=== PATIENT | female | born 1955 | race Caucasian/White ===

== ENCOUNTER → 2016-06-26 | Outpatient (CLI) | payer OTHER ==
[2016-06-26 10:21] LABS: Non-African American GFR(MDRD) >60 (>60 ml/min/1.73 sqM)
--- NOTE | 2016-06-26 15:06 | MR ---
MRI brain with and without contrast HISTORY: Meningioma Multiplanar multisequence and postcontrast images through the brain following 20 cc MultiHance IV Correlation to prior MRI brain 28 November 2015 There is no restricted diffusion to suggest subacute ischemia. Encephalomalacia, postop changes prese nt in the left temporal lobe are again noted, there is ex vacuo phenomenon the frontal horn of the le ft lateral ventricle. Some enhancement of the meninges is stable. 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 Inflammatory changes in the left frontal sinus are again seen, there is gliotic change in the left fr ontal lobe as on prior exam, there are scattered hyperintensities on inversion recovery and T2-weight ed sequences within the subcortical and periventricular white matter. There are approximately 50 lesi ons present. No hemorrhage or hydrocephalus. Corpus callosum, pituitary, cervical medullary junction, cerebellopontine angles are normal. IMPRESSION: Essentially stable exam.
== END | disposition home or self-care (01) ==
LOC: RADMRIMAIN 10:05
PROVIDERS: ATTEND Neurological Surgery
DX: D32.9 Benign neoplasm of meninges, unspecified (principal)
CPT/HCPCS: 82565; 70553; A9577

== ENCOUNTER → 2017-05-07 | Outpatient (CLI) | payer BC ==
[2017-05-07 13:13] LABS: Basophils # (A) 0.1 k/uL (0-0.2); Basophils % (A) 1 %; Eosinophils # (A) 0.5 k/uL (0-0.7); Eosinophils % (A) 7 %; HCT 45.1 % (34.0-46.0); HGB 13.9 gm/dL (11.4-16.0); Lymphocytes # (A) 1.6 k/uL (1.0-4.8); Lymphocytes % (A) 23 %; MCH 27.8 pg (25.0-35.0); MCHC 30.9 g/dL (31.0-37.0); MCV 90.2 fL (80.0-100.0); Mean Platelet Volume 7.1; Monocytes # (A) 0.3 k/uL (0-1.0); Monocytes % (A) 5 %; Neutrophils # (A) 4.3 k/uL (1.3-7.7); Neutrophils % (A) 61 %; Platelet Count 192 k/uL (150-450); RDW 13.7 % (11.5-15.5)
[2017-05-08 13:42] LABS: Alt. alternata IgE Class CLASS 0; Alternaria alternata IgE <0.35 kU/L (<0.35); Asperg. fumagatus IgE <0.35 kU/L (<0.35); Asperg. fumagatus IgE Class CLASS 0; Bermuda Grass IgE <0.35 kU/L (<0.35); Birch(Com.Silvr) IgE <0.35 kU/L (<0.35); Birch(Com.Silvr) IgE Class CLASS 0; Cat Epith & Dander IgE <0.35 kU/L (<0.35); Cat Epith & Dander IgE Class CLASS 0; Clad herbarum IgE <0.35 kU/L (<0.35); Cockroach IgE <0.35 kU/L (<0.35); Cottonwood IgE <0.35 kU/L (<0.35); Dermato. Pteronyssinus IgE <0.35 kU/L (<0.35); Dermato. farinae IgE <0.35 kU/L (<0.35); Dermato. farinae IgE Class CLASS 0; Dog Dander IgE <0.35 kU/L (<0.35); Elm IgE <0.35 kU/L (<0.35); Maple (Box Elder) IgE <0.35 kU/L (<0.35); Maple (Box Elder) IgE Class CLASS 0; Mountain Cedar IgE <0.35 kU/L (<0.35); Mountain Cedar IgE Class CLASS 0; Mouse Urine IgE Class CLASS 0; Nettle IgE <0.35 kU/L (<0.35); Nettle IgE Class CLASS 0; Oak IgE <0.35 kU/L (<0.35); Penicillium notatum IgE Class CLASS 0; Rough Marshelder IgE <0.35 kU/L (<0.35); Rough Marshelder IgE Class CLASS 0; Timothy Grass IgE <0.35 kU/L (<0.35); White Ash IgE Class CLASS 0
== END | disposition home or self-care (01) ==
LOC: LABWHC1 12:19
PROVIDERS: ATTEND Internal Medicine Sleep Medicine
DX: B44.81 Allergic bronchopulmonary aspergillosis (principal)
CPT/HCPCS: 36415; 82785; 85025; 86001; 86003; 86606; 86609

== ENCOUNTER → 2017-12-04 | Outpatient (CLI) | payer BC ==
--- NOTE | 2017-12-06 09:48 | MM ---
Reason for exam: screening (asymptomatic). Last mammogram was performed 2 years and 5 months ago. History: Patient is postmenopausal and had first child at age 34. Family history of premenopausal breast cancer in sister at age 30. Benign cyst aspiration of the right breast. 3 benign excisional biopsies of the left breast. Physical Findings: A clinical breast exam by your physician is recommended on an annual basis and results should be correlated with mammographic findings. MG 3D Screening Mammo W/Cad Bilateral CC, MLO, and XCCL view(s) were taken. Prior study comparison: July 19, 2015, bilateral MG screening mammo w CAD. December 03, 2011, bilateral digital screening mammo w/CAD. There are scattered fibroglandular densities. Stable calcifications. No significant changes when compared with prior studies. ASSESSMENT: Benign, BI-RAD 2 RECOMMENDATION: Routine screening mammogram of both breasts in 1 year.
== END | disposition home or self-care (01) ==
LOC: RADMAMWWP 08:44
PROVIDERS: ATTEND Family Medicine
DX: Z12.31 Encounter for screening mammogram for malignant neoplasm of breast (principal)
CPT/HCPCS: 77063; 77067

== ENCOUNTER → 2019-02-26 | Outpatient (CLI) | payer MEDICARE, BC ==
--- NOTE | 2019-02-27 11:29 | MM ---
Reason for exam: screening (asymptomatic). Last mammogram was performed 1 year and 3 months ago. History: Patient is postmenopausal and had first child at age 34. Family history of premenopausal breast cancer in sister at age 30. Benign cyst aspiration of the right breast. 3 benign excisional biopsies of the left breast. Physical Findings: A clinical breast exam by your physician is recommended on an annual basis and results should be correlated with mammographic findings. MG 3D Screening Mammo W/Cad Bilateral CC and MLO view(s) were taken. Prior study comparison: December 04, 2017, bilateral MG 3d screening mammo w/cad. July 19, 2015, bilateral MG screening mammo w CAD. There are scattered fibroglandular densities. Stable calcifications. No significant changes when compared with prior studies. ASSESSMENT: Benign, BI-RAD 2 RECOMMENDATION: Routine screening mammogram of both breasts in 1 year.
== END | disposition home or self-care (01) ==
LOC: RADMAMWWP 13:26
PROVIDERS: ATTEND Family Medicine
DX: Z12.31 Encounter for screening mammogram for malignant neoplasm of breast (principal)
CPT/HCPCS: 77063; 77067

== ENCOUNTER → 2019-09-08 | Outpatient (CLI) | payer MEDICARE, BC ==
[2019-09-08 16:05] LABS: African American GFR (CKD) >90 (>60 ml/min/1.73 sqM); Blood Urea Nitrogen 10 mg/dL (7-17); Non-African American GFR(CKD) >90 (>60 ml/min/1.73 sqM)
--- NOTE | 2019-09-09 07:38 | CT ---
EXAMINATION TYPE: CT soft tissue neck w con, CT ChestAbdPelvis w con DATE OF EXAM: 09/08/2019 5:28 PM COMPARISON: CT cervical and brain spine dated 08/04/2013 HISTORY: Diffuse palpable adenopathy and fatigue. CT DLP: 747.4 (accession [id number]), 2891.1 (accession [id number]) mGycm Automated exposure control for dose reduction was used. CONTRAST: CT scan of the neck, chest abdomen and pelvis is performed following with IV Contrast, patient inject ed with 100ml mL of Isovue 300. Axial images are obtained, coronal and sagittal reformatted images a re reviewed. FINDINGS: NECK: Multiple nodes are present bilaterally which are not enlarged including parenchymal parotid nod es, and along the cervical chains, supraclavicular regions Airway: No gross abnormality seen. Parotid/submandibular glands: No gross abnormality seen. Carotid/Vascular Structures: Mild atheromatous changes are present at the carotid bifurcations. Osseous Structures: There is a sclerotic appearance to the calvarium and visualized1 bones diffusely Other: At the wing of the sphenoid on the left there is a soft tissue with some scattered calcificati ons mass present as on prior CT, postop changes are noted along the middle cranial fossa laterally on the left which are new compared to prior exam. CHEST: There is some motion. Calcified granuloma is present in left lower lobe, there is a noncalcifi ed nodule also present in the left lower lobe measuring only 6 mm. Subpleural nodules are present in the left lower lobe measuring 7 mm posterior laterally. Calcified left hilar nodes are present. Some probable scarring present or atelectatic change along the right hemidiaphragm which is elevated, mult iple subcentimeter soft tissue smooth margin nodules are present in the right lower lobe, right middl e lobe. There are coronary artery calcifications. No pleural or pericardial effusion. Left axillary node is enlarged measuring approximately 1.3 cm in short axis as well as in the larger node with short axis measurement of 1.6 cm, right axillary node shows a short axis of 15 mm as well a s an additional node showing similar size, there are also subcentimeter nodes present bilaterally. No mediastinal or hilar adenopathy. ABDOMEN: Liver shows no mass is enlarged. Gallbladder shows some increased attenuation luminal lead w hich may represent stones. The spleen is enlarged. There is no adrenal mass. Right kidney shows a foc us measuring approximately 2 cm in the upper pole anteriorly which does not meet criteria for a cyst, Hounsfield unit measurements are approximately 74. Pancreas is unremarkable. There is no bowel obstr uction or retroperitoneal adenopathy. Aorta shows normal caliber with atheromatous change. There is n o pelvic adenopathy. Inguinal nodes are not enlarged. Uterus and adnexal structures are unremarkable. Uterus is within normal limits. Trace fluid present along the right paracolic gutter. Osseous structures are diffusely sclerotic. There is bilateral spondylolysis at L5, anterolisthesis g rade 1 L5-S1. Multilevel spondylosis is present. IMPRESSION: Consider myeloproliferative disorders, lymphoma. Hepatosplenomegaly. Indeterminate right renal mass. Cholelithiasis. Old granulomatous disease. Coronary artery disease.
== END | disposition home or self-care (01) ==
LOC: RADCTMAIN 15:13
PROVIDERS: ATTEND Internal Medicine Hematology & Oncology
DX: R16.2 Hepatomegaly with splenomegaly, not elsewhere classified (principal); K80.20 Calculus of gallbladder without cholecystitis without obstruction; I25.10 Atherosclerotic heart disease of native coronary artery without angina pectoris; R59.0 Localized enlarged lymph nodes
CPT/HCPCS: 82565; 84520; 70491; 71260; 74177; 36415; Q9967

== ENCOUNTER → 2019-09-21 | Day surgery (SDC) | payer MEDICARE, BC ==
[2019-09-18 10:07] VITALS: BMI 48.2
[~2019-09-21] MED LIST: ACETAMINOPHEN TAB 500 MG TAB ONE; ACETAMINOPHEN TAB 500 MG TAB PO ONE; ALBUTEROL INHALER 60 PUFF/8 GM INHALER (MHU) INHALATION ONE; BUPIVACAIN-EPI 0.25%-1:200,000 30 ML VIAL SQ ONE; DEXAMETHASONE SOD PHOSPHATE 10 MG/ML 1 ML VIAL IV ONE; HEPARIN SODIUM,PORCINE 5,000 UNIT/ML 1 ML VIAL ONE; HYDROcodone/APAP 5-325MG 1 EACH TAB PO PRN; HYDROmorphone 0.5 MG/0.5 ML SYRINGE IVP PRN; LACTATED RINGERS 1,000 ML IV SCH; LIDOCAINE 1% (10MG/ML) FOR IV START INTRADERMA PRN; LIDOCAINE 1% INJ 10MG/ML (20 ML MDV) ONE; MIDAZOLAM 2 MG/2 ML VIAL IV PRN; NALOXONE 0.4 MG/ML 1 ML VIAL IV PRN; ONDANSETRON 4 MG/2 ML VIAL ONE; PHENYLEPHRINE-0.9% NACL SYG 1 MG/10 ML SYRINGE ONE; PROPOFOL 10 MG/ML 20 ML VIAL IV ONE; Pre Op ABX Message 1 EACH MISC MISCELLANE ONE; SODIUM CHLORIDE 0.9% 100 ML with ceFAZolin 2,000 MG IV ONE; SUCCINYLCHOLINE CHLORIDE 100 MG/5 ML SYR IV ONE; fentaNYL (PF) 50 MCG/ML 2 ML AMP ONE
[2019-09-21] MEDS: HEPARIN SODIUM,PORCINE 5,000 UNIT/ML 1 ML VIAL SQ ONE ×2 (07:17→08:14)
--- NOTE | 2019-09-21 08:20 | P.HPADDEND ---
H&P Addendum H&P Addendum Date: 09/21/19 Patient is here today for scheduled excisional lymph node biopsy left occipital region. On exam and preop however the patient's lymph node felt smaller than when seen in the office a few weeks ago. Both axillary regions still with lymphadenopathy unchanged in size. The right side seems more superficial in nature. After discussing with the patient and her family who decided to change our location of our excisional lymph node biopsy to the right axilla. Risks again reviewed including bleeding infection numbness burning nerve injury seroma and inadequate specimen. She understands and wishes to proceed.
--- NOTE | 2019-09-21 09:26 | P.OP ---
Date of Procedure: 09/21/19 Procedure(s) Performed: PREOPERATIVE DIAGNOSIS: Generalized adenopathy POSTOPERATIVE DIAGNOSIS: Same PROCEDURE: Excisional biopsy deep right axillary lymph node SURGEON: Belen VILLASEÑORL: Williams Beaulieu ANESTHESIA: Gen. COMPLICATIONS: None OPERATIVE PROCEDURE: patient placed in the operative table in the supine position. The patient was placed under general anesthesia. The right axillary region was prepped and draped sterilely. A curvilinear incision was made in the right axilla. Dissection through the subcutaneous tissues took place using electrocautery. Small vessels or lymphatics were clipped. The patient's enlarged lymph node was identified and carefully dissected using a combination of electrocautery and the LigaSure device. The patient had 2 matted nodes the largest measured 2 to 2.5 cm. This was fully excised and sent to pathology as a fresh specimen. The operative site was inspected. No bleeding was seen. The subcutaneous tissues were closed using 3-0 Vicryl sutures. The skin was closed using a running 4-0 Monocryl stitch. Skin glue and sterile dressings were applied. DISPOSITION: Stable to recovery room
[2019-09-21 09:40] VITALS: TEMP 97.6
[2019-09-21 10:16] VITALS: RESP 17
[2019-09-21 11:51] VITALS: BP 117/68; PULSE 81
== END ==
LOC: OR 06:39
PROVIDERS: ATTEND Surgery
DX: R59.1 Generalized enlarged lymph nodes (principal); D69.6 Thrombocytopenia, unspecified; J45.909 Unspecified asthma, uncomplicated; K76.9 Liver disease, unspecified; R53.1 Weakness; I10 Essential (primary) hypertension; E78.5 Hyperlipidemia, unspecified; M51.9 Unspecified thoracic, thoracolumbar and lumbosacral intervertebral disc disorder; D32.0 Benign neoplasm of cerebral meninges; Z79.51 Long term (current) use of inhaled steroids; Z79.899 Other long term (current) drug therapy; Z98.42 Cataract extraction status, left eye; Z96.1 Presence of intraocular lens; Z96.653 Presence of artificial knee joint, bilateral; Z98.890 Other specified postprocedural states; Z87.891 Personal history of nicotine dependence; Z80.3 Family history of malignant neoplasm of breast; Z80.42 Family history of malignant neoplasm of prostate
CPT/HCPCS: 38525; J2250; J1644; J1100; J0690; J2001; J3010; J2370; J0330; J2704

== ENCOUNTER 2019-09-25 20:07 | Emergency (ER) | payer MEDICARE, BC ==
[2019-09-25] MEDS ORDERED: RX INFO: IV CONTRAST WAS GIVEN 1 EACH MISC MISCELLANE PRN (20:34)
--- NOTE | 2019-09-25 20:37 | ED ---
General Adult HPI - General Chief complaint: Recheck/Abnormal Lab/Rx Stated complaint: Hearing problems Time Seen by Provider: 09/25/19 20:20 Source: patient Mode of arrival: wheelchair Limitations: no limitations - History of Present Illness Initial comments: Dictation was produced using [employer] dictation software. please excuse any grammatical, word or spelling errors. This patient was cared for during a federal and state declared state of [facility] secondary to Covid 19 Chief Complaint: 63-year-old female past medical history of brain tumor status post excision 4 years ago. History of Present Illness: Patient 63-year-old female she has past medical history of brain cancer that was removed 4 years ago. Patient unable to tole rate what exactly that tumor was. She states that over the last several days she's been experiencing hearing changes. On the left side she feels like a whooshing noise like a constant River flowing. On the right ear she hears Charmaine. Patient has a noticing paresthesias to the arms or legs. Denies ataxia. No visual loss. She reports that she had a surgery to remove the brain mass however she states he were not able to remove all of it. States it is located to the frontal region. The ROS documented in this emergency department record has been reviewed and confirmed by me. Those systems with pertinent positive or negative responses have been documented in the HPI. All other systems are other negative and/or noncontributory. PHYSICAL EXAM: General Impression: Alert and oriented x3, not in acute distress HEENT: Normocephalic atraumatic, extra-ocular movements intact, pupils equal and reactive to light bilaterally, mucous membranes moist, bilateral tympanic membranes clear Cardiovascular: Heart regular rate and rhythm Chest: Able to complete full sentences, no retractions, no tachypnea Abdomen: abdomen soft, non-tender, non-distended, no organomegaly Musculoskeletal: Pulses present and equal in all extremities, no peripheral edema Motor: no focal deficits noted Neurological: CN II-XII grossly intact, no focal motor or sensory deficits noted, not ataxic, gait stable Skin: Intact with no visualized rashes Psych: Normal affect and mood ED course:64-year-old female presents with hearing changes she has a history of brain tumor status post excision. Vital signs upon arrival are within acceptable limits. Computed tomography scan of the brain shows large sella turcica mass on the left side which appears to be not changed significantly compared to old computed tomography scan from 2014. There is no acute intracranial abnormality. Laboratory evaluation was obtained with multiple abnormalities. Patient leukocytosis 16.1, hemoglobin 7.5 platelet count of 60. Discussed these findings with patient. Patient states she's been having blood work that has been performed outpatient by a specialist at's. She reports that these lab abnormalities that are apparent on her lab work today is known by her specialist and currently being evaluated and monitored. Coag panel is unremarkable. Metabolic panel is negative. Patient is well-appearing at bedside. She is ag reeable for discharge. Patient has any bleeding. No dark stools. No nausea vomiting. Patient feels well. Patient told that her hemoglobin is low and to seek immediate medical attention if she starts developing symptoms of lightheadedness, fatigue, orthostasis or dark bloody stools. Patient is agreeable. She has an appointment with her doctor on Saturday. Patient given ENT referral for hearing changes. This point is not entirely clear why patient is experiencing these hearing issues. This likely related to intracranial mass. EKG interpretation: Ventricular rate 79, sinus rhythm,. 144, QRS 80, QTC 470. No SD prolongation, no QTC prolongation, no ST or T-wave changes noted. . Overall, this EKG is unremarkable - Related Data Home Medications Medication Instructions Recorded Confirmed Lisinopril [Prinivil] 20 mg PO DAILY 01/22/17 09/25/19 Oxybutynin Chloride [Oxybutynin 10 mg PO DAILY 01/22/17 09/25/19 Chloride ER] Cholecalciferol (Vitamin D3) 125 mcg PO DAILY 09/17/19 09/25/19 [Vitamin D3] Cyanocobalamin (Vitamin B-12) 1,000 mcg PO DAILY 09/17/19 09/25/19 [Vitamin B-12] Gabapentin [Neurontin] 200 mg PO HS 09/17/19 09/25/19 Montelukast [Singulair] 10 mg PO HS 09/17/19 09/25/19 Multivitamins, Thera [Multivitamin 1 tab PO DAILY 09/17/19 09/25/19 (formulary)] Allopurinol [Zyloprim] 300 mg PO DAILY 09/25/19 09/25/19 Budesonide-Formot 160-4.5 Mcg 1 puff INHALATION RT-DAILY PRN 09/25/19 09/25/19 [Symbicort 160-4.5 Mcg Inhaler] Calcium Carbonate [Calcium] 600 mg PO DAILY 09/25/19 09/25/19 Allergies Allergy/AdvReac Type Severity Reaction Status Date / Time No Known Allergies Allergy Verified 09/25/19 21:24 Review of Systems ROS Statement: Those systems with pertinent positive or pertinent negative responses have been documented in the HPI. ROS Other: All systems not noted in ROS Statement are negative. Past Medical History Past Medical History: Hyperlipidemia, Hypertension, Respiratory Disorder Additional Past Medical History / Comment(s): Chronic low back pain, degenerative disc disease, benign neoplasm of cerebral meninges. hx asthma last few months more sob unable to get into pulmonary dr until saturday.no inhalers usedor o2 History of Any Multi-Drug Resistant Organisms: None Reported Past Surgical History: Breast Surgery, Section, Joint Replacement Additional Past Surgical History / Comment(s): brain surgery. BILAT TKA. LT SHOULDER SX. LT CATARACT REMOVED WITH LENS IMPLANT Past Anesthesia/Blood Transfusion Reactions: No Reported Reaction Past Psychological History: No Psychological Hx Reported Smoking Status: Former smoker Past Alcohol Use History: Occasional Past Drug Use History: None Reported - Past Family History Sister(s) Family Medical History: Cancer General Exam Limitations: no limitations Course Vital Signs 09/25/19 09/25/19 09/25/19 20:11 20:50 21:05 Temperature 98.0 F 98.7 F 98.1 F Pulse Rate 81 75 71 Respiratory 20 18 18 Rate Blood Pressure 138/74 130/71 121/69 O2 Sat by Pulse 93 L 96 97 Oximetry 09/25/19 09/25/19 21:20 21:35 Temperature Pulse Rate 72 70 Respiratory 16 18 Rate Blood Pressure 126/65 119/61 O2 Sat by Pulse 98 97 Oximetry Medical Decision Making - Lab Data Result diagrams: 09/25/19 20:36 09/25/19 20:36 Lab Results 09/25/19 09/25/19 09/25/19 Range/Units 20:36 20:36 20:36 WBC 16.1 H (3.8-10.6) k/uL RBC 2.02 L (3.80-5.40) m/uL Hgb 7.5 L (11.4-16.0) gm/dL Hct 24.9 L (34.0-46.0) % MCV 123.3 H (80.0-100.0) fL MCH 37.3 H (25.0-35.0) pg MCHC 30.2 L (31.0-37.0) g/dL RDW 20.2 H (11.5-15.5) % Plt Count 60 L (150-450) k/uL Neutrophils % (Manual) 59 % Band Neutrophils % 2 % Lymphocytes % (Manual) 32 % Monocytes % (Manual) 5 % Eosinophils % (Manual) 1 % Metamyelocytes % 2 % Neutrophils # (Manual) 9.80 H (1.3-7.7) k/uL Lymphocytes # (Manual) 5.15 H (1.0-4.8) k/uL Monocytes # (Manual) 0.81 (0-1.0) k/uL Eosinophils # (Manual) 0.16 (0-0.7) k/uL Metamyelocytes # (Man) 0.32 H (0) k/uL Nucleated RBCs 18 H (0-0) /100 WBC Manual Slide Review Performed Polychromasia Present Hypochromasia Marked Hypochromasia (manual) Present Poikilocytosis Moderate Poikilocytosis (manual Present Anisocytosis Moderate Anisocytosis (manual) Present Macrocytosis Marked A PT 10.2 (9.0-12.0) sec INR 1.0 (<1.2) APTT 22.3 (22.0-30.0) sec Sodium 137 (137-145) mmol/L Potassium 3.7 (3.5-5.1) mmol/L Chloride 105 (98-107) mmol/L Carbon Dioxide 23 (22-30) mmol/L Anion Gap 9 mmol/L BUN 11 (7-17) mg/dL Creatinine 0.43 L (0.52-1.04) mg/dL Est GFR (CKD-EPI)AfAm >90 (>60 ml/min/1.73 sqM) Est GFR (CKD-EPI)NonAf >90 (>60 ml/min/1.73 sqM) Glucose 157 H (74-99) mg/dL Calcium 8.4 (8.4-10.2) mg/dL Disposition Clinical Impression: Hearing abnormally acute Disposition: HOME SELF-CARE Condition: Good Instructions (If sedation given, give patient instructions): Anemia (ED), Thrombocytopenia (ED) Is patient prescribed a controlled substance at d/c from ED?: No Referrals: Jorge Andrade DO [Primary Care Provider] - 1-2 days Lars Saenz DO [Doctor of Osteopathic Medicine] - 1-2 days Time of Disposition: 22:37
[2019-09-25 20:57] LABS: Partial Thromboplastin Time 22.3 sec (22.0-30.0); Prothrombin Time 10.2 sec (9.0-12.0)
[2019-09-25 21:05] LABS: Anisocytosis Moderate; HCT 24.9 % (34.0-46.0); HGB 7.5 gm/dL (11.4-16.0); Hypochromasia Marked; MCH 37.3 pg (25.0-35.0); MCHC 30.2 g/dL (31.0-37.0); MCV 123.3 fL (80.0-100.0); Macrocytosis Marked; Mean Platelet Volume 11.6; Poikilocytosis Moderate; RBC 2.02 m/uL (3.80-5.40); RDW 20.2 % (11.5-15.5)
[2019-09-25 21:07] LABS: Platelet Count 60 k/uL (150-450)
[2019-09-25 21:08] LABS: African American GFR (CKD) >90 (>60 ml/min/1.73 sqM); Anion Gap 9 mmol/L; Blood Urea Nitrogen 11 mg/dL (7-17); Calcium 8.4 mg/dL (8.4-10.2); Carbon Dioxide 23 mmol/L (22-30); Chloride 105 mmol/L (98-107); Glucose 157 mg/dL (74-99); Non-African American GFR(CKD) >90 (>60 ml/min/1.73 sqM); Potassium 3.7 mmol/L (3.5-5.1); Sodium 137 mmol/L (137-145)
[2019-09-25 21:40] LABS: Band Neutrophils % 2 %; Metamyelocytes % 2 %; Neutrophils % (M) 59 %; Nucleated Red Blood Cells 18 /100 WBC (0-0); Total Cells Counted 200
[2019-09-25 21:41] LABS: Anisocytosis (M) Present; Eosinophils # (M) 0.16 k/uL (0-0.7); Lymphocytes # (M) 5.15 k/uL (1.0-4.8); Metamyelocytes # (M) 0.32 k/uL (0); Monocytes # (M) 0.81 k/uL (0-1.0); Poikilocytosis (M) Present; Polychromasia Present; WBC 16.1 k/uL (3.8-10.6)
[2019-09-25 21:42] LABS: Hypochromasia (M) Present
[2019-09-25 21:49] VITALS: RESP 18
--- NOTE | 2019-09-25 22:12 | CT ---
EXAMINATION TYPE: CT brain w con DATE OF EXAM: 09/25/2019 COMPARISON: 11/20/2013 HISTORY: Brain mass CT DLP: 1739.4 mGycm Automated exposure control for dose reduction was used. CONTRAST: Performed with IV Contrast, patient injected with 100 mL of Isovue 300. There is a 2.1 x 2.2 cm high density mass at the greater wing of the sphenoid bone on the left side a t the anterior clinoid process. 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 There is hypodensity in the adjacent posterior frontal lobe and anterior left temporal lobe. There is old left temporal cran iotomy defect. There is hyperostosis frontalis. Noncontrast scan was not performed. There is some mil d enlargement of the frontal horn of the left lateral ventricle consistent with encephalomalacia. The re is no midline shift. I see no sign of intracranial hemorrhage. IMPRESSION: Large mass at the sella turcica on the left side which is probably enhancing and consistent with tube rculum sella meningioma that is not changed significantly in size compared to old CT scan. There is o ld encephalomalacia left frontal and left temporal lobe. No acute intracranial abnormality.
[2019-09-25 23:02] VITALS: BP 116/60; PULSE 77; TEMP 97.7
== END 2019-09-25 23:00 | disposition home or self-care (01) ==
LOC: EC 20:07
DX: H93.239 Hyperacusis, unspecified ear (principal); I10 Essential (primary) hypertension; Z79.51 Long term (current) use of inhaled steroids; Z79.899 Other long term (current) drug therapy; Z87.891 Personal history of nicotine dependence; Z96.653 Presence of artificial knee joint, bilateral
CPT/HCPCS: 36415; 80048; 85025; 85610; 85730; 70460; 99284; Q9967

== ENCOUNTER → 2019-09-30 | Outpatient (CLI) | payer MEDICARE, BC ==
--- NOTE | 2019-09-30 14:47 | XR ---
EXAMINATION TYPE: XR wrist limited LT DATE OF EXAM: 09/30/2019 COMPARISON: NONE HISTORY: Pain TECHNIQUE: Two views submitted. FINDINGS: The osseous structures are intact. There is severe arthropathy of the first carpal metacarpal joint. No destructive changes. Sclerosis involving the lunate bone likely chronic. No acute fracture or disl ocation. IMPRESSION: 1. Severe arthropathy first carpal metacarpal joint in a pattern most typical of osteoarthritis.
== END | disposition home or self-care (01) ==
LOC: RADXRMAIN 14:11
PROVIDERS: ATTEND Internal Medicine Hematology & Oncology
DX: M19.032 Primary osteoarthritis, left wrist (principal); J45.909 Unspecified asthma, uncomplicated; Z71.3 Dietary counseling and surveillance
CPT/HCPCS: 86850; 86870; 86880; 86900; 86901; 86920

== ENCOUNTER → 2019-10-02 | Outpatient (CLI) | payer MEDICARE, BC ==
--- NOTE | 2019-10-05 08:00 | PE ---
Nuclear medicine PET/CT HISTORY: Breast carcinoma, initial Patient received 11.5 mCi F-18 FDG intravenously in delayed scanning was performed from the skull bas e to the mid thighs. Localization and attenuation correction CT scan was performed. Correlation to chest abdomen pelvis CT 09/08/2019 Chest and neck: Bilateral axillary nodes show uptake. There are bilateral soft tissue nodules within the parotid glands which may represent lymph nodes and show mild uptake. Mild uptake present at the j ugulodigastric node on the right. No supraclavicular adenopathy. No mediastinal, hilar adenopathy. Ca lcified left hilar nodes, left lower lobe nodule is present. There is minimal right-sided dependent a telectatic change, there may be minimal right pleural effusion. There are dense coronary artery calci fications. ABDOMEN: There is no evident liver mass. No adrenal lesion or retroperitoneal adenopathy. Aorta shows normal caliber. There is no ascites. Uterus and adnexal structures are unremarkable. Diverticular ch anges associated with the colon. Osseous structures show diffuse sclerotic foci throughout the spine, sternum, pelvis and proximal low er extremities, clavicles, proximal upper extremities and shoulders, there are some areas of associat ed uptake. Bilateral spondylolysis present at L5, there is anterolisthesis grade 1 L5-S1. Lytic lesio n noted to the left of midline in the L2 vertebral body measures only 1 cm IMPRESSION: Metastatic disease to the skeleton. There are additional foci of abnormal uptake involvin g the bilateral axilla, parotid glands as described.
== END | disposition home or self-care (01) ==
LOC: RADPETMAIN 15:50
PROVIDERS: ATTEND Internal Medicine Hematology & Oncology
DX: C79.51 Secondary malignant neoplasm of bone (principal); R93.89 Abnormal findings on diagnostic imaging of other specified body structures; C50.811 Malignant neoplasm of overlapping sites of right female breast
CPT/HCPCS: 78815; A9552

== ENCOUNTER → 2019-11-13 | Outpatient (CLI) | payer MEDICARE, BC ==
--- NOTE | 2019-11-13 10:45 | MR ---
EXAMINATION TYPE: MR brain wo/w con DATE OF EXAM: 11/13/2019 COMPARISON: Prior MR brain 06/26/2016, CT 09/25/2019 HISTORY: Breast Cancer, visual disturbance TECHNIQUE: Multiplanar, multisequence images of the brain and brainstem is performed without and with IV contras t, utilizing 11 mL intravenous Gadavist . FINDINGS: Diffusion weighted images demonstrate no evidence of a recent infarct or other diffusion ab normality. There is stable postop changes in the middle cranial fossae, sphenoid wing meningioma aga in noted and shows a stable appearance, there is encephalomalacia present in the left frontal and tem poral lobes with associated scoliosis, extraocular phenomenon of the frontal horn of the left lateral ventricle. The ventricular system and cisternal spaces are stable. White matter signal changes are a gain noted and extensive, not significantly changed compared to prior exam accounting for differences in technique. The brain volume is age appropriate. Midline structures demonstrate normal morphology. The craniocervical junction appears within normal limits. Post contrast images demonstrate stable abnormal enhancement of the patient's mass along the sphenoid wing on the left, femoral enhancement present and is more conspicuous than on prior exam. T he dural venous sinuses appear patent. The visualized sinuses are clear and the globes are intact. Fo cus of enhancement and T2, inversion recovery T2 bright signal is present in the posterior parietal s kull corresponding to a lucent focus on CT. Lesion is not seen on prior brain MRI. IMPRESSION: Metastatic disease to bone. Dural enhancement more conspicuous than on prior exam.
== END | disposition home or self-care (01) ==
LOC: RADMRIMAIN 07:32
PROVIDERS: ATTEND Internal Medicine Hematology & Oncology
DX: C79.51 Secondary malignant neoplasm of bone (principal); H53.8 Other visual disturbances
CPT/HCPCS: 70553; A9585

== ENCOUNTER → 2019-12-29 | Outpatient (CLI) | payer MEDICARE, BC ==
--- NOTE | 2019-12-29 18:47 | XR ---
Result: History: Right wrist pain. History of malignancy. Comparison: None available. Technique: 3 views of the right wrist. Findings: Bone mineralization is appropriate for age. There is no acute fracture or dislocation. There is severe osteoarthritis of the thumb basal joints. Otherwise scattered mild degenerative changes elsewhere. No radiographic evidence of destructive lesi ons. Impression: No acute osseous abnormality. 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
== END | disposition home or self-care (01) ==
LOC: RAD 16:24
PROVIDERS: ATTEND Internal Medicine Hematology & Oncology
DX: M19.041 Primary osteoarthritis, right hand (principal); C50.911 Malignant neoplasm of unspecified site of right female breast

== ENCOUNTER → 2020-02-24 | Outpatient (CLI) | payer MEDICARE, BC | END | disposition home or self-care (01) | LOC: RADMRIMAIN 09:19 | PROVIDERS: ATTEND Internal Medicine Hematology & Oncology | DX: Z53.9 Procedure and treatment not carried out, unspecified reason (principal) ==

== ENCOUNTER → 2020-08-18 | Outpatient (CLI) | payer MEDICARE, BC ==
[2020-08-18 12:17] LABS: African American GFR (CKD) >90 (>60 ml/min/1.73 sqM); Blood Urea Nitrogen 10 mg/dL (7-17); Non-African American GFR(CKD) >90 (>60 ml/min/1.73 sqM)
--- NOTE | 2020-08-18 17:22 | NM ---
EXAMINATION TYPE: NM bone scan whole body DATE OF EXAM: 08/18/2020 COMPARISON: Same day CT study. HISTORY: Breast cancer. Delayed whole-body scanning was performed following the injection of 23.2 mCi Tc 99m MDP. Images acq uired 3.25 hours post injection. Whole body images in anterior and posterior projection along with ad ditional spot images of the thorax abdomen and pelvis are acquired. FINDINGS: There is focal radiotracer uptake overlying the right breast marked as contamination by technologist. Diffuse osseous sclerotic metastatic disease on CT is not as well-seen on bone scan as there is over all diminished excretion. Findings are consistent with SuperScan appearance. Lucency bilateral knees likely product of metallic prosthesis at this level. IMPRESSION: Diffuse osseous metastatic disease seen better on CT versus bone scan.
--- NOTE | 2020-08-18 18:30 | CT ---
EXAMINATION TYPE: CT ChestAbdPelvis w con DATE OF EXAM: 08/18/2020 COMPARISON: Prior PET/CT October 02, [address] September 08, 2019 HISTORY: Breast cancer. Currently on chemotherapy. CT DLP: 2474.5 mGycm. Automated Exposure Control for Dose Reduction was Utilized. CONTRAST: CT scan of the thorax, abdomen and pelvis is performed with IV Contrast, patient injected with 100 mL of Isovue M300. FINDINGS: LUNGS: There is a 7 mm superior calcified left lower lobe nodule or granuloma axial image 27 redemons trated. There is stable 4 to 5 mm noncalcified nodule inferior posterior to this axial image 29 redem onstrated. A few additional scattered subcentimeter nodules in the right lower lobe are redemonstrate d. No new or enlarging nodules. Low lung volumes redemonstrated. There is no pleural effusion or pneu mothorax seen. The tracheobronchial tree is patent. MEDIASTINUM: There are no greater than 1 cm hilar or mediastinal lymph nodes. No cardiomegaly or pe ricardial effusion is seen. Moderate coronary artery calcification redemonstrated. OTHER: Prominent bilateral axillary lymph nodes remain present. Largest left axilla measures 1.8 x 1. 3 cm current study series 3 image 5 similar to prior. There is scar tissue and surgical clips towards the right axilla current study axial image 9. Inferior to this persistent prominent lymph nodes rede monstrated though smaller in size versus prior study. LIVER/GB: Subcentimeter hypodense lesion in the hepatic dome axial image 35 is stable presumed benign . Dependent small gallstones. New mild inferior periHepatic ascites. PANCREAS: No significant abnormality is seen. SPLEEN: No significant abnormality is seen. ADRENALS: No significant abnormality is seen. KIDNEYS: No significant abnormality is seen. BOWEL: Oral contrast reaches level of the left colon. No suspicious small or large bowel dilatation. GENITAL ORGANS: Anteverted uterus. Scattered bilateral pelvic phleboliths LYMPH NODES: No new greater than 1cm abdominal or pelvic lymph nodes are appreciated. OSSEOUS STRUCTURES: Diffuse osseous sclerotic metastatic disease involving all visualized osseous str uctures is more prominent from older study. Bilateral pars defect L5 level with spondylolisthesis L5- S1 and advanced disc space narrowing. OTHER: Mild intra-abdominal and intrapelvic peritoneal ascites including along paracolic gutters. IMPRESSION: Interval surgery right axilla. Prominent right axillary lymph nodes are identified but l ess prominent versus prior studies. Continued diffuse osseous sclerotic metastatic disease progressio n. Left axillary adenopathy stable from prior studies. No new or enlarging masses or adenopathy other crowe identified. New Mild intra-abdominal ascites of uncertain etiology.
== END | disposition home or self-care (01) ==
LOC: RADNMMAIN 11:01
PROVIDERS: ATTEND Internal Medicine Hematology & Oncology
DX: C79.51 Secondary malignant neoplasm of bone (principal); C50.919 Malignant neoplasm of unspecified site of unspecified female breast; R18.8 Other ascites; R59.0 Localized enlarged lymph nodes
CPT/HCPCS: 82565; 84520; 71260; 74177; 36415; 78306; A9503; Q9967 ×2

== ENCOUNTER 2020-09-16 17:42 | Inpatient (IN) | payer MEDICARE, BC ==
--- NOTE | 2020-09-16 18:05 | ED ---
General Adult HPI - General Chief complaint: Shortness of Breath Stated complaint: confusion Time Seen by Provider: 09/16/20 17:59 Source: patient, family Mode of arrival: wheelchair Limitations: no limitations - History of Present Illness Initial comments: Patient presents to the ED with her son for evaluation. Patient states that she has felt generally weak for the past several days. Patient states that she has metastatic breast cancer (with bone mets), and she states that she is currently being treated with oral chemotherapy. Patient's son states that the patient has been more confused recently, and he is concerned that she is a fall risk. He states that the patient lives alone. Patient admits to having a mild, chronic and unchanged cough. Patient also admits to having chronic and unchanged dyspnea. Patient denies having any pain, fever or chills, headache, focal neuro deficit, neck pain or stiffness, chest pain, hemoptysis, palpitations, syncope, abdominal pain, nausea/vomiting/diarrhea, bloody or melanotic stool, dysuria/hematuria/urinary frequency/urinary symptoms, leg or calf swelling or pain, or any other symptoms or complaints. - Related Data Home Medications Medication Instructions Recorded Confirmed Oxybutynin Chloride [Oxybutynin 10 mg PO DAILY@0901/22/17 09/16/20 Chloride ER] lisinopriL [Prinivil] 20 mg PO DAILY@0901/22/17 09/16/20 Cholecalciferol (Vitamin D3) 125 mcg PO DAILY 09/17/19 09/16/20 [Vitamin D3] Cyanocobalamin (Vitamin B-12) 1,000 mcg PO DAILY 09/17/19 09/16/20 [Vitamin B-12] Gabapentin [Neurontin] 200 mg PO HS@199909/17/19 09/16/20 Multivitamins, Thera [Multivitamin 1 tab PO DAILY 09/17/19 09/16/20 (formulary)] Calcium Carbonate [Calcium] 600 mg PO DAILY 09/25/19 09/16/20 Abemaciclib [Verzenio] 50 mg PO BID@1000,2100 09/16/20 09/16/20 Calcium Carbonate [Tums] 500 mg PO QID 09/16/20 09/16/20 Ferrous Sulfate [Feosol] 325 mg PO DAILY 09/16/20 09/16/20 Letrozole [Femara] 2.5 mg PO HS@2000 09/16/20 09/16/20 Ondansetron [Zofran] 4 mg PO Q6H PRN 09/16/20 09/16/20 Allergies Allergy/AdvReac Type Severity Reaction Status Date / Time No Known Allergies Allergy Verified 09/16/20 19:13 Review of Systems ROS Statement: Those systems with pertinent positive or pertinent negative responses have been documented in the HPI. ROS Other: All systems not noted in ROS Statement are negative. Past Medical History Past Medical History: Cancer, Hyperlipidemia, Hypertension, Respiratory Disorder Additional Past Medical History / Comment(s): Chronic low back pain, degenerative disc disease, benign neoplasm of cerebral meninges. hx asthma last few months more sob unable to get into pulmonary dr until saturday.no inhalers usedor o2 History of Any Multi-Drug Resistant Organisms: None Reported Past Surgical History: Breast Surgery, Section, Joint Replacement Additional Past Surgical History / Comment(s): brain surgery. BILAT TKA. LT SHOULDER SX. LT CATARACT REMOVED WITH LENS IMPLANT Past Anesthesia/Blood Transfusion Reactions: No Reported Reaction Past Psychological History: No Psychological Hx Reported Smoking Status: Former smoker Past Alcohol Use History: None Reported Past Drug Use History: None Reported - Past Family History Sister(s) Family Medical History: Cancer General Exam Limitations: no limitations General appearance: alert, in no apparent distress Head exam: Present: atraumatic, normocephalic Eye exam: Present: PERRL, EOMI, scleral icterus ENT exam: Present: mucous membranes moist Neck exam: Present: other (Trachea is in midline). Absent: tenderness, meningismus Respiratory exam: Present: normal lung sounds bilaterally. Absent: respiratory distress, wheezes, rales, rhonchi, stridor Cardiovascular Exam: Present: regular rate, normal rhythm, normal heart sounds, other (Normal radial pulses bilaterally) GI/Abdominal exam: Present: soft. Absent: distended, tenderness, guarding Extremities exam: Present: other (Negative Homans sign bilaterally). Absent: tenderness, pedal edema, calf tenderness Neurological exam: Present: alert, oriented X3, CN II-XII intact. Absent: motor sensory deficit Psychiatric exam: Present: normal affect, normal mood Skin exam: Present: warm, dry, intact, other (Jaundice) Course Vital Signs 09/16/20 09/16/20 09/16/20 17:47 18:04 19:14 Temperature 99.9 F H 98.2 F Pulse Rate 89 85 Pulse Rate [ 92 Radiology Tech ] Respiratory 20 16 Rate Blood Pressure 113/58 109/45 O2 Sat by Pulse 93 L 98 Oximetry 09/16/20 09/16/20 20:31 21:50 Temperature 98.2 F Pulse Rate 98 95 Pulse Rate [ Radiology Tech ] Respiratory 18 18 Rate Blood Pressure 126/69 152/70 O2 Sat by Pulse 97 95 Oximetry - Reevaluation(s) Reevaluation #1: 09/16/20 22:29 Case, H&P, test results and ED management thus far were discussed with Dr. Glover (general surgery). He recommends admitting the patient to the medical service, and he states that he will see the patient in consultation. He also recommends GI consultation. He has no further recommendations at this time. 09/16/20 22:33 Case, H&P, test results, ED management thus far and my discussion with Dr. Glover as above were discussed with Dr. De La Fuente. He accepts hospital admission. He agrees with GI and oncology consultations. He recommends a clear liquid diet. He has no further recommendations at this time. 09/16/20 22:42 Patient and son are aware the patient's test results and my discussions as above. They both agree with hospital admission at this time. Patient denies development of any new symptoms while in the ED. Patient remains alert and breathing comfortably. EKG Findings - EKG Comments: EKG Findings:: Normal sinus rhythm, no ectopy, ventricular rate of 89 bpm, normal [place] and QRS intervals, normal QT interval, normal axis, nonspecific T-wave abnormality Medical Decision Making - Medical Decision Making Given the patient's low-grade fever, leukocytosis and CT/gallbladder ultrasound findings, I suspect that the patient may have pneumonia, as well as gallbladder disease. Patient's bilirubin is elevated and her gallbladder ultrasound shows evidence of acute and chronic cholecystitis. Dr. Glover (general surgeon) was consulted from the ED, and he feels that this may also be a reflection of a choledocholithiasis. He he states that he will see the patient in consultation, and he is also recommended GI consultation. Dr. De La Fuente has accepted hospital admission. Patient was treated with IV Zosyn and IV fluids in the ED. - Lab Data Result diagrams: 09/16/20 20:05 09/16/20 18:45 Lab Results 09/16/20 09/16/20 09/16/20 Range/Units 18:01 18:45 18:45 WBC (3.8-10.6) k/uL RBC (3.80-5.40) m/uL Hgb (11.4-16.0) gm/dL Hct (34.0-46.0) % MCV (80.0-100.0) fL MCH (25.0-35.0) pg MCHC (31.0-37.0) g/dL RDW (11.5-15.5) % Plt Count (150-450) k/uL MPV Neutrophils % (Manual) % Band Neuts % (Manual) % Lymphocytes % (Manual) % Monocytes % (Manual) % Eosinophils % (Manual) % Metamyelocytes % % Myelocytes % % Neutrophils # (Manual) (1.3-7.7) k/uL Lymphocytes # (Manual) (1.0-4.8) k/uL Monocytes # (Manual) (0-1.0) k/uL Eosinophils # (Manual) (0-0.7) k/uL Metamyelocytes # (Man) (0) k/uL Myelocytes # (Manual) (0) k/uL Nucleated RBCs (0-0) /100 WBC Manual Slide Review Polychromasia Hypochromasia Anisocytosis Macrocytosis Winston-Meckling Bodies Fragmented RBCs PT 14.8 H (9.0-12.0) sec INR 1.5 H (<1.2) APTT 27.9 (22.0-30.0) sec D-Dimer 3.47 H (<0.60) mg/L FEU Sodium 131 L (137-145) mmol/L Potassium 5.4 H (3.5-5.1) mmol/L Chloride 104 (98-107) mmol/L Carbon Dioxide 19 L (22-30) mmol/L Anion Gap 8 mmol/L BUN 16 (7-17) mg/dL Creatinine 0.93 (0.52-1.04) mg/dL Est GFR (CKD-EPI)AfAm 75 (>60 ml/min/1.73 sqM) Est GFR (CKD-EPI)NonAf 65 (>60 ml/min/1.73 sqM) Glucose 107 H (74-99) mg/dL Lactic Ac Sepsis Rflx Plasma Lactic Acid Phani (0.7-2.0) mmol/L Calcium 9.9 (8.4-10.2) mg/dL Magnesium 2.5 H (1.6-2.3) mg/dL Total Bilirubin 10.2 H (0.2-1.3) mg/dL AST 205 H (14-36) U/L ALT 43 H (4-34) U/L Alkaline Phosphatase 117 (38-126) U/L Ammonia (<30) umol/L Troponin I (0.000-0.034) ng/mL NT-Pro-B Natriuret Pep pg/mL Total Protein 6.3 (6.3-8.2) g/dL Albumin 3.2 L (3.5-5.0) g/dL Urine Color Dark Brown Urine Appearance Cloudy H (Clear) Urine pH 5.5 (5.0-8.0) Ur Specific [place] 1.023 (1.001-1.035) Urine Protein 1+ H (Negative) Urine Glucose (UA) Negative (Negative) Urine Ketones Trace H (Negative) Urine Blood Trace H (Negative) Urine Nitrite Negative (Negative) Urine Bilirubin 3+ H (Negative) Urine Urobilinogen 8.0 (<2.0) mg/dL Ur Leukocyte Esterase Small H (Negative) Urine RBC 2 (0-5) /hpf Urine WBC 10 H (0-5) /hpf Ur Squamous Epith Cells 1 (0-4) /hpf Urine Mucus Many H (None) /hpf Coronavirus (PCR) (Not Detectd) 09/16/20 09/16/20 09/16/20 Range/Units 18:45 18:45 18:45 WBC (3.8-10.6) k/uL RBC (3.80-5.40) m/uL Hgb (11.4-16.0) gm/dL Hct (34.0-46.0) % MCV (80.0-100.0) fL MCH (25.0-35.0) pg MCHC (31.0-37.0) g/dL RDW (11.5-15.5) % Plt Count (150-450) k/uL MPV Neutrophils % (Manual) % Band Neuts % (Manual) % Lymphocytes % (Manual) % Monocytes % (Manual) % Eosinophils % (Manual) % Metamyelocytes % % Myelocytes % % Neutrophils # (Manual) (1.3-7.7) k/uL Lymphocytes # (Manual) (1.0-4.8) k/uL Monocytes # (Manual) (0-1.0) k/uL Eosinophils # (Manual) (0-0.7) k/uL Metamyelocytes # (Man) (0) k/uL Myelocytes # (Manual) (0) k/uL Nucleated RBCs (0-0) /100 WBC Manual Slide Review Polychromasia Hypochromasia Anisocytosis Macrocytosis Winston-Meckling Bodies Fragmented RBCs PT (9.0-12.0) sec INR (<1.2) APTT (22.0-30.0) sec D-Dimer (<0.60) mg/L FEU Sodium (137-145) mmol/L Potassium (3.5-5.1) mmol/L Chloride (98-107) mmol/L Carbon Dioxide (22-30) mmol/L Anion Gap mmol/L BUN (7-17) mg/dL Creatinine (0.52-1.04) mg/dL Est GFR (CKD-EPI)AfAm (>60 ml/min/1.73 sqM) Est GFR (CKD-EPI)NonAf (>60 ml/min/1.73 sqM) Glucose (74-99) mg/dL Lactic Ac Sepsis Rflx Plasma Lactic Acid Phani 2.2 H* (0.7-2.0) mmol/L Calcium (8.4-10.2) mg/dL Magnesium (1.6-2.3) mg/dL Total Bilirubin (0.2-1.3) mg/dL AST (14-36) U/L ALT (4-34) U/L Alkaline Phosphatase (38-126) U/L Ammonia 37 H (<30) umol/L Troponin I <0.012 (0.000-0.034) ng/mL NT-Pro-B Natriuret Pep pg/mL Total Protein (6.3-8.2) g/dL Albumin (3.5-5.0) g/dL Urine Color Urine Appearance (Clear) Urine pH (5.0-8.0) Ur Specific [place] (1.001-1.035) Urine Protein (Negative) Urine Glucose (UA) (Negative) Urine Ketones (Negative) Urine Blood (Negative) Urine Nitrite (Negative) Urine Bilirubin (Negative) Urine Urobilinogen (<2.0) mg/dL Ur Leukocyte Esterase (Negative) Urine RBC (0-5) /hpf Urine WBC (0-5) /hpf Ur Squamous Epith Cells (0-4) /hpf Urine Mucus (None) /hpf Coronavirus (PCR) Not Detected (Not Detectd) 09/16/20 09/16/20 09/16/20 Range/Units 19:08 20:05 20:05 WBC 13.4 H (3.8-10.6) k/uL RBC 2.63 L (3.80-5.40) m/uL Hgb 10.6 L (11.4-16.0) gm/dL Hct 31.7 L (34.0-46.0) % MCV 120.6 H (80.0-100.0) fL MCH 40.4 H (25.0-35.0) pg MCHC 33.5 (31.0-37.0) g/dL RDW 19.9 H (11.5-15.5) % Plt Count 120 L (150-450) k/uL MPV 9.6 Neutrophils % (Manual) 57 % Band Neuts % (Manual) 1 % Lymphocytes % (Manual) 30 % Monocytes % (Manual) 10 % Eosinophils % (Manual) 1 % Metamyelocytes % 2 % Myelocytes % 1 % Neutrophils # (Manual) 7.70 (1.3-7.7) k/uL Lymphocytes # (Manual) 4.02 (1.0-4.8) k/uL Monocytes # (Manual) 1.34 H (0-1.0) k/uL Eosinophils # (Manual) 0.13 (0-0.7) k/uL Metamyelocytes # (Man) 0.27 H (0) k/uL Myelocytes # (Manual) 0.13 H (0) k/uL Nucleated RBCs 29 H (0-0) /100 WBC Manual Slide Review Performed Polychromasia Present Hypochromasia Moderate Anisocytosis Slight Macrocytosis Marked A Winston-Meckling Bodies Present Fragmented RBCs Present PT (9.0-12.0) sec INR (<1.2) APTT (22.0-30.0) sec D-Dimer (<0.60) mg/L FEU Sodium (137-145) mmol/L Potassium (3.5-5.1) mmol/L Chloride (98-107) mmol/L Carbon Dioxide (22-30) mmol/L Anion Gap mmol/L BUN (7-17) mg/dL Creatinine (0.52-1.04) mg/dL Est GFR (CKD-EPI)AfAm (>60 ml/min/1.73 sqM) Est GFR (CKD-EPI)NonAf (>60 ml/min/1.73 sqM) Glucose (74-99) mg/dL Lactic Ac Sepsis Rflx Y Plasma Lactic Acid Phani (0.7-2.0) mmol/L Calcium (8.4-10.2) mg/dL Magnesium (1.6-2.3) mg/dL Total Bilirubin (0.2-1.3) mg/dL AST (14-36) U/L ALT (4-34) U/L Alkaline Phosphatase (38-126) U/L Ammonia (<30) umol/L Troponin I (0.000-0.034) ng/mL NT-Pro-B Natriuret Pep 304 pg/mL Total Protein (6.3-8.2) g/dL Albumin (3.5-5.0) g/dL Urine Color Urine Appearance (Clear) Urine pH (5.0-8.0) Ur Specific [place] (1.001-1.035) Urine Protein (Negative) Urine Glucose (UA) (Negative) Urine Ketones (Negative) Urine Blood (Negative) Urine Nitrite (Negative) Urine Bilirubin (Negative) Urine Urobilinogen (<2.0) mg/dL Ur Leukocyte Esterase (Negative) Urine RBC (0-5) /hpf Urine WBC (0-5) /hpf Ur Squamous Epith Cells (0-4) /hpf Urine Mucus (None) /hpf Coronavirus (PCR) (Not Detectd) 09/16/20 Range/Units 22:15 WBC (3.8-10.6) k/uL RBC (3.80-5.40) m/uL Hgb (11.4-16.0) gm/dL Hct (34.0-46.0) % MCV (80.0-100.0) fL MCH (25.0-35.0) pg MCHC (31.0-37.0) g/dL RDW (11.5-15.5) % Plt Count (150-450) k/uL MPV Neutrophils % (Manual) % Band Neuts % (Manual) % Lymphocytes % (Manual) % Monocytes % (Manual) % Eosinophils % (Manual) % Metamyelocytes % % Myelocytes % % Neutrophils # (Manual) (1.3-7.7) k/uL Lymphocytes # (Manual) (1.0-4.8) k/uL Monocytes # (Manual) (0-1.0) k/uL Eosinophils # (Manual) (0-0.7) k/uL Metamyelocytes # (Man) (0) k/uL Myelocytes # (Manual) (0) k/uL Nucleated RBCs (0-0) /100 WBC Manual Slide Review Polychromasia Hypochromasia Anisocytosis Macrocytosis Winston-Meckling Bodies Fragmented RBCs PT (9.0-12.0) sec INR (<1.2) APTT (22.0-30.0) sec D-Dimer (<0.60) mg/L FEU Sodium (137-145) mmol/L Potassium (3.5-5.1) mmol/L Chloride (98-107) mmol/L Carbon Dioxide (22-30) mmol/L Anion Gap mmol/L BUN (7-17) mg/dL Creatinine (0.52-1.04) mg/dL Est GFR (CKD-EPI)AfAm (>60 ml/min/1.73 sqM) Est GFR (CKD-EPI)NonAf (>60 ml/min/1.73 sqM) Glucose (74-99) mg/dL Lactic Ac Sepsis Rflx Plasma Lactic Acid Phani 1.1 (0.7-2.0) mmol/L Calcium (8.4-10.2) mg/dL Magnesium (1.6-2.3) mg/dL Total Bilirubin (0.2-1.3) mg/dL AST (14-36) U/L ALT (4-34) U/L Alkaline Phosphatase (38-126) U/L Ammonia (<30) umol/L Troponin I (0.000-0.034) ng/mL NT-Pro-B Natriuret Pep pg/mL Total Protein (6.3-8.2) g/dL Albumin (3.5-5.0) g/dL Urine Color Urine Appearance (Clear) Urine pH (5.0-8.0) Ur Specific [place] (1.001-1.035) Urine Protein (Negative) Urine Glucose (UA) (Negative) Urine Ketones (Negative) Urine Blood (Negative) Urine Nitrite (Negative) Urine Bilirubin (Negative) Urine Urobilinogen (<2.0) mg/dL Ur Leukocyte Esterase (Negative) Urine RBC (0-5) /hpf Urine WBC (0-5) /hpf Ur Squamous Epith Cells (0-4) /hpf Urine Mucus (None) /hpf Coronavirus (PCR) (Not Detectd) - Radiology Data Radiology results: report reviewed (Chest x-ray: Elevated right hemidiaphragm could relate to paralysis. This appears unchanged compared to old computed tomography scan 08/18/2020. Normal heart.) Noncontrast head CT: Encephalomalacia on the left side without change compared to old exam. Increased density at the greater wing of the sphenoid bone that is consistent with a meningioma without change compared to old exam. CT angiography chest with IV contrast: No evidence of pulmonary embolism. Pulmonary interstitial infiltrates in nonspecific. Interstitial infiltrates are mostly new compared to the computed tomography scan of 08/18/2020. Extensive osteosclerosis that could relate to myelofibrosis. CT abdomen/pelvis with IV contrast: There is moderate abdominal ascites fluid that is increased compared to old exam. Cholelithiasis. Osteosclerosis in the skeleton suggestive of myelofibrosis. Possible decreased renal function. No renal obstruction. Gallbladder ultrasound: There is evidence of acute and chronic cholecystitis. No evidence of Disposition Clinical Impression: Generalized weakness, Confusion, Hyperbilirubinemia, Cholelithiasis Narrative: Possible pneumonia, possible cholecystitis Disposition: ADMITTED IP TO THIS HOSP Condition: Stable Is patient prescribed a controlled substance at d/c from ED?: No Referrals: Jorge Andrade DO [Primary Care Provider] - 1-2 days Time of Disposition: 22:35
[2020-09-16 19:07] LABS: Lactic Acid, Venous 2.2 mmol/L (0.7-2.0)
[2020-09-16 19:08] LABS: Albumin 3.2 g/dL (3.5-5.0); Calcium 9.9 mg/dL (8.4-10.2); Magnesium 2.5 mg/dL (1.6-2.3); Potassium 5.4 mmol/L (3.5-5.1); Total Bilirubin 10.2 mg/dL (0.2-1.3); Total Protein 6.3 g/dL (6.3-8.2)
--- NOTE | 2020-09-16 19:14 | XR ---
EXAMINATION TYPE: XR chest 1V portable DATE OF EXAM: 09/16/2020 COMPARISON: NONE HISTORY: Weakness TECHNIQUE: FINDINGS: There is some elevation of the right diaphragm. Heart size is normal. There are calcified g ranulomata at the pulmonary azucena. There is no heart failure. IMPRESSION: Elevated right diaphragm could relate to paralysis. This appears unchanged compared to ol d CT scan 08/18/2020. Normal heart.
[2020-09-16] MEDS ORDERED: SODIUM CHLORIDE 0.9% 1,000 ML IV ONE (19:28)
[2020-09-16 19:36] LABS: INR 1.5 (<1.2); Partial Thromboplastin Time 27.9 sec (22.0-30.0); Prothrombin Time 14.8 sec (9.0-12.0)
[2020-09-16 19:50] LABS: Appearance,Urine Cloudy (Clear); Bilirubin,Urine 3+ (Negative); Blood,Urine Trace (Negative); Color,Urine Dark Brown; Glucose,Urine (UA) Negative (Negative); Ketones,Urine Trace (Negative); Leukocyte Esterase,Urine Small (Negative); Mucus,Urine Many /hpf; Nitrite,Urine Negative (Negative); PH, Urine 5.5 (5.0-8.0); Protein,Urine 1+ (Negative); RBC,Urine 2 /hpf (0-5); Specific Gravity,Urine 1.023 (1.001-1.035); Squamous Epithelial Cell,Urine 1 /hpf (0-4); WBC,Urine 10 /hpf (0-5)
[2020-09-16 20:19] LABS: Anisocytosis Slight; HCT 31.7 % (34.0-46.0); HGB 10.6 gm/dL (11.4-16.0); Hypochromasia Moderate; MCH 40.4 pg (25.0-35.0); MCHC 33.5 g/dL (31.0-37.0); MCV 120.6 fL (80.0-100.0); Macrocytosis Marked; Mean Platelet Volume 9.6; Platelet Count 120 k/uL (150-450); RBC 2.63 m/uL (3.80-5.40); RDW 19.9 % (11.5-15.5)
--- NOTE | 2020-09-16 20:31 | CT ---
EXAMINATION TYPE: CT brain wo con DATE OF EXAM: 09/16/2020 COMPARISON: 09/25/2019 HISTORY: Altered mental status. History of cancer. CT DLP: 1099.4 mGycm Automated exposure control for dose reduction was used. There is left temporal craniotomy defect. There is hypodensity in the anterior left temporal lobe and also the posterior lateral left frontal lobe consistent with encephalomalacia. There is no midline s hift. There is no evidence of intracranial hemorrhage. There is a 2 cm area of increased density joey cent to the greater wing of the sphenoid bone on the left side appearance consistent with meningioma. IMPRESSION: Encephalomalacia on the left side as above without change compared to old exam. Increased density at the greater wing of the sphenoid bone that is consistent with a meningioma without change compared to old exam.
--- NOTE | 2020-09-16 20:55 | CT ---
EXAMINATION TYPE: CT chest angio for PE DATE OF EXAM: 09/16/2020 COMPARISON: None HISTORY: elevated d-dimer, bone ca CT DLP: 609.3 mGycm Automated exposure control for dose reduction was used. CONTRAST: Performed with IV Contrast, patient injected with 100 mL of Isovue 370. There are 3-D post processed images. There is some mild groundglass interstitial infiltrates in the lungs. There is no evidence of a pulmo nary mass. There is no pleural effusion. There is abdominal ascites. There is no pericardial effusion. Heart size is normal. There is no evidence of filling defect in the pulmonary arteries. There is no mediastinal adenopathy. There are no hilar masses. There is diffuse osteosclerosis in the bony thorax. IMPRESSION: No evidence of pulmonary embolism. Pulmonary interstitial infiltrates are nonspecific. Interstitial infiltrates are mostly new compared to the CT scan of 08/18/2020. Extensive osteosclerosis that could relate to myelofibrosis.
[2020-09-16 20:59] LABS: Band Neutrophils % 1 %; Metamyelocytes % 2 %; Myelocytes % 1 %; Neutrophils % (M) 57 %; Nucleated Red Blood Cells 29 /100 WBC (0-0); Total Cells Counted 200
[2020-09-16 21:00] LABS: Eosinophils # (M) 0.13 k/uL (0-0.7); Lymphocytes # (M) 4.02 k/uL (1.0-4.8); Metamyelocytes # (M) 0.27 k/uL (0); Monocytes # (M) 1.34 k/uL (0-1.0); Myelocytes # (M) 0.13 k/uL (0); Polychromasia Present; WBC 13.4 k/uL (3.8-10.6)
[2020-09-16 21:02] LABS: RBC Fragments Present
[2020-09-16 21:03] LABS: Howell-Jolly Bodies Present
--- NOTE | 2020-09-16 21:08 | CT ---
EXAMINATION TYPE: CT abdomen pelvis w con DATE OF EXAM: 09/16/2020 COMPARISON: 08/18/2020 HISTORY: abdominal pain, hx of bone ca CT DLP: 2429.5 mGycm Automated exposure control for dose reduction was used. CONTRAST: Performed with IV Contrast, patient injected with 100 mL of Isovue 370. Images obtained from the diaphragm to the floor the pelvis with IV contrast. There is moderate abdomi nal ascites. Liver is intact. Spleen measures 13 cm. Liver shows no focal defect. There is no evidenc e of pancreatic mass. The stomach is intact. There are calcified gallstones. There is no adrenal mass. Kidneys show satisfactory contrast opacification. There is no hydronephrosi s. There are right-sided renal parapelvic cysts. There is decreased excretion on the delayed images. There is no retroperitoneal adenopathy. Bladder distends smoothly. There is no inguinal hernia. There are scattered few sigmoid diverticula. There is no evidence of diverticulitis. There is no free air. Appendix is not seen. There is no sign of thickened appendix. There is diffuse osteosclerosis of the skeleton. There is a first-degree L5-S1 spondylolisthesis with bilateral L5 spondylolysis. IMPRESSION: There is moderate abdominal ascites fluid that is increased compared to old exam. Cholelithiasis. Osteosclerosis in the skeleton suggestive of myelofibrosis. Possible decreased renal function. No renal obstruction.
[2020-09-16] MEDS ORDERED: PIPERACILLIN-TAZOBACTAM 4.5 GM in SODIUM CHLORIDE 0.9% 100 ML IVPB STA (21:15)
[2020-09-16] MEDS ORDERED: PIPERACILLIN-TAZOBACTAM 3.375 GM in SODIUM CHLORIDE 0.9% 100 ML IVPB STA (21:46)
--- NOTE | 2020-09-16 22:13 | US ---
EXAMINATION TYPE: US gallbladder DATE OF EXAM: 09/16/2020 COMPARISON: CT CLINICAL HISTORY: Hyperbilirubinemia, gallstones. Patient stated has Breast CA and Bone CA; RUQ pain EXAM MEASUREMENTS: Liver Length: 18.3 cm Gallbladder Wall: 0.5 cm CBD: 0.7 cm Right Kidney: 10.7 x 5.5 x 5.7 cm Pancreas: hyperechoic with lobular borders Liver: enlarged as is greater than18.0cm Gallbladder: multiple lobular isoechoic contents mid lumen with sludge and with hyperechoic focus in fundus; abnormally thickened wall; fluid noted surrounding fundus (ascites is noted). Evidence for sonographic Singh's sign: yes CBD: may be normal for 6th decade Right Kidney: No hydronephrosis or masses seen Ascites noted in right lateral abdomen as patient was RLD on start of US exam. RLQ ascites pocket = 9 .0cm A/P. IMPRESSION: There is evidence of acute and chronic cholecystitis. No evidence of dilated intrahepatic bile ducts. Normal right kidney. Abdominal ascites.
[2020-09-16] MEDS: SODIUM CHLORIDE 0.9% 1,000 ML IV SCH (23:10)
[2020-09-17 08:59] LABS: Albumin 2.7 g/dL (3.5-5.0); Calcium 9.2 mg/dL (8.4-10.2); Potassium 4.6 mmol/L (3.5-5.1); Total Bilirubin 9.6 mg/dL (0.2-1.3); Total Protein 5.5 g/dL (6.3-8.2)
[2020-09-17] MEDS: lisinopriL 20 MG TAB PO SCH (09:03)
[2020-09-17 09:48] LABS: Anisocytosis Moderate; HCT 32.5 % (34.0-46.0); HGB 9.8 gm/dL (11.4-16.0); Hypochromasia Marked; MCH 38.1 pg (25.0-35.0); MCHC 30.3 g/dL (31.0-37.0); Macrocytosis Marked; Platelet Count 113 k/uL (150-450); RBC 2.58 m/uL (3.80-5.40); RDW 20.5 % (11.5-15.5)
[2020-09-17 09:55] LABS: MCV 125.9 fL (80.0-100.0)
--- NOTE | 2020-09-17 10:17 | P.GSCN ---
History of Present Illness Consult date: 09/17/20 Reason for Consult: Cholecystitis History of present illness: 65-year-old female known to our service. Patient had a lymph node biopsy excised last year showing metastatic cancer thought to be lobular breast primary. Patient has had evidence of skeletal metastasis. She came to the ER with her family. She is apparently very weak. She's been treated with oral chemotherapy. The patient was confused. No other significant focused complai nts. Patient was found to have a significant elevation of her bilirubin. She had a CAT scan abdomen and pelvis and ultrasound. She has ascites that is increased when compared to the CAT scan from August 18. She has some gallbladder wall thickening and gallstones. No biliary dilation was appreciated. We were consulted for gallbladder evaluation. GI was also consulted. Review of Systems The patient denies any acute changes in vision or hearing, no dysphagia or odyn ophagia, no chest pain or shortness of breath, no dysuria or hematuria, no headache, no runny nose, no rectal bleeding or melena, no unexplained weight loss Past Medical History Past Medical History: Cancer, Hyperlipidemia, Hypertension, Respiratory Disorder Additional Past Medical History / Comment(s): Chronic low back pain, degene rative disc disease, benign neoplasm of cerebral meninges. hx asthma last few months more sob unable to get into pulmonary dr until saturday.no inhalers usedor o2 History of Any Multi-Drug Resistant Organisms: None Reported Past Surgical History: Breast Surgery, Section, Joint Replacement Additional Past Surgical History / Comment(s): brain surgery. BILAT TKA. LT SHOULDER SX. LT CATARACT REMOVED WITH LENS IMPLANT Past Anesthesia/Blood Transfusion Reactions: No Reported Reaction Past Psychological History: No Psychological Hx Reported Smoking Status: Former smoker Past Alcohol Use History: None Reported Additional Past Alcohol Use History / Comment(s): QUIT SMOKING AGE 29 Past Drug Use History: None Reported - Past Family History Sister(s) Family Medical History: Cancer Medications and Allergies Home Medications Medication Instructions Recorded Confirmed Type Oxybutynin Chloride [Oxybutynin 10 mg PO DAILY@0900 01/22/17 09/16/20 History Chloride ER] lisinopriL [Prinivil] 20 mg PO DAILY@0900 01/22/17 09/16/20 History Cholecalciferol (Vitamin D3) 125 mcg PO DAILY 09/17/19 09/16/20 History [Vitamin D3] Cyanocobalamin (Vitamin B-12) 1,000 mcg PO DAILY 09/17/19 09/16/20 History [Vitamin B-12] Gabapentin [Neurontin] 200 mg PO HS@199909/17/19 09/16/20 History Multivitamins, Thera [Multivitamin 1 tab PO DAILY 09/17/19 09/16/20 History (formulary)] Calcium Carbonate [Calcium] 600 mg PO DAILY 09/25/19 09/16/20 History Abemaciclib [Verzenio] 50 mg PO BID@1000,2100 09/16/20 09/16/20 History Calcium Carbonate [Tums] 500 mg PO QID 09/16/20 09/16/20 History Ferrous Sulfate [Feosol] 325 mg PO DAILY 09/16/20 09/16/20 History Letrozole [Femara] 2.5 mg PO HS@199909/16/20 09/16/20 History Ondansetron [Zofran] 4 mg PO Q6H PRN 09/16/20 09/16/20 History Allergies Allergy/AdvReac Type Severity Reaction Status Date / Time No Known Allergies Allergy Verified 09/16/20 19:13 Surgical - Exam Vital Signs Temp Pulse Resp BP Pulse Ox 99.9 F H 89 20 113/58 93 L 09/16/20 17:47 09/16/20 17:47 09/16/20 17:47 09/16/20 17:47 09/16/20 17:47 Physical exam: General: Well-developed, well-nourished HEENT: Normocephalic, sclerae nonicteric Abdomen: Nontender, mildly distended Extremities: No edema Neuro: Alert and oriented Results - Labs 09/17/20 08:06 09/17/20 08:06 Abnormal Lab Results - Last 24 Hours (Table) 09/16/20 09/16/20 09/16/20 Range/Units 18:01 18:45 18:45 WBC (3.8-10.6) k/uL RBC (3.80-5.40) m/uL Hgb (11.4-16.0) gm/dL Hct (34.0-46.0) % MCV (80.0-100.0) fL MCH (25.0-35.0) pg MCHC (31.0-37.0) g/dL RDW (11.5-15.5) % Plt Count (150-450) k/uL Monocytes # (Manual) (0-1.0) k/uL Metamyelocytes # (Man) (0) k/uL Myelocytes # (Manual) (0) k/uL Nucleated RBCs (0-0) /100 WBC Macrocytosis PT 14.8 H (9.0-12.0) sec INR 1.5 H (<1.2) D-Dimer 3.47 H (<0.60) mg/L FEU Sodium 131 L (137-145) mmol/L Potassium 5.4 H (3.5-5.1) mmol/L Carbon Dioxide 19 L (22-30) mmol/L Glucose 107 H (74-99) mg/dL Plasma Lactic Acid Phani (0.7-2.0) mmol/L Magnesium 2.5 H (1.6-2.3) mg/dL Total Bilirubin 10.2 H (0.2-1.3) mg/dL AST 205 H (14-36) U/L ALT 43 H (4-34) U/L Ammonia (<30) umol/L Total Protein (6.3-8.2) g/dL Albumin 3.2 L (3.5-5.0) g/dL Urine Appearance Cloudy H (Clear) Urine Protein 1+ H (Negative) Urine Ketones Trace H (Negative) Urine Blood Trace H (Negative) Urine Bilirubin 3+ H (Negative) Ur Leukocyte Esterase Small H (Negative) Urine WBC 10 H (0-5) /hpf Urine Mucus Many H (None) /hpf 09/16/20 09/16/20 09/17/20 Range/Units 18:45 20:05 08:06 WBC 13.4 H 13.1 H (3.8-10.6) k/uL RBC 2.63 L 2.58 L (3.80-5.40) m/uL Hgb 10.6 L 9.8 L (11.4-16.0) gm/dL Hct 31.7 L 32.5 L (34.0-46.0) % MCV 120.6 H 125.9 H D (80.0-100.0) fL MCH 40.4 H 38.1 H (25.0-35.0) pg MCHC 30.3 L (31.0-37.0) g/dL RDW 19.9 H 20.5 H (11.5-15.5) % Plt Count 120 L 113 L (150-450) k/uL Monocytes # (Manual) 1.34 H (0-1.0) k/uL Metamyelocytes # (Man) 0.27 H (0) k/uL Myelocytes # (Manual) 0.13 H (0) k/uL Nucleated RBCs 29 H (0-0) /100 WBC Macrocytosis Marked A Marked A PT (9.0-12.0) sec INR (<1.2) D-Dimer (<0.60) mg/L FEU Sodium (137-145) mmol/L Potassium (3.5-5.1) mmol/L Carbon Dioxide (22-30) mmol/L Glucose (74-99) mg/dL Plasma Lactic Acid Phani 2.2 H* (0.7-2.0) mmol/L Magnesium (1.6-2.3) mg/dL Total Bilirubin (0.2-1.3) mg/dL AST (14-36) U/L ALT (4-34) U/L Ammonia 37 H (<30) umol/L Total Protein (6.3-8.2) g/dL Albumin (3.5-5.0) g/dL Urine Appearance (Clear) Urine Protein (Negative) Urine Ketones (Negative) Urine Blood (Negative) Urine Bilirubin (Negative) Ur Leukocyte Esterase (Negative) Urine WBC (0-5) /hpf Urine Mucus (None) /hpf 09/17/20 Range/Units 08:06 WBC (3.8-10.6) k/uL RBC (3.80-5.40) m/uL Hgb (11.4-16.0) gm/dL Hct (34.0-46.0) % MCV (80.0-100.0) fL MCH (25.0-35.0) pg MCHC (31.0-37.0) g/dL RDW (11.5-15.5) % Plt Count (150-450) k/uL Monocytes # (Manual) (0-1.0) k/uL Metamyelocytes # (Man) (0) k/uL Myelocytes # (Manual) (0) k/uL Nucleated RBCs (0-0) /100 WBC Macrocytosis PT (9.0-12.0) sec INR (<1.2) D-Dimer (<0.60) mg/L FEU Sodium 133 L (137-145) mmol/L Potassium (3.5-5.1) mmol/L Carbon Dioxide 21 L (22-30) mmol/L Glucose 112 H (74-99) mg/dL Plasma Lactic Acid Phani (0.7-2.0) mmol/L Magnesium (1.6-2.3) mg/dL Total Bilirubin 9.6 H (0.2-1.3) mg/dL AST 180 H (14-36) U/L ALT 43 H (4-34) U/L Ammonia (<30) umol/L Total Protein 5.5 L (6.3-8.2) g/dL Albumin 2.7 L (3.5-5.0) g/dL Urine Appearance (Clear) Urine Protein (Negative) Urine Ketones (Negative) Urine Blood (Negative) Urine Bilirubin (Negative) Ur Leukocyte Esterase (Negative) Urine WBC (0-5) /hpf Urine Mucus (None) /hpf Diabetes panel 09/16/20 09/17/20 Range/Units 18:45 08:06 Sodium 131 L 133 L (137-145) mmol/L Potassium 5.4 H 4.6 (3.5-5.1) mmol/L Chloride 104 107 (98-107) mmol/L Carbon Dioxide 19 L 21 L (22-30) mmol/L BUN 16 15 (7-17) mg/dL Creatinine 0.93 0.84 (0.52-1.04) mg/dL Glucose 107 H 112 H (74-99) mg/dL Calcium 9.9 9.2 (8.4-10.2) mg/dL AST 205 H 180 H (14-36) U/L ALT 43 H 43 H (4-34) U/L Alkaline Phosphatase 117 98 (38-126) U/L Total Protein 6.3 5.5 L (6.3-8.2) g/dL Albumin 3.2 L 2.7 L (3.5-5.0) g/dL Calcium panel 09/16/20 09/17/20 Range/Units 18:45 08:06 Calcium 9.9 9.2 (8.4-10.2) mg/dL Albumin 3.2 L 2.7 L (3.5-5.0) g/dL Pituitary panel 09/16/20 09/17/20 Range/Units 18:45 08:06 Sodium 131 L 133 L (137-145) mmol/L Potassium 5.4 H 4.6 (3.5-5.1) mmol/L Chloride 104 107 (98-107) mmol/L Carbon Dioxide 19 L 21 L (22-30) mmol/L BUN 16 15 (7-17) mg/dL Creatinine 0.93 0.84 (0.52-1.04) mg/dL Glucose 107 H 112 H (74-99) mg/dL Calcium 9.9 9.2 (8.4-10.2) mg/dL Adrenal panel 09/16/20 09/17/20 Range/Units 18:45 08:06 Sodium 131 L 133 L (137-145) mmol/L Potassium 5.4 H 4.6 (3.5-5.1) mmol/L Chloride 104 107 (98-107) mmol/L Carbon Dioxide 19 L 21 L (22-30) mmol/L BUN 16 15 (7-17) mg/dL Creatinine 0.93 0.84 (0.52-1.04) mg/dL Glucose 107 H 112 H (74-99) mg/dL Calcium 9.9 9.2 (8.4-10.2) mg/dL Total Bilirubin 10.2 H 9.6 H (0.2-1.3) mg/dL AST 205 H 180 H (14-36) U/L ALT 43 H 43 H (4-34) U/L Alkaline Phosphatase 117 98 (38-126) U/L Total Protein 6.3 5.5 L (6.3-8.2) g/dL Albumin 3.2 L 2.7 L (3.5-5.0) g/dL Assessment and Plan (1) Cholecystitis Narrative/Plan: Patient with presentation to ER for confusion and weakness. Patient with known metastatic breast cancer. Thickening of gallbladder wall likely related to the ascites. Ascites could be malignant in nature. Not sure if diagnostic p aracentesis would be beneficial given the known metastatic process. No surgical intervention planned. Doubt cholangitis however await GI evaluation. Recommend oncology evaluation to discuss extended care. Current Visit: Yes Status: Acute Code(s): K81.9 - CHOLECYSTITIS, UNSPECIFIED SNOMED Code(s): 98756593
[2020-09-17 11:41] LABS: Band Neutrophils % 1 %; Metamyelocytes % 2 %; Myelocytes % 3 %; Neutrophils % (M) 55 %; Nucleated Red Blood Cells 31 /100 WBC (0-0); Total Cells Counted 104
[2020-09-17 11:42] LABS: Polychromasia Present
[2020-09-17] MEDS: CALCIUM CARBONATE 500 MG CHEWABLE PO SCH ×3 (13:31→20:50)
[2020-09-17] MEDS: CYANOCOBALAMIN 500 MCG TAB PO SCH (13:31)
[2020-09-17] MEDS: SODIUM CHLORIDE 0.9% 1,000 ML IV SCH (13:32)
[2020-09-17] MEDS: OXYBUTYNIN 10 MG TAB.ER.24 PO SCH (14:00)
[2020-09-17 14:28] LABS: Reticulocyte % 6.5 % (0.5-2.0)
--- NOTE | 2020-09-17 17:42 | P.HPIM ---
History of Present Illness H&P Date: 09/17/20 Chief Complaint: Increasing confusion History of presenting complaint: This is a 65-year-old patient who follows with Dr. Andrade. Oncologist Dr. De La Paz. Patient had presented to the ER with her son. He reported that the patient has been feeling weak for several days. Has known metastatic breast cancer with bone metastasis and is currently being treated with oral chemotherapy. Patient has been becoming increasingly confused recently. Patient has been becoming unsteady. Patient does live alone. Has a slight cough. Has chronic unchanged dyspnea. Patient slow to answer questions. Denies any headache or vision changes. No chest pain. Decreased appetite. No fever no chills. Review of systems: GEN.: Tired, decreased appetite EYES: None HEENT: None NECK: None RESPIRATORY: Chronic shortness of breath CARDIOVASCULAR: None GASTROINTESTINAL: None GENITOURINARY: None MUSCULOSKELETAL: None LYMPHATICS: None HEMATOLOGICAL: None PSYCHIATRY: Forgetful NEUROLOGICAL: None, uses a walker Past medical history to include: Metastatic breast cancer with metastases to the bone on oral chemotherapy, hypertension, hyperlipidemia, DJD, Social history: Remote history of smoking. No alcohol. Lives alone. Family history: Cancer Physical examination: VITAL SIGNS: 98.3, 92, 18, 96 x 61, 98% on 2 L GENERAL: BMI 47.2, laying in bed, tired slightly lethargic but awake. EYES: Pupils equal. Conjunctiva normal. HEENT: External appearance of nose and ears normal, oral cavity grossly normal. NECK: JVD not raised; masses not palpable. HEART: First and second heart sounds are normal; no edema. LUNGS: Respiratory rate increased decreased breath sounds. ABDOMEN: Soft, nontender, liver spleen not palpable, no masses palpable. PSYCH: Patient knows that she is in the hospital. Cannot give the name. Could not tell the month of the year MUSCULAR skeletal: Evidence of OA NEUROLOGICAL: Cranial nerves grossly intact; no facial asymmetry, power and sensation grossly intact. LYMPHATICS: No lymph nodes palpable in the axilla and neck INVESTIGATIONS, reviewed in the clinical context: WBC 10 hemoglobin 9.8 MCV 125 platelets 113 potassium 4.6 creatinine 0.84 Total bilirubin 9.6 AST 18T ALT 43 alkaline phosphatase 98 albumin 2.7 Admission labs: Potassium 5.4 lactic acid 2.2. Total bilirubin 10.2 AST 205 ALT 43 UA positive for small leukoesterase, 10 WBC COVID 19 negative EKG tracing personally reviewed by me-normal sinus rhythm, nonspecific ST segment changes Gallbladder ultrasound: per lobe liver eyesight chronic contents with human with sludge and with hyperechoic focus in the fundus abnormally thickened wall fluid noted surrounding fundus. CT abdomen fundus: Moderate abdominal ascites. Gallstones. Chest CTA: Negative for PE. New pulmonary interstitial infiltrates CT brain: Encephalomyelitis year no midline shift. Chest x-ray film personally reviewed by me-elevated right diaphragm Assessment and plan: -Acute metabolic encephalopathy Patient presents with altered mental status, lethargic last few days. No fever no chills. Patient has encephalomalacia on the computed tomography scan. Need to rule out metastatic disease via MRI of the brain with and without contrast.. -Metastatic breast cancer with metastatic systems the bone On oral chemotherapy. Consult oncology -Morbid obesity BMI 47.2 -Chronic shortness of breath. Computed tomography scan of the chest showing evidence of fibrosis. Clinically does not have any evidence of acute infection. This could be fibrosis from chemotherapy or malignancy. Consult pulmonary. High resolution CT chest. 2-D echo -Thrombocytopenia, likely secondary to underlying malignancy and/or chemotherapy Follow CBC -Essential hypertension Prinivil -Peripheral neuropathy On Neurontin -Vitamin B-12 deficiency B12 supplement -Chronic urinary stress incontinence On oxybutynin -Possible acute on chronic cholecystitis Follow with surgery. IV cefepime. MRI of the brain with and without contrast. High resolution CT chest. IV fluids. Procalcitonin. Consultation to oncology and pulmonary. General surgery Past Medical History Past Medical History: Cancer, Hyperlipidemia, Hypertension, Respiratory Disorder Additional Past Medical History / Comment(s): Chronic low back pain, degenerative disc disease, benign neoplasm of cerebral meninges. hx asthma last few months more sob unable to get into pulmonary dr until saturday.no inhalers usedor o2 History of Any Multi-Drug Resistant Organisms: None Reported Past Surgical History: Breast Surgery, Section, Joint Replacement Additional Past Surgical History / Comment(s): brain surgery. BILAT TKA. LT SHOULDER SX. LT CATARACT REMOVED WITH LENS IMPLANT Past Anesthesia/Blood Transfusion Reactions: No Reported Reaction Past Psychological History: No Psychological Hx Reported Smoking Status: Former smoker Past Alcohol Use History: None Reported Additional Past Alcohol Use History / Comment(s): QUIT SMOKING AGE 29 Past Drug Use History: None Reported - Past Family History Sister(s) Family Medical History: Cancer Medications and Allergies Home Medications Medication Instructions Recorded Confirmed Type Oxybutynin Chloride [Oxybutynin 10 mg PO DAILY@89901/22/17 09/16/20 History Chloride ER] lisinopriL [Prinivil] 20 mg PO DAILY@0900 01/22/17 09/16/20 History Cholecalciferol (Vitamin D3) 125 mcg PO DAILY 09/17/19 09/16/20 History [Vitamin D3] Cyanocobalamin (Vitamin B-12) 1,000 mcg PO DAILY 09/17/19 09/16/20 History [Vitamin B-12] Gabapentin [Neurontin] 200 mg PO HS@199909/17/19 09/16/20 History Multivitamins, Thera [Multivitamin 1 tab PO DAILY 09/17/19 09/16/20 History (formulary)] Calcium Carbonate [Calcium] 600 mg PO DAILY 09/25/19 09/16/20 History Abemaciclib [Verzenio] 50 mg PO BID@1000,2100 09/16/20 09/16/20 History Calcium Carbonate [Tums] 500 mg PO QID 09/16/20 09/16/20 History Ferrous Sulfate [Feosol] 325 mg PO DAILY 09/16/20 09/16/20 History Letrozole [Femara] 2.5 mg PO HS@199909/16/20 09/16/20 History Ondansetron [Zofran] 4 mg PO Q6H PRN 09/16/20 09/16/20 History Allergies Allergy/AdvReac Type Severity Reaction Status Date / Time No Known Allergies Allergy Verified 09/16/20 19:13 Physical Exam Vitals: Vital Signs Temp Pulse Pulse Pulse Resp BP BP 09/17/20 06:53 98.3 F 92 18 96/61 09/17/20 02:00 98.6 F 95 16 96/57 09/17/20 00:10 98.0 F 91 16 112/68 09/16/20 23:16 98.4 F 93 18 117/45 09/16/20 21:50 98.2 F 95 18 152/70 09/16/20 20:31 98 18 126/69 09/16/20 19:14 98.2 F 85 16 109/45 09/16/20 18:04 92 09/16/20 17:47 99.9 F H 89 20 113/58 Pulse Ox 09/17/20 06:53 98 09/17/20 02:00 95 09/17/20 00:10 97 09/16/20 23:16 96 09/16/20 21:50 95 09/16/20 20:31 97 09/16/20 19:14 98 09/16/20 18:04 09/16/20 17:47 93 L Intake and Output 09/16/20 09/17/20 09/17/20 22:59 06:59 14:59 Other: Voiding Method Bedside Commode Bedside Commode # Voids 2 Weight 113.398 kg 113.398 kg 113.398 kg Results CBC & Chem 7: 09/17/20 08:06 09/17/20 08:06 Labs: Abnormal Lab Results - Last 24 Hours (Table) 09/16/20 09/16/20 09/16/20 Range/Units 18:01 18:45 18:45 WBC (3.8-10.6) k/uL RBC (3.80-5.40) m/uL Hgb (11.4-16.0) gm/dL Hct (34.0-46.0) % MCV (80.0-100.0) fL MCH (25.0-35.0) pg MCHC (31.0-37.0) g/dL RDW (11.5-15.5) % Plt Count (150-450) k/uL Monocytes # (Manual) (0-1.0) k/uL Metamyelocytes # (Man) (0) k/uL Myelocytes # (Manual) (0) k/uL Nucleated RBCs (0-0) /100 WBC Macrocytosis PT 14.8 H (9.0-12.0) sec INR 1.5 H (<1.2) D-Dimer 3.47 H (<0.60) mg/L FEU Sodium 131 L (137-145) mmol/L Potassium 5.4 H (3.5-5.1) mmol/L Carbon Dioxide 19 L (22-30) mmol/L Glucose 107 H (74-99) mg/dL Plasma Lactic Acid Phani (0.7-2.0) mmol/L Magnesium 2.5 H (1.6-2.3) mg/dL Total Bilirubin 10.2 H (0.2-1.3) mg/dL AST 205 H (14-36) U/L ALT 43 H (4-34) U/L Ammonia (<30) umol/L Total Protein (6.3-8.2) g/dL Albumin 3.2 L (3.5-5.0) g/dL Urine Appearance Cloudy H (Clear) Urine Protein 1+ H (Negative) Urine Ketones Trace H (Negative) Urine Blood Trace H (Negative) Urine Bilirubin 3+ H (Negative) Ur Leukocyte Esterase Small H (Negative) Urine WBC 10 H (0-5) /hpf Urine Mucus Many H (None) /hpf 09/16/20 09/16/20 09/17/20 Range/Units 18:45 20:05 08:06 WBC 13.4 H (3.8-10.6) k/uL RBC 2.63 L 2.58 L (3.80-5.40) m/uL Hgb 10.6 L 9.8 L (11.4-16.0) gm/dL Hct 31.7 L 32.5 L (34.0-46.0) % MCV 120.6 H 125.9 H D (80.0-100.0) fL MCH 40.4 H 38.1 H (25.0-35.0) pg MCHC 30.3 L (31.0-37.0) g/dL RDW 19.9 H 20.5 H (11.5-15.5) % Plt Count 120 L 113 L (150-450) k/uL Monocytes # (Manual) 1.34 H 1.10 H (0-1.0) k/uL Metamyelocytes # (Man) 0.27 H 0.20 H (0) k/uL Myelocytes # (Manual) 0.13 H 0.30 H (0) k/uL Nucleated RBCs 29 H 31 H (0-0) /100 WBC Macrocytosis Marked A Marked A PT (9.0-12.0) sec INR (<1.2) D-Dimer (<0.60) mg/L FEU Sodium (137-145) mmol/L Potassium (3.5-5.1) mmol/L Carbon Dioxide (22-30) mmol/L Glucose (74-99) mg/dL Plasma Lactic Acid Phani 2.2 H* (0.7-2.0) mmol/L Magnesium (1.6-2.3) mg/dL Total Bilirubin (0.2-1.3) mg/dL AST (14-36) U/L ALT (4-34) U/L Ammonia 37 H (<30) umol/L Total Protein (6.3-8.2) g/dL Albumin (3.5-5.0) g/dL Urine Appearance (Clear) Urine Protein (Negative) Urine Ketones (Negative) Urine Blood (Negative) Urine Bilirubin (Negative) Ur Leukocyte Esterase (Negative) Urine WBC (0-5) /hpf Urine Mucus (None) /hpf 09/17/20 Range/Units 08:06 WBC (3.8-10.6) k/uL RBC (3.80-5.40) m/uL Hgb (11.4-16.0) gm/dL Hct (34.0-46.0) % MCV (80.0-100.0) fL MCH (25.0-35.0) pg MCHC (31.0-37.0) g/dL RDW (11.5-15.5) % Plt Count (150-450) k/uL Monocytes # (Manual) (0-1.0) k/uL Metamyelocytes # (Man) (0) k/uL Myelocytes # (Manual) (0) k/uL Nucleated RBCs (0-0) /100 WBC Macrocytosis PT (9.0-12.0) sec INR (<1.2) D-Dimer (<0.60) mg/L FEU Sodium 133 L (137-145) mmol/L Potassium (3.5-5.1) mmol/L Carbon Dioxide 21 L (22-30) mmol/L Glucose 112 H (74-99) mg/dL Plasma Lactic Acid Phani (0.7-2.0) mmol/L Magnesium (1.6-2.3) mg/dL Total Bilirubin 9.6 H (0.2-1.3) mg/dL AST 180 H (14-36) U/L ALT 43 H (4-34) U/L Ammonia (<30) umol/L Total Protein 5.5 L (6.3-8.2) g/dL Albumin 2.7 L (3.5-5.0) g/dL Urine Appearance (Clear) Urine Protein (Negative) Urine Ketones (Negative) Urine Blood (Negative) Urine Bilirubin (Negative) Ur Leukocyte Esterase (Negative) Urine WBC (0-5) /hpf Urine Mucus (None) /hpf Thrombosis Risk Factor Assmnt - Choose All That Apply Each Risk Factor Represents 2 Points: Age 61-74 years, Arthroscopic surgery, Malignancy Thrombosis Risk Factor Assessment Total Risk Factor Score: 6 Thrombosis Risk Factor Assessment Level: High Risk
[2020-09-17] MEDS: ENOXAPARIN 40 MG/0.4 ML SYRINGE SQ SCH (18:06)
[2020-09-17 18:37] LABS: Appearance,Urine Clear (Clear); Bilirubin,Urine 2+ (Negative); Blood,Urine Negative (Negative); Color,Urine Dark Orange; Glucose,Urine (UA) Negative (Negative); Ketones,Urine Trace (Negative); Leukocyte Esterase,Urine Trace (Negative); Mucus,Urine Few /hpf; Nitrite,Urine Negative (Negative); PH, Urine 5.5 (5.0-8.0); Protein,Urine Trace (Negative); RBC,Urine 1 /hpf (0-5); Specific Gravity,Urine 1.039 (1.001-1.035); Squamous Epithelial Cell,Urine 1 /hpf (0-4); WBC,Urine 4 /hpf (0-5)
--- NOTE | 2020-09-17 19:36 | CONS ---
CONSULTATION DATE OF SERVICE: September 17, 2020. REQUESTING PHYSICIAN: Dr. Andrade and Dr. De La Paz. REASON FOR CONSULTATION: Jaundice. HISTORY OF PRESENT ILLNESS: The patient is a 65-year-old pleasant white female with metastatic breast cancer diagnosed about a year ago. She was brought to the emergency room by her family because of weakness and fatigue. In the ER, was noted to have elevated bilirubin up to 10.1, and hence we are consulted for further evaluation. The patient denies any abdominal pain. Reports no nausea, vomiting. She denies any history of chronic liver disease in the past. The patient states that she was diagnosed with metastatic breast cancer with bone metastasis about a year ago and since then has been on oral chemotherapy. She denies being on any new medications that were started recently. On review of her records, she was noted to have mild elevation of serum transaminases as well as bilirubin and was up to 1.9 a month ago. During this hospitalization, bilirubin is 10.2, AST 205, ALT 43, and alkaline phosphatase is 117. Repeat labs from today, T-bilirubin is 9.6 g/dL. In the ER, she did have a CT of the abdomen and pelvis done with contrast that showed new onset ascites, evidence of cholelithiasis. No evidence of biliary ductal dilation and liver appeared normal with no focal deficits. No evidence of pancreatic mass is seen. She also had ultrasound of the gallbladder done that showed liver appeared to be enlarged measuring 18 cm, multiple lobular isoechoic contents in the gallbladder suggestive of stones. Evidence of ascites. No biliary ductal dilation. PAST MEDICAL HISTORY: Significant for metastatic breast cancer diagnosed a year ago, presently on oral chemotherapy, history of hypertension, hyperlipidemia, chronic back pain, degenerative joint disease. PAST SURGICAL HISTORY: Bilateral TKA, breast surgery , left shoulder surgery, bilateral cataract surgeries. MEDICATIONS: Medications at home include vitamin B12, Neurontin, calcium carbonate, Verzenia, TUMS, Feosol, Femara, Zofran, vitamin D3, oxybutynin. ALLERGIES: None. SOCIAL HISTORY: No smoking. No alcohol use. FAMILY HISTORY: Unremarkable. REVIEW OF SYSTEMS: CARDIOPULMONARY: No chest pain or shortness of breath. GENITOURINARY: No dysuria. No hematuria. MUSCULOSKELETAL: Unremarkable. SKIN unremarkable. ENDOCRINE unremarkable. PSYCHIATRIC unremarkable. NEUROLOGICAL: Unremarkable. ENT/VISION: Unremarkable. CONSTITUTIONAL: Progressive fatigue, weakness, weight loss of 20 pounds. No fever, chills, night sweats. PHYSICAL EXAMINATION: She appears comfortable. No apparent distress. VITAL SIGNS: Stable. Blood pressure 96/61, pulse rate 92, temperature 98.3. HEENT examination unremarkable. Conjunctivae pink. Sclerae anicteric. Oral cavity no lesions. NECK: No JVD. No lymph node enlargement. CHEST was clear to auscultation. HEART: Regular rate and rhythm. ABDOMEN: Soft. Conjunctivae pink. Sclerae deeply icteric. Oral cavity no lesions. NECK: No JVD or lymph node enlargement. CHEST was clear to auscultation. HEART: Regular rate and rhythm. ABDOMEN: Soft. It was nontender. Nondistended. I was not able to appreciate any fluid in the abdomen. EXTREMITIES: No pedal edema. SKIN: No rashes. NEURO: She is alert and oriented x3. No focal deficits. LABORATORY DATA: WBC 13.4, hemoglobin 10.6, platelets 120. T-bilirubin 10.2, AST 205, ALT 45, alkaline phosphatase 117. INR is 1.5. IMPRESSION: 1. Jaundice with elevated serum transaminases and on review of her records, she was noted to have mild jaundice with a bilirubin of 1.9 about a month ago. During this hospitalization, T-bilirubin is up to 10.9 with mild elevation of serum transaminases. CT of the abdomen as well as ultrasound of the abdomen did not show any evidence of biliary ductal dilation. There was evidence of new onset ascites. The liver appeared intact with no lesion in the liver. At this time, possibility of extrahepatic biliary obstruction versus intrahepatic cholestasis secondary to chemotherapy or other medications cannot be excluded. 2. New onset ascites. 3. Metastatic breast cancer diagnosed about a year ago. 4. History of hypertension and hyperlipidemia. RECOMMENDATIONS: 1. Obtain hepatitis serologies for A, B and C. 2. Schedule the patient for MRCP to rule out any extrahepatic biliary obstruction. 3. We will schedule her for large-volume paracentesis for diagnostic and therapeutic purposes. 4. We will discuss with Dr. De La Paz. 5. No indication for an ERCP at the present time as the clinical picture is not consistent with any extrahepatic biliary obstruction. 6. We will follow with you closely. Thank you for this consultation. MMODL / IJN: [id number] /
[2020-09-17] MEDS ORDERED: LETROZOLE 2.5 MG TAB PO SCH (20:00)
[2020-09-17] MEDS: GABAPENTIN 100 MG CAP PO SCH (20:47)
[2020-09-17] MEDS: CEFEPIME 1 GM in SODIUM CHLORIDE 0.9% 50 ML IVPB SCH (20:48)
[2020-09-17] MEDS: ABEMACICLIB 50 MG PO SCH (20:57)
--- NOTE | 2020-09-17 22:19 | CT ---
EXAMINATION TYPE: CT chest wo con DATE OF EXAM: 09/17/2020 COMPARISON: 09/16/2020 HISTORY: possible pulmonary fibrosis CT DLP: 1484.7 mGycm Automated exposure control for dose reduction was used. Images were obtained from the thoracic inlet to the diaphragm without contrast. There is some mild groundglass interstitial infiltrate in the mid lung sidhu. There is no evidence o f a pulmonary mass. There is no pleural effusion. There is no pericardial effusion. There is abdomina l ascites. There is no mediastinal adenopathy. Heart size is fairly normal. There is mild subsegmental atelectas is right lung base. IMPRESSION: Mild pulmonary interstitial infiltrates appear improved compared to CT scan yesterday. Improvement mo re noticeable in the upper lobes. No suspicious pulmonary mass.
[2020-09-18] MEDS: SODIUM CHLORIDE 0.9% 1,000 ML IV SCH ×2 (01:39→12:42)
[2020-09-18 06:45] LABS: % Iron Saturation 69.52 (12.00-45.00); Iron 203 ug/dL (50-170); LDH 474 U/L (120-246); Total Iron Binding Capacity 292 ug/dL (228-460); Uric Acid 7.1 mg/dL (2.9-7.7)
--- NOTE | 2020-09-18 08:54 | P.PN ---
Subjective Progress Note Date: 09/18/20 Principal diagnosis: Cholecystitis Patient having mild abdominal pain. She describes it as being diffuse and nonlocalized. She is afebrile. Labs from today are pending. Yesterday's labs showed significant elevation of breast tumor marker. CT chest showed no evidence of metastasis. Objective - Vital Signs Vital signs: Vital Signs Temp 98.6 F 09/18/20 06:59 Pulse 90 09/18/20 06:59 Resp 17 09/18/20 06:59 BP 99/64 09/18/20 06:59 Pulse Ox 93 L 09/18/20 06:59 Intake & Output 09/17/20 09/18/20 09/18/20 18:59 06:59 18:59 Output Total 300 Balance -300 Weight 113.398 kg Output: Urine 300 Other: Voiding Method Bedside Commode Bedside Commode # Voids 2 - Exam Abdomen: Soft, mild distention, minimal diffuse tenderness - Labs CBC & Chem 7: 09/17/20 08:06 09/17/20 08:06 Labs: Abnormal Lab Results - Last 24 Hours (Table) 09/17/20 09/17/20 09/17/20 Range/Units 08:06 08:06 13:35 RBC 2.58 L (3.80-5.40) m/uL Hgb 9.8 L (11.4-16.0) gm/dL Hct 32.5 L (34.0-46.0) % MCV 125.9 H D (80.0-100.0) fL MCH 38.1 H (25.0-35.0) pg MCHC 30.3 L (31.0-37.0) g/dL RDW 20.5 H (11.5-15.5) % Plt Count 113 L (150-450) k/uL Monocytes # (Manual) 1.10 H (0-1.0) k/uL Metamyelocytes # (Man) 0.20 H (0) k/uL Myelocytes # (Manual) 0.30 H (0) k/uL Nucleated RBCs 31 H (0-0) /100 WBC Macrocytosis Marked A Retic Count 6.5 H (0.5-2.0) % Sodium 133 L (137-145) mmol/L Carbon Dioxide 21 L (22-30) mmol/L Glucose 112 H (74-99) mg/dL Iron (50-170) ug/dL % Saturation (12.00-45.00) Total Bilirubin 9.6 H (0.2-1.3) mg/dL AST 180 H (14-36) U/L ALT 43 H (4-34) U/L Lactate Dehydrogenase (120-246) U/L Total Protein 5.5 L (6.3-8.2) g/dL Albumin 2.7 L (3.5-5.0) g/dL CA 27-29 (0.0-38.5) U/mL Ur Specific [place] (1.001-1.035) Urine Protein (Negative) Urine Ketones (Negative) Urine Bilirubin (Negative) Ur Leukocyte Esterase (Negative) Urine Mucus (None) /hpf 09/17/20 09/17/20 09/17/20 Range/Units 13:35 13:35 18:10 RBC (3.80-5.40) m/uL Hgb (11.4-16.0) gm/dL Hct (34.0-46.0) % MCV (80.0-100.0) fL MCH (25.0-35.0) pg MCHC (31.0-37.0) g/dL RDW (11.5-15.5) % Plt Count (150-450) k/uL Monocytes # (Manual) (0-1.0) k/uL Metamyelocytes # (Man) (0) k/uL Myelocytes # (Manual) (0) k/uL Nucleated RBCs (0-0) /100 WBC Macrocytosis Retic Count (0.5-2.0) % Sodium (137-145) mmol/L Carbon Dioxide (22-30) mmol/L Glucose (74-99) mg/dL Iron 203 H (50-170) ug/dL % Saturation 69.52 H (12.00-45.00) Total Bilirubin (0.2-1.3) mg/dL AST (14-36) U/L ALT (4-34) U/L Lactate Dehydrogenase 474 H (120-246) U/L Total Protein (6.3-8.2) g/dL Albumin (3.5-5.0) g/dL CA 27-29 1854.5 H (0.0-38.5) U/mL Ur Specific [place] 1.039 H (1.001-1.035) Urine Protein Trace H (Negative) Urine Ketones Trace H (Negative) Urine Bilirubin 2+ H (Negative) Ur Leukocyte Esterase Trace H (Negative) Urine Mucus Few H (None) /hpf Microbiology - Last 24 Hours (Table) 09/16/20 18:45 Blood Culture - Preliminary Blood No Growth after 24 hours Assessment and Plan (1) Cholecystitis Narrative/Plan: Patient still has having mild abdominal discomfort. Still has fatigue. Await morning labs. Continue clear liquids. Await MRCP and paracentesis. Current Visit: Yes Status: Acute Code(s): K81.9 - CHOLECYSTITIS, UNSPECIFIED SNOMED Code(s): 15402844
[2020-09-18] MEDS: ENOXAPARIN 40 MG/0.4 ML SYRINGE SQ SCH (09:36)
[2020-09-18] MEDS: CALCIUM CARBONATE 500 MG CHEWABLE PO SCH ×4 (09:36→21:48)
[2020-09-18] MEDS: CHOLECALCIFEROL 25 MCG (1000 IU) TABLET PO SCH (09:36)
[2020-09-18] MEDS: FERROUS SULFATE 325 MG TAB PO SCH (09:36)
[2020-09-18] MEDS: lisinopriL 20 MG TAB PO SCH (09:37)
[2020-09-18] MEDS: CYANOCOBALAMIN 500 MCG TAB PO SCH (09:37)
[2020-09-18] MEDS: MULTIVITAMINS, THERA 1 EACH TAB PO SCH (09:37)
[2020-09-18] MEDS: OXYBUTYNIN 10 MG TAB.ER.24 PO SCH (09:38)
[2020-09-18] MEDS: CEFEPIME 1 GM in SODIUM CHLORIDE 0.9% 50 ML IVPB SCH ×2 (09:38→20:43)
[2020-09-18] MEDS: ABEMACICLIB 50 MG PO SCH (09:40)
--- NOTE | 2020-09-18 10:17 | PN ---
PROGRESS NOTE DATE OF SERVICE: 09/18/2020 INTERVAL HISTORY: Patient is a 65-year-old pleasant white female with history of metastatic breast cancer diagnosed a year ago with progression in the last month. The patient has been on oral chemotherapy and as per Dr. De La Paz, medications had changed about 3 or 4 weeks ago. She presented to the hospital with painless jaundice, bilirubin of 10 and new onset ascites. She denies any abdominal pain. She reports no nausea, vomiting. Last night she did have CT of the chest done that showed mild pulmonary interstitial infiltrates that appear to be improved from prior CT scan. She denies any fever or chills. No shortness of breath. On clear liquid diet, tolerating well. PHYSICAL EXAMINATION: GENERAL: She appears comfortable. VITAL SIGNS: Stable. Blood pressure is 98/59, temperature 98.4, pulse rate 92. HEENT: Examination unremarkable. Conjunctivae are pink. Sclerae are icteric. Oral cavity no lesions. NECK: No JVD or lymph node enlargement. CHEST: Clear to auscultation. HEART: Regular rate and rhythm. ABDOMEN: Soft, it was nontender, nondistended. Bowel sounds are positive. EXTREMITIES: No pedal edema. SKIN: No rashes. NEURO: Alert and oriented x3. No focal deficits. LABS: No labs available from today but yesterday bilirubin was 9.6, AST 180, ALT is 43, alkaline phosphatase is 98. CA-27-29 is 1854. IMPRESSION: 1. New onset jaundice with mild elevation of bilirubin that was initially detected a month ago. During this hospitalization bilirubin up to 10.2 g/dL. Mild elevation of serum transaminases noted. CT of the abdomen did not show any evidence of biliary ductal dilation. However, there was a moderate amount of ascites noted and liver appeared normal. Ultrasound of the abdomen also did not show any evidence of biliary ductal dilation. Patient was scheduled for an MRCP yesterday but the study could not be done because of obesity. At this time it is unclear if we are dealing with intrahepatic cholestasis secondary to medications from recent chemotherapy or if there is a component of obstructive jaundice from metastatic breast cancer. 2. New onset ascites, rule out malignant ascites. 3. Fatigue and weakness. 4. History of metastatic breast cancer diagnosed a year ago, being followed by Dr. De La Paz. RECOMMENDATIONS: 1. Discussed with Dr. De La Paz about the patient's condition. At this time, as per his recommendations, we will proceed with MRI of the liver/MRCP to assess for progression of her metastatic breast cancer and also to evaluate for biliary obstruction. We will plan on scheduling her for an open MRI tomorrow. 2. Continue with symptomatic and supportive care. 3. Monitor labs closely. 4. Will follow with you closely. Thank you for this consultation. HYUN / ALONDRA: [id number] /
[2020-09-18 10:21] LABS: Vitamin B12 >4000.0 pg/mL (200.0-944.0)
[2020-09-18 10:38] LABS: Cancer Antigen 153 1171.9 U/mL (0.0-32.3)
--- NOTE | 2020-09-18 11:09 | P.CNPUL ---
History of Present Illness Consult date: 09/18/20 Reason for consult: dyspnea History of present illness: Dyspnea I was asked to evaluate this patient for shortness of breath. She is a pleasant obese female patient with a BMI of 47 who is currently 65 years of age and she has metastatic breast cancer whereas been managed by combination of Femara and Verzenio on outpatient basis. Patient presented to the hospital because of generalized weakness which was gradually getting worse and for that reason she end up coming into the hospital. She was feeling weak and there was some limited confusion at the time of admission. She was becoming more unsteady and she also was having some chronic exertional dyspnea. No significant cough or sputum production. CAT scan of the brain that was done at time of admission showed increased density at the greater wing of the sphenoid bone consistent with meningioma without any acute abnormalities seen. Chest x-ray showed elevation of the right hemidiaphragm which is a chronic elevation and it was seen on previous he of the chest that was done on 09/08/2019. As such, the diaphragmatic elevation and possible dialysis is a chronic finding. During this current admission, the patient underwent a CT angiogram that was done on 09/16/2020 that showed no evidence of any pulmonary embolism and there was some nonspecific interstitial changes in the lung bases. Subsequently, the patient had another computed tomography scan of the chest on 09/17/2020, a noncontrast CAT scan that was done with a high resolution protocol and it showed no evidence of any interstitial fibrosis. There was some mild interstitial infiltrates improved compared to the earlier exam and improvement was noted mainly in the upper lobes. The active issue for now his obstructive jaundice. The patient has elevated bilirubin of 9.6. LFTs are abnormal. CEA 2729 and CA-15-3 are significantly elevated. Her white cell count is at 10. Pro-calcitonin level is at 0.47. Ultrasound of the gallbladder was done and it showed evidence of acute/chronic cholecystitis and there was no evidence of any dilated intrahepatic biliary ducts. Also, a CAT scan of the abdomen and pelvis was done that showed moderate ascites, no hydronephrosis, no abdominal lymphadenopathy, sigmoid diverticuli, liver was seen to be intact, no evidence of any pancreatic mass, no evidence of any gallstones. A PET scan that was done on 10/02/2019 showed metastatic disease involving the skeleton and bilateral legs are low and there was no evidence of any liver metastases. Review of Systems Constitutional: Reports fatigue, Reports weakness, Reports weight gain Eyes: denies as per HPI, denies blurred vision, denies bulging eye, denies decreased vision, denies diplopia, denies discharge, denies dry eye, denies irritation, denies itching, denies pain, denies photophobia, denies loss of peripheral vision, denies loss of vision, denies tunnel vision/blind spots Ears: deny: decreased hearing, ear discharge, earache, tinnitus Ears, nose, mouth and throat: Reports as per HPI Breasts: absent: as per HPI, change in shape, gynecomastia, masses, nipple dis charge, pain, skin changes, swelling Cardiovascular: Reports decreased exercise tolerance, Reports dyspnea on exertion Respiratory: Reports dyspnea Gastrointestinal: Reports as per HPI, Reports jaundice Genitourinary: Reports as per HPI Menstruation: Reports as per HPI Musculoskeletal: Reports as per HPI, Reports muscle weakness Musculoskeletal: absent: ankle pain, ankle stiffness, ankle swelling Integumentary: Reports as per HPI Neurological: Reports as per HPI, Reports balance difficulties, Reports change in mentation, Reports gait dysfunction Psychiatric: Reports as per HPI Endocrine: Reports as per HPI Hematologic/Lymphatic: Reports as per HPI Allergic/Immunologic: Reports as per HPI Past Medical History Past Medical History: Cancer, Hyperlipidemia, Hypertension, Respiratory Disorder Additional Past Medical History / Comment(s): Chronic low back pain, degenerative disc disease, benign neoplasm of cerebral meninges. hx asthma last few months more sob unable to get into pulmonary dr until saturday.no inhalers usedor o2 History of Any Multi-Drug Resistant Organisms: None Reported Past Surgical History: Breast Surgery, Section, Joint Replacement Additional Past Surgical History / Comment(s): brain surgery. BILAT TKA. LT SHOULDER SX. LT CATARACT REMOVED WITH LENS IMPLANT Past Anesthesia/Blood Transfusion Reactions: No Reported Reaction Past Psychological History: No Psychological Hx Reported Smoking Status: Former smoker Past Alcohol Use History: None Reported Additional Past Alcohol Use History / Comment(s): QUIT SMOKING AGE 29 Past Drug Use History: None Reported - Past Family History Sister(s) Family Medical History: Cancer Medications and Allergies Home Medications Medication Instructions Recorded Confirmed Type Oxybutynin Chloride [Oxybutynin 10 mg PO DAILY@0900 01/22/17 09/16/20 History Chloride ER] lisinopriL [Prinivil] 20 mg PO DAILY@0900 01/22/17 09/16/20 History Cholecalciferol (Vitamin D3) 125 mcg PO DAILY 09/17/19 09/16/20 History [Vitamin D3] Cyanocobalamin (Vitamin B-12) 1,000 mcg PO DAILY 09/17/19 09/16/20 History [Vitamin B-12] Gabapentin [Neurontin] 200 mg PO HS@199909/17/19 09/16/20 History Multivitamins, Thera [Multivitamin 1 tab PO DAILY 09/17/19 09/16/20 History (formulary)] Calcium Carbonate [Calcium] 600 mg PO DAILY 09/25/19 09/16/20 History Abemaciclib [Verzenio] 50 mg PO BID@1000,2100 09/16/20 09/16/20 History Calcium Carbonate [Tums] 500 mg PO QID 09/16/20 09/16/20 History Ferrous Sulfate [Feosol] 325 mg PO DAILY 09/16/20 09/16/20 History Letrozole [Femara] 2.5 mg PO HS@199909/16/20 09/16/20 History Ondansetron [Zofran] 4 mg PO Q6H PRN 09/16/20 09/16/20 History Allergies Allergy/AdvReac Type Severity Reaction Status Date / Time No Known Allergies Allergy Verified 09/16/20 19:13 Physical Exam Vitals: Vital Signs Temp Pulse Resp BP BP Pulse Ox 09/18/20 06:59 98.6 F 90 17 99/64 93 L 09/18/20 02:00 98.6 F 100 17 93/60 91 L 09/17/20 20:18 98.4 F 92 20 98/59 93 L 09/17/20 13:58 97.9 F 91 17 101/62 91 L Intake and Output 09/17/20 09/18/20 09/18/20 22:59 06:59 14:59 Output Total 300 Balance -300 Output: Urine 300 Other: Voiding Method Bedside Commode Bedside Commode # Voids 2 GENERAL: BMI 47.2, laying in bed, tired slightly lethargic but awake. EYES: Pupils equal. Conjunctiva normal. HEENT: External appearance of nose and ears normal, oral cavity grossly normal. NECK: JVD not raised; masses not palpable. HEART: First and second heart sounds are normal; no edema. LUNGS: Respiratory rate increased decreased breath sounds. ABDOMEN: Soft, nontender, liver spleen not palpable, no masses palpable. PSYCH: Patient knows that she is in the hospital. Cannot give the name. Could not tell the month of the year MUSCULAR skeletal: Evidence of OA NEUROLOGICAL: Cranial nerves grossly intact; no facial asymmetry, power and sensation grossly intact. LYMPHATICS: No lymph nodes palpable in the axilla and neck Results - Laboratory Findings CBC and BMP: 09/17/20 08:06 09/17/20 08:06 PT/INR, D-dimer PT 14.8 sec (9.0-12.0) H 09/16/20 18:45 INR 1.5 (<1.2) H 09/16/20 18:45 D-Dimer 3.47 mg/L FEU (<0.60) H 09/16/20 18:45 Abnormal lab findings: Abnormal Labs 09/16/20 09/16/20 09/16/20 18:01 18:45 18:45 WBC RBC Hgb Hct MCV MCH MCHC RDW Plt Count Monocytes # (Manual) Metamyelocytes # (Man) Myelocytes # (Manual) Nucleated RBCs Macrocytosis Retic Count PT 14.8 H INR 1.5 H D-Dimer 3.47 H Sodium 131 L Potassium 5.4 H Carbon Dioxide 19 L Glucose 107 H Plasma Lactic Acid Phani Magnesium 2.5 H Iron % Saturation Total Bilirubin 10.2 H AST 205 H ALT 43 H Ammonia Lactate Dehydrogenase Total Protein Albumin 3.2 L CA 15-3 Antigen CA 27-29 Vitamin B12 Procalcitonin Urine Appearance Cloudy H Ur Specific [place] Urine Protein 1+ H Urine Ketones Trace H Urine Blood Trace H Urine Bilirubin 3+ H Ur Leukocyte Esterase Small H Urine WBC 10 H Urine Mucus Many H 09/16/20 09/16/20 09/17/20 18:45 20:05 08:06 WBC 13.4 H RBC 2.63 L 2.58 L Hgb 10.6 L 9.8 L Hct 31.7 L 32.5 L MCV 120.6 H 125.9 H D MCH 40.4 H 38.1 H MCHC 30.3 L RDW 19.9 H 20.5 H Plt Count 120 L 113 L Monocytes # (Manual) 1.34 H 1.10 H Metamyelocytes # (Man) 0.27 H 0.20 H Myelocytes # (Manual) 0.13 H 0.30 H Nucleated RBCs 29 H 31 H Macrocytosis Marked A Marked A Retic Count PT INR D-Dimer Sodium Potassium Carbon Dioxide Glucose Plasma Lactic Acid Phani 2.2 H* Magnesium Iron % Saturation Total Bilirubin AST ALT Ammonia 37 H Lactate Dehydrogenase Total Protein Albumin CA 15-3 Antigen CA 27-29 Vitamin B12 Procalcitonin Urine Appearance Ur Specific [place] Urine Protein Urine Ketones Urine Blood Urine Bilirubin Ur Leukocyte Esterase Urine WBC Urine Mucus 09/17/20 09/17/20 09/17/20 08:06 13:35 13:35 WBC RBC Hgb Hct MCV MCH MCHC RDW Plt Count Monocytes # (Manual) Metamyelocytes # (Man) Myelocytes # (Manual) Nucleated RBCs Macrocytosis Retic Count 6.5 H PT INR D-Dimer Sodium 133 L Potassium Carbon Dioxide 21 L Glucose 112 H Plasma Lactic Acid Phani Magnesium Iron 203 H % Saturation 69.52 H Total Bilirubin 9.6 H AST 180 H ALT 43 H Ammonia Lactate Dehydrogenase 474 H Total Protein 5.5 L Albumin 2.7 L CA 15-3 Antigen 1171.9 H CA 27-29 Vitamin B12 >4000.0 H Procalcitonin Urine Appearance Ur Specific [place] Urine Protein Urine Ketones Urine Blood Urine Bilirubin Ur Leukocyte Esterase Urine WBC Urine Mucus 09/17/20 09/17/20 09/18/20 13:35 18:10 05:19 WBC RBC Hgb Hct MCV MCH MCHC RDW Plt Count Monocytes # (Manual) Metamyelocytes # (Man) Myelocytes # (Manual) Nucleated RBCs Macrocytosis Retic Count PT INR D-Dimer Sodium Potassium Carbon Dioxide Glucose Plasma Lactic Acid Phani Magnesium Iron % Saturation Total Bilirubin AST ALT Ammonia Lactate Dehydrogenase Total Protein Albumin CA 15-3 Antigen CA 27-29 1854.5 H Vitamin B12 Procalcitonin 0.47 H Urine Appearance Ur Specific [place] 1.039 H Urine Protein Trace H Urine Ketones Trace H Urine Blood Urine Bilirubin 2+ H Ur Leukocyte Esterase Trace H Urine WBC Urine Mucus Few H - Diagnostic Findings Chest x-ray: image reviewed CT scan - chest: image reviewed Assessment and Plan Plan: 1 metastatic breast cancer, currently undergoing treatment with medical oncology. Reviewed the series of imaging that was done including a PET scan 2019, CAT scan of the abdomen and pelvis, CT angiogram of the chest and HRCT of the chest that was done during this current admission. She has metastatic disease. Unclear if there is any liver involvement. The patient will buy does have some abdominal ascites and jaundice for now which could be essentially obstructive jaundice. Investigation is in progress 2 shortness of breath, multifactorial, related to her obstructive jaundice/[id number] amount of abdominal ascites, chronic right hemidiaphragmatic elevation, obesity with a BMI of 47.2. No evidence of any acute pneumonia at this point 3 acute on top of chronic cholecystitis based on ultrasound findings, not cu rrently on Maxipime 4 history of meningioma 5 altered mentation, rule out W[employer]ATOR metastases, not seen on the current CAT scan of the brain 6 chronic back pain hypertension 8 hyperlipidemia Plan Management of obstructive jaundice. GI, general surgeon oncology. May benefit from MRCP Right hemidiaphragmatic elevation his chronic dyspnea is multifactorial, no acute signs of pulmonary decompensation Continue antibiotics as the patient may have a component of an acute on top of chronic cholecystitis in the pro-calcitonin level is elevated. Continue cefepime for now Provide incentive spirometer Consider draining the ascitic fluid which may give her some symptomatic relief. This can be done by interventional radiology. Pulmonary involvement in this case is limited as most of her issues are nonrelated to pulmonary disorder.
--- NOTE | 2020-09-18 15:39 | P.CONS ---
History of Present Illness - Reason for Consult Consult date: 09/17/20 Metastatic Breast Cancer Requesting physician: Ferdinand Garcia - Chief Complaint Jaundice - History of Present Illness Maryam is referred for evaluation of Thrombocytopenia noted for last few months. The patient denied prior Hematologic prcess, stated feeling tired and out of energy of ? cause. She was noted to have elevated LFT and is referred to Dr J Carlos Pitts but not seen yet, she denied prior history of hepatitis or liver disorders. The patient reported recent nose bleeds, she takes NSAIDs for arthralgias and mirgane (trying to avoid taking Tylenol due to elevated LFTs). Review of CBC results past 6 months revealed isolated Thrombocytopenia 60-120 K, no severe thrombocytopenia noted. She is being followed by Dr Anand Dallas (Pulmonary) and getting Xolair injections monthly. 05/22/19: Feels well, had recent routine brain MRI (History of brain tumor) revealing increased marrow signal, as well as, < 1cm cervical lymph nodes. She was seen by Dr J Carlos pitts and according to patient she was told to have advanced liver disease, she was advised to loose weight. 08/27/19-Pt here for f/u, her CBC is stable, she is feeling better since being on allopurinol, no new LN swellings, fevers, sweats, no other c/o today. 09/30/19: C/O excessive fatigue & diffuse body aches. Biopsy of R axillary LN: Metastatic Lobular carcinoma of breast (ER/TX 91%/10%) [id number] 0. 10/20/19-Pt here for f/u, 2 weeks into verzenio and femara, her only c/o is severe fatigue, her Hgb is 7.2 today, no N,V, appetite is fair, no diarrhea, she had increased urinary frequency, no hematuria, dysuria, suprapubic discomfort, her previous urine was neg for infection. She is feeling frustrated. No other c/o, questions or concerns. 11/17/19-Pt here for f/u, 5 weeks into verzenio and femara, no missed doses. She completed a course of abx for UTI-no symptoms to report, denies s/s yeast infection. She continues on Ca++ vit D, she is due for 2nd xgeva injection. She has c/o moderate fatigue, loss of taste for meat and chocolate. No other c/o on a 10 point ROS, tolerating treatment well at this time. the patient continued to have low WBC and platelets, despite improvement in her tumor markers. 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 The patient was started on steroids on 12/07/19. 12/15/19-Pt here today for f/u, she was started on pred taper for hemolysis, she is doing well, steroid SE of increased appetite and urination, no other c/o, her Hgb is up to 9.6, plt 92K. She started treatment with verzenio and femara 10/05 and continues to tolerate well, she is due for xgeva tomorrow. Mild constipation only c/o. She is no longer requiring assistive device to get around, she working with PT/OT, going to start tapering her O2 soon. She can no longer palpate any nodes or masses! She feels very good! Was doing work around the house today. as above. she completed her steroid taper in the week of 01/18/20. 02/15/20-Pt here for verzenio and femara f/u, she is doing well on therapy, has no c/o r/t meds. She has low back pain, started about 5 days ago, 11/18, no aggravating factor or injury to report, constant, tylenol has not helped, she used a small massager and thet helped a very little, L>R, no other neuro symptoms, she will have LLE tingling when she gets up, no changes in bowel or bladder habits. The patient was unable to have the MRI ordered by her PCP as she became claustrophobic. Open MRI was recommended. She also reports feeling of congestion and decreased hearing in the left ear. 04/06/20-Pt saw Dr. Villatoro-total hearing loss, MRI head ordered. She had open MRI of the spine-still pending report. She cont on verzenio and femara, she is having some indigestion after eating, she had watery diarrhea yesterday, no sto ol today. She thinks her diet has someting to do with bowel and stomach c/o. No other c/o, questions or concerns. the patient was seen at her own request in 08/16/20. She stated that over the past 10-12 days, she had been experiencing intermittent nausea with decreased appetite. She had had some dizziness which however improved. She had developed a warm, hard lump on the left upper thigh, which had however drained significantly and diminished with warm compresses.she also reports some i ntermittent,, vague generalized abdominal discomfort. patient's tumor marker showed significant elevation, with 27-29 at 1153, and 15-[address] chest abdomen and pelvis as well as bone scan did not appear to show significant progression with surgery, but there did appear to be progression of osseous metastatic disease. She now presents lethargic, jaundice. COncern of Cholecystitis however she cannot fit into MRI machine to undergo MRCP. She was recently started on Verzenio and Faslodex. Review of Systems All systems: negative Constitutional: Reports as per HPI Past Medical History Past Medical History: Cancer, Hyperlipidemia, Hypertension, Respiratory Disorder Additional Past Medical History / Comment(s): Chronic low back pain, degenerative disc disease, benign neoplasm of cerebral meninges. hx asthma last few months more sob unable to get into pulmonary dr until saturday.no inhalers usedor o2 History of Any Multi-Drug Resistant Organisms: None Reported Past Surgical History: Breast Surgery, Section, Joint Replacement Additional Past Surgical History / Comment(s): brain surgery. BILAT TKA. LT SHOULDER SX. LT CATARACT REMOVED WITH LENS IMPLANT Past Anesthesia/Blood Transfusion Reactions: No Reported Reaction Past Psychological History: No Psychological Hx Reported Smoking Status: Former smoker Past Alcohol Use History: None Reported Additional Past Alcohol Use History / Comment(s): QUIT SMOKING AGE 29 Past Drug Use History: None Reported - Past Family History Sister(s) Family Medical History: Cancer Medications and Allergies Home Medications Medication Instructions Recorded Confirmed Type Oxybutynin Chloride [Oxybutynin 10 mg PO DAILY@0900 01/22/17 09/16/20 History Chloride ER] lisinopriL [Prinivil] 20 mg PO DAILY@0900 01/22/17 09/16/20 History Cholecalciferol (Vitamin D3) 125 mcg PO DAILY 09/17/19 09/16/20 History [Vitamin D3] Cyanocobalamin (Vitamin B-12) 1,000 mcg PO DAILY 09/17/19 09/16/20 History [Vitamin B-12] Gabapentin [Neurontin] 200 mg PO HS@199909/17/19 09/16/20 History Multivitamins, Thera [Multivitamin 1 tab PO DAILY 09/17/19 09/16/20 History (formulary)] Calcium Carbonate [Calcium] 600 mg PO DAILY 09/25/19 09/16/20 History Abemaciclib [Verzenio] 50 mg PO BID@1000,2100 09/16/20 09/16/20 History Calcium Carbonate [Tums] 500 mg PO QID 09/16/20 09/16/20 History Ferrous Sulfate [Feosol] 325 mg PO DAILY 09/16/20 09/16/20 History Letrozole [Femara] 2.5 mg PO HS@199909/16/20 09/16/20 History Ondansetron [Zofran] 4 mg PO Q6H PRN 09/16/20 09/16/20 History Allergies Allergy/AdvReac Type Severity Reaction Status Date / Time No Known Allergies Allergy Verified 09/16/20 19:13 Physical Exam Vitals: Vital Signs Temp Pulse Pulse Pulse Resp BP BP 09/17/20 06:53 98.3 F 92 18 96/61 09/17/20 02:00 98.6 F 95 16 96/57 09/17/20 00:10 98.0 F 91 16 112/68 09/16/20 23:16 98.4 F 93 18 117/45 09/16/20 21:50 98.2 F 95 18 152/70 09/16/20 20:31 98 18 126/69 09/16/20 19:14 98.2 F 85 16 109/45 09/16/20 18:04 92 09/16/20 17:47 99.9 F H 89 20 113/58 Pulse Ox 09/17/20 06:53 98 09/17/20 02:00 95 09/17/20 00:10 97 09/16/20 23:16 96 09/16/20 21:50 95 09/16/20 20:31 97 09/16/20 19:14 98 09/16/20 18:04 09/16/20 17:47 93 L Intake and Output 09/16/20 09/17/20 09/17/20 22:59 06:59 14:59 Other: Voiding Method Bedside Commode Bedside Commode # Voids 2 Weight 113.398 kg 113.398 kg 113.398 kg - Constitutional General appearance: cooperative, morbidly obese - EENT Eyes: scleral icterus ENT: hard of hearing - Neck Neck: normal ROM - Respiratory Respiratory: bilateral: diminished (Bilateral Bases) - Cardiovascular Rhythm: regularly irregular - Gastrointestinal General gastrointestinal: soft, tenderness - Integumentary Integumentary: jaundiced - Neurologic non focal - Musculoskeletal Musculoskeletal: generalized weakness - Psychiatric Lethargic. Psychiatric: A&O x's 3 Results CBC & Chem 7: 09/17/20 08:06 09/17/20 08:06 Labs: Abnormal Lab Results - Last 24 Hours (Table) 09/16/20 09/16/20 09/16/20 Range/Units 18:01 18:45 18:45 WBC (3.8-10.6) k/uL RBC (3.80-5.40) m/uL Hgb (11.4-16.0) gm/dL Hct (34.0-46.0) % MCV (80.0-100.0) fL MCH (25.0-35.0) pg MCHC (31.0-37.0) g/dL RDW (11.5-15.5) % Plt Count (150-450) k/uL Monocytes # (Manual) (0-1.0) k/uL Metamyelocytes # (Man) (0) k/uL Myelocytes # (Manual) (0) k/uL Nucleated RBCs (0-0) /100 WBC Macrocytosis PT 14.8 H (9.0-12.0) sec INR 1.5 H (<1.2) D-Dimer 3.47 H (<0.60) mg/L FEU Sodium 131 L (137-145) mmol/L Potassium 5.4 H (3.5-5.1) mmol/L Carbon Dioxide 19 L (22-30) mmol/L Glucose 107 H (74-99) mg/dL Plasma Lactic Acid Phani (0.7-2.0) mmol/L Magnesium 2.5 H (1.6-2.3) mg/dL Total Bilirubin 10.2 H (0.2-1.3) mg/dL AST 205 H (14-36) U/L ALT 43 H (4-34) U/L Ammonia (<30) umol/L Total Protein (6.3-8.2) g/dL Albumin 3.2 L (3.5-5.0) g/dL Urine Appearance Cloudy H (Clear) Urine Protein 1+ H (Negative) Urine Ketones Trace H (Negative) Urine Blood Trace H (Negative) Urine Bilirubin 3+ H (Negative) Ur Leukocyte Esterase Small H (Negative) Urine WBC 10 H (0-5) /hpf Urine Mucus Many H (None) /hpf 09/16/20 09/16/20 09/17/20 Range/Units 18:45 20:05 08:06 WBC 13.4 H (3.8-10.6) k/uL RBC 2.63 L 2.58 L (3.80-5.40) m/uL Hgb 10.6 L 9.8 L (11.4-16.0) gm/dL Hct 31.7 L 32.5 L (34.0-46.0) % MCV 120.6 H 125.9 H D (80.0-100.0) fL MCH 40.4 H 38.1 H (25.0-35.0) pg MCHC 30.3 L (31.0-37.0) g/dL RDW 19.9 H 20.5 H (11.5-15.5) % Plt Count 120 L 113 L (150-450) k/uL Monocytes # (Manual) 1.34 H 1.10 H (0-1.0) k/uL Metamyelocytes # (Man) 0.27 H 0.20 H (0) k/uL Myelocytes # (Manual) 0.13 H 0.30 H (0) k/uL Nucleated RBCs 29 H 31 H (0-0) /100 WBC Macrocytosis Marked A Marked A PT (9.0-12.0) sec INR (<1.2) D-Dimer (<0.60) mg/L FEU Sodium (137-145) mmol/L Potassium (3.5-5.1) mmol/L Carbon Dioxide (22-30) mmol/L Glucose (74-99) mg/dL Plasma Lactic Acid Phani 2.2 H* (0.7-2.0) mmol/L Magnesium (1.6-2.3) mg/dL Total Bilirubin (0.2-1.3) mg/dL AST (14-36) U/L ALT (4-34) U/L Ammonia 37 H (<30) umol/L Total Protein (6.3-8.2) g/dL Albumin (3.5-5.0) g/dL Urine Appearance (Clear) Urine Protein (Negative) Urine Ketones (Negative) Urine Blood (Negative) Urine Bilirubin (Negative) Ur Leukocyte Esterase (Negative) Urine WBC (0-5) /hpf Urine Mucus (None) /hpf 09/17/20 Range/Units 08:06 WBC (3.8-10.6) k/uL RBC (3.80-5.40) m/uL Hgb (11.4-16.0) gm/dL Hct (34.0-46.0) % MCV (80.0-100.0) fL MCH (25.0-35.0) pg MCHC (31.0-37.0) g/dL RDW (11.5-15.5) % Plt Count (150-450) k/uL Monocytes # (Manual) (0-1.0) k/uL Metamyelocytes # (Man) (0) k/uL Myelocytes # (Manual) (0) k/uL Nucleated RBCs (0-0) /100 WBC Macrocytosis PT (9.0-12.0) sec INR (<1.2) D-Dimer (<0.60) mg/L FEU Sodium 133 L (137-145) mmol/L Potassium (3.5-5.1) mmol/L Carbon Dioxide 21 L (22-30) mmol/L Glucose 112 H (74-99) mg/dL Plasma Lactic Acid Phani (0.7-2.0) mmol/L Magnesium (1.6-2.3) mg/dL Total Bilirubin 9.6 H (0.2-1.3) mg/dL AST 180 H (14-36) U/L ALT 43 H (4-34) U/L Ammonia (<30) umol/L Total Protein 5.5 L (6.3-8.2) g/dL Albumin 2.7 L (3.5-5.0) g/dL Urine Appearance (Clear) Urine Protein (Negative) Urine Ketones (Negative) Urine Blood (Negative) Urine Bilirubin (Negative) Ur Leukocyte Esterase (Negative) Urine WBC (0-5) /hpf Urine Mucus (None) /hpf CT scan - abdomen: report reviewed CT scan - chest: report reviewed CT scan - pelvis: report reviewed Assessment and Plan (1) Metastatic breast cancer Current Visit: Yes Status: Acute Code(s): C50.919 - MALIGNANT NEOPLASM OF UNSP SITE OF UNSPECIFIED FEMALE BREAST SNOMED Code(s): 416862109 (2) Cholecystitis Current Visit: Yes Status: Acute Code(s): K81.9 - CHOLECYSTITIS, UNSPECIFIED SNOMED Code(s): 66742482 (3) Generalized weakness Current Visit: Yes Status: Acute Code(s): R53.1 - WEAKNESS SNOMED Code(s): 76343298 (4) Hyperbilirubinemia Current Visit: Yes Status: Acute Code(s): E80.6 - OTHER DISORDERS OF BILIRUBIN METABOLISM SNOMED Code(s): 90666079 Plan: Assessment and Recommendations: Metastatic Breast Cancer: - Recent progression with new regimen initiated Cholecystitis: - Unable to further work-up given her habitual size - GI and Gen Surg are following Conservative treatment at this time and continue to monitor respiratory status as has declined.
--- NOTE | 2020-09-18 15:41 | P.PN ---
Subjective Progress Note Date: 09/18/20 Principal diagnosis: Metastatic Breast Cancer Sitting up in chair and dosing on and off while discussing her hospital stay with her. She is quite Jaundice, poor historian, no family at bedside. Objective - Vital Signs Vital signs: Vital Signs Temp 98.3 F 09/18/20 13:51 Pulse 85 09/18/20 13:51 Resp 18 09/18/20 13:51 BP 98/65 09/18/20 13:51 Pulse Ox 94 L 09/18/20 13:51 Intake & Output 09/17/20 09/18/20 09/18/20 18:59 06:59 18:59 Output Total 300 Balance -300 Weight 113.398 kg Output: Urine 300 Other: Voiding Method Bedside Commode Bedside Commode Bedside Commode # Voids 2 - Exam Constitutional General appearance: cooperative, morbidly obese - EENT Eyes: scleral icterus ENT: hard of hearing - Neck Neck: normal ROM - Respiratory Respiratory: bilateral: diminished (Bilateral Bases) - Cardiovascular Rhythm: regularly irregular - Gastrointestinal General gastrointestinal: soft, tenderness - Integumentary Integumentary: jaundiced - Neurologic non focal - Musculoskeletal Musculoskeletal: generalized weakness - Psychiatric Lethargic. Psychiatric: A&O x's 3 - Labs CBC & Chem 7: 09/17/20 08:06 09/17/20 08:06 Labs: Abnormal Lab Results - Last 24 Hours (Table) 09/17/20 09/17/20 09/17/20 Range/Units 13:35 13:35 18:10 Iron 203 H (50-170) ug/dL % Saturation 69.52 H (12.00-45.00) Lactate Dehydrogenase 474 H (120-246) U/L CA 15-3 Antigen 1171.9 H (0.0-32.3) U/mL CA 27-29 1854.5 H (0.0-38.5) U/mL Vitamin B12 >4000.0 H (200.0-944.0) pg/mL Procalcitonin (0.02-0.09) ng/mL Ur Specific [place] 1.039 H (1.001-1.035) Urine Protein Trace H (Negative) Urine Ketones Trace H (Negative) Urine Bilirubin 2+ H (Negative) Ur Leukocyte Esterase Trace H (Negative) Urine Mucus Few H (None) /hpf 09/18/20 Range/Units 05:19 Iron (50-170) ug/dL % Saturation (12.00-45.00) Lactate Dehydrogenase (120-246) U/L CA 15-3 Antigen (0.0-32.3) U/mL CA 27-29 (0.0-38.5) U/mL Vitamin B12 (200.0-944.0) pg/mL Procalcitonin 0.47 H (0.02-0.09) ng/mL Ur Specific [place] (1.001-1.035) Urine Protein (Negative) Urine Ketones (Negative) Urine Bilirubin (Negative) Ur Leukocyte Esterase (Negative) Urine Mucus (None) /hpf Microbiology - Last 24 Hours (Table) 09/16/20 18:45 Blood Culture - Preliminary Blood No Growth after 24 hours Assessment and Plan (1) Metastatic breast cancer Current Visit: Yes Status: Acute Code(s): C50.919 - MALIGNANT NEOPLASM OF UNSP SITE OF UNSPECIFIED FEMALE BREAST SNOMED Code(s): 312023968 (2) Cholecystitis Current Visit: Yes Status: Acute Code(s): K81.9 - CHOLECYSTITIS, UNSPECIFIED SNOMED Code(s): 27186639 (3) Generalized weakness Current Visit: Yes Status: Acute Code(s): R53.1 - WEAKNESS SNOMED Code(s): 87318648 (4) Hyperbilirubinemia Current Visit: Yes Status: Acute Code(s): E80.6 - OTHER DISORDERS OF BI LIRUBIN METABOLISM SNOMED Code(s): 93518293 Plan: Assessment and Recommendations: Metastatic Breast Cancer: - Recent progression with new regimen initiated Cholecystitis: - Unable to further work-up given her habitual size - GI and Gen Surg are following Acute Respiratory Insufficiency: - Pulmonary has been asked to further evaluate PLan: - Monitor Liver function, CBC, and COags daily
[2020-09-18 16:18] LABS: Anisocytosis Moderate; Basophils # (A) 0.6 k/uL (0-0.2); Basophils % (A) 4 %; Eosinophils # (A) 0.1 k/uL (0-0.7); Eosinophils % (A) 0 %; HCT 34.3 % (34.0-46.0); HGB 10.5 gm/dL (11.4-16.0); Hypochromasia Marked; INR 1.9 (<1.2); Lymphocytes # (A) 5.7 k/uL (1.0-4.8); Lymphocytes % (A) 37 %; MCH 37.9 pg (25.0-35.0); MCHC 30.8 g/dL (31.0-37.0); Macrocytosis Marked; Mean Platelet Volume 9.8; Monocytes # (A) 1.5 k/uL (0-1.0); Monocytes % (A) 10 %; Neutrophils # (A) 5.7 k/uL (1.3-7.7); Neutrophils % (A) 37 %; Platelet Count 135 k/uL (150-450); RBC 2.78 m/uL (3.80-5.40); RDW 20.6 % (11.5-15.5)
[2020-09-18 16:22] LABS: MCV 123.3 fL (80.0-100.0)
[2020-09-18 16:40] LABS: ALT 51 U/L (4-34); AST 247 U/L (14-36); African American GFR (CKD) >90 (>60 ml/min/1.73 sqM); Alkaline Phosphatase 115 U/L (38-126); Anion Gap 6 mmol/L; Band Neutrophils % 2 %; Blood Urea Nitrogen 15 mg/dL (7-17); Calcium 9.9 mg/dL (8.4-10.2); Carbon Dioxide 21 mmol/L (22-30); Chloride 105 mmol/L (98-107); Globulin 3.1 g/dL; Glucose 122 mg/dL (74-99); Lymphocytes # (M) 5.35 k/uL (1.0-4.8); Metamyelocytes % 1 %; Monocytes # (M) 0.71 k/uL (0-1.0); Neutrophils % (M) 36 %; Non-African American GFR(CKD) 89 (>60 ml/min/1.73 sqM); Nucleated Red Blood Cells 54 /100 WBC (0-0); Potassium 5.2 mmol/L (3.5-5.1); Sodium 132 mmol/L (137-145); Total Cells Counted 200; Total Protein 6.1 g/dL (6.3-8.2); WBC 10.1 k/uL (3.8-10.6)
[2020-09-18 16:41] LABS: Polychromasia Present
[2020-09-18] MEDS: VERZENIO PO SCH (20:43)
[2020-09-18] MEDS: GABAPENTIN 100 MG CAP PO SCH (20:44)
[2020-09-18] MEDS: LETROZOLE 2.5 MG TAB PO SCH (20:44)
[2020-09-18] MEDS ORDERED: BENZOCAINE/MENTHOL LOZENG 1 EACH LOZENGE MUCOUS MEM PRN (21:21)
--- NOTE | 2020-09-18 23:01 | P.PN ---
Progress Note - Text Progress Note Date: 09/18/20 Chief Complaint: Increasing confusion History of presenting complaint: This is a 65-year-old patient who follows with Dr. Andrade. Oncologist Dr. De La Paz. Patient had presented to the ER with her son. He reported that the patient has been feeling weak for several days. Has known metastatic breast cancer with bone metastasis and is currently being treated with oral chemotherapy. Patient has been becoming increasingly confused recently. Patient has been becoming uns teady. Patient does live alone. Has a slight cough. Has chronic unchanged dyspnea. Patient slow to answer questions. Denies any headache or vision changes. No chest pain. Decreased appetite. No fever no chills. September 18: Patient unable to have MRI of the brain as she will not fit because of her weight. Tired Laying in bed. Review of systems: Was done for constitutional, cardiovascular, GI, pulmonary. relevant finding as above Active Medications Benzocaine/Menthol (Benzocaine/Menthol Lozeng 1 Each Lozenge) 1 each MUCOUS MEM Q4HR PRN PRN Reason: Cough Last Admin: 09/18/20 21:48 Dose: 1 each Documented by: Calcium Carbonate/Glycine (Calcium Carbonate 500 Mg Chewable) 500 mg PO QID [facility] Last Admin: 09/18/20 21:48 Dose: 500 mg Documented by: Cholecalciferol (Cholecalciferol 25 Mcg (1000 Iu) Tablet) 125 mcg PO DAILY [facility] Last Admin: 09/18/20 09:36 Dose: 125 mcg Documented by: Cyanocobalamin (Cyanocobalamin 500 Mcg Tab) 1,000 mcg PO DAILY [facility] Last Admin: 09/18/20 09:37 Dose: 1,000 mcg Documented by: Enoxaparin Sodium (Enoxaparin 40 Mg/0.4 Ml Syringe) 40 mg SQ DAILY [facility] Last Admin: 09/18/20 09:36 Dose: 40 mg Documented by: Ferrous Sulfate (Ferrous Sulfate 325 Mg Tab) 325 mg PO DAILY [facility] Last Admin: 09/18/20 09:36 Dose: 325 mg Documented by: Gabapentin (Gabapentin 100 Mg Cap) 200 mg PO HS@2000 [facility] Last Admin: 09/18/20 20:44 Dose: 200 mg Documented by: Sodium Chloride (Saline 0.9%) 1,000 mls @ 80 mls/hr IV .[id number] [facility] Last Admin: 09/18/20 12:42 Dose: 80 mls/hr Documented by: Cefepime HCl 1 gm/ Sodium (Chloride) 50 mls @ 12.5 mls/hr IVPB Q12HR [facility] Last Admin: 09/18/20 20:43 Dose: 12.5 mls/hr Documented by: Lisinopril (Lisinopril 20 Mg Tab) 20 mg PO DAILY@0900 [facility] Last Admin: 09/18/20 09:37 Dose: Not Given Documented by: Multivitamins (Multivitamins, Thera 1 Each Tab) 1 each PO DAILY [facility] Last Admin: 09/18/20 09:37 Dose: 1 each Documented by: Letrozole 2.5 Mg Tab 2.5 each PO HS@1999 [facility] Last Admin: 09/18/20 20:44 Dose: 2.5 each Documented by: Verzenio ( Abemaciclib) 50 Mg Tablet 50 mg PO BID@1000,2100 [facility] Last Admin: 09/18/20 20:43 Dose: 50 mg Documented by: Oxybutynin Chloride (Oxybutynin 10 Mg Tab.Er.24) 10 mg PO DAILY@0900 [facility] Last Admin: 09/18/20 09:38 Dose: 10 mg Documented by: Past medical history to include: Metastatic breast cancer with metastases to the bone on oral chemotherapy, hypertension, hyperlipidemia, DJD, Social history: Remote history of smoking. No alcohol. Lives alone. Family history: Cancer Physical examination: VITAL SIGNS: 98.3, 85, 18, 98.65, 94% room air GENERAL: BMI 47.2, laying in bed, tired slightly lethargic but awake. EYES: Pupils equal. Conjunctiva normal. HEENT: External appearance of nose and ears normal, oral cavity grossly normal. NECK: JVD not raised; masses not palpable. HEART: First and second heart sounds are normal; no edema. LUNGS: Respiratory rate increased decreased breath sounds. ABDOMEN: Soft, nontender, liver spleen not palpable, no masses palpable. PSYCH: Patient knows that she is in the hospital. Cannot give the name. Could not tell the month of the year MUSCULAR skeletal: Evidence of OA INVESTIGATIONS, reviewed in the clinical context: High resolution CT chest: Mild pulmonary interstitial infiltrates. Improved September 18: WBC 10.1 hemoglobin 10.5 platelets 135 potassium 5.2 creatinine 0.71 AST 247 ALT 51 Pro-calcitonin 0.47 CA 15-3 antigen: 1171 CA 27-29 1854 vitamin B12 greater than 4000 WBC 10 hemoglobin 9.8 MCV 125 platelets 113 potassium 4.6 creatinine 0.84 Total bilirubin 9.6 AST 18T ALT 43 alkaline phosphatase 98 albumin 2.7 Admission labs: Potassium 5.4 lactic acid 2.2. Total bilirubin 10.2 AST 205 ALT 43 UA positive for small leukoesterase, 10 WBC COVID 19 negative EKG tracing personally reviewed by me-normal sinus rhythm, nonspecific ST segment changes Gallbladder ultrasound: per lobe liver eyesight chronic contents with human with sludge and with hyperechoic focus in the fundus abnormally thickened wall fluid noted surrounding fundus. CT abdomen fundus: Moderate abdominal ascites. Gallstones. Chest CTA: Negative for PE. New pulmonary interstitial infiltrates CT brain: Encephalomyelitis year no midline shift. Chest x-ray film personally reviewed by me-elevated right diaphragm Assessment and plan: -Acute metabolic encephalopathy: Slow to respond Patient presents with altered mental status, lethargic last few days. No fever no chills. Patient has encephalomalacia on the computed tomography scan. Patient unable to have MRI of the brain. -Possible pneumonia, suspect gram-negative organism On IV cefepime -Metastatic breast cancer with metastatic the bone On oral chemotherapy. Consult oncology -Morbid obesity BMI 47.2 -Chronic shortness of breath. Computed tomography scan of the chest showing evidence of fibrosis. Clinically does not have any evidence of acute infection. This could be fibrosis from chemotherapy or malignancy. Consult pulmonary. 2-D echo -Thrombocytopenia, likely secondary to underlying malignancy and/or chemotherapy Follow CBC -Essential hypertension Prinivil -Peripheral neuropathy On Neurontin -Vitamin B-12 deficiency B12 supplement -Chronic urinary stress incontinence On oxybutynin -Possible acute on chronic cholecystitis Follow with surgery. IV cefepime. Continue IV cefepime. Other medications to continue. Prognosis guarded.
[2020-09-19] MEDS: SODIUM CHLORIDE 0.9% 1,000 ML IV SCH ×2 (01:58→16:34)
[2020-09-19] MEDS: CHOLECALCIFEROL 25 MCG (1000 IU) TABLET PO SCH (07:17)
[2020-09-19] MEDS: CYANOCOBALAMIN 500 MCG TAB PO SCH (07:18)
[2020-09-19] MEDS: MULTIVITAMINS, THERA 1 EACH TAB PO SCH (07:18)
[2020-09-19] MEDS: ENOXAPARIN 40 MG/0.4 ML SYRINGE SQ SCH (07:18)
[2020-09-19] MEDS: FERROUS SULFATE 325 MG TAB PO SCH (07:18)
[2020-09-19] MEDS: CALCIUM CARBONATE 500 MG CHEWABLE PO SCH ×4 (07:18→21:11)
[2020-09-19] MEDS: CEFEPIME 1 GM in SODIUM CHLORIDE 0.9% 50 ML IVPB SCH ×2 (07:19→21:51)
[2020-09-19] MEDS: OXYBUTYNIN 10 MG TAB.ER.24 PO SCH (07:19)
[2020-09-19] MEDS: lisinopriL 20 MG TAB PO SCH (07:33)
[2020-09-19 07:52] LABS: Anisocytosis Moderate; HCT 32.6 % (34.0-46.0); HGB 10.3 gm/dL (11.4-16.0); Hypochromasia Marked; MCH 38.6 pg (25.0-35.0); MCHC 31.7 g/dL (31.0-37.0); MCV 121.9 fL (80.0-100.0); Macrocytosis Marked; Mean Platelet Volume 10.1; Platelet Count 136 k/uL (150-450); RBC 2.68 m/uL (3.80-5.40); RDW 20.9 % (11.5-15.5)
[2020-09-19 08:11] LABS: ALT 53 U/L (4-34); AST 245 U/L (14-36); African American GFR (CKD) >90 (>60 ml/min/1.73 sqM); Albumin 2.8 g/dL (3.5-5.0); Albumin/Globulin Ratio 0.9; Alkaline Phosphatase 121 U/L (38-126); Anion Gap 4 mmol/L; Blood Urea Nitrogen 14 mg/dL (7-17); Calcium 9.9 mg/dL (8.4-10.2); Carbon Dioxide 23 mmol/L (22-30); Chloride 107 mmol/L (98-107); Globulin 3.1 g/dL; Glucose 106 mg/dL (74-99); Non-African American GFR(CKD) 88 (>60 ml/min/1.73 sqM); Sodium 134 mmol/L (137-145); Total Bilirubin 12.6 mg/dL (0.2-1.3); Total Protein 5.9 g/dL (6.3-8.2)
[2020-09-19 08:14] LABS: INR 1.8 (<1.2); Prothrombin Time 17.8 sec (9.0-12.0)
[2020-09-19 10:21] LABS: Band Neutrophils % 2 %; Metamyelocytes % 1 %; Myelocytes % 3 %; Neutrophils % (M) 50 %; Nucleated Red Blood Cells 27 /100 WBC (0-0); Total Cells Counted 200
[2020-09-19 10:22] LABS: Lymphocytes # (M) 4.92 k/uL (1.0-4.8); Metamyelocytes # (M) 0.15 k/uL (0); Monocytes # (M) 1.79 k/uL (0-1.0); Myelocytes # (M) 0.45 k/uL (0); WBC 14.9 k/uL (3.8-10.6)
[2020-09-19 10:26] LABS: Howell-Jolly Bodies Present
[2020-09-19 10:28] LABS: Polychromasia Present
[2020-09-19] MEDS: VERZENIO PO SCH (10:36)
--- NOTE | 2020-09-19 11:20 | FL ---
EXAMINATION TYPE: FL sniff test without CXR DATE OF EXAM: 09/19/2020 COMPARISON: NONE HISTORY: Possible right diaphragm paralysis TECHNIQUE: Fluoroscopy. FINDINGS: The right hemidiaphragm is elevated. There is normal incursion and excursion of the diaphra gms without paradoxical motion upon sniffing. IMPRESSION: As Above.
--- NOTE | 2020-09-19 11:51 | CDI ---
Documentation Clarification Form Date: 09/19/2020 11:35:54 AM From: Rosalva Ann RN CCDS Admit Date: 09/16/2020 10:35:00 PM Patient Name: Maryam Escoto Visit Number: [id number] Discharge Date: ATTENTION: The Clinical Documentation Specialists (CDI) and [facility] Coding Staff appreciate your assistance in clarifying documentation. Please respond to the clarification below the line at the bottom and electronically sign. The CDI & [facility] Coding staff will review the response and follow-up if needed. Please note: Queries are made part of the Legal Health Record. If you have any questions, please contact the author of this message via ITS. Dr. Shaun De La Fuente, The patient presented with the following clinical indicators. Additional clarification regarding the etiology/cause of the clinical indicators is requested. History/Risk Factors: 65-year-old female presents to the ED with feeling weak for several days, confusion and slight cough. Medical History: Metastatic breast cancer with bone metastasis being treated with oral chemotherapy. Metastasis to the bone, HTN, and HLD. Clinical Indicators: WBC: 09/16 13.4 Lactic acid: 09/16 2.2 Vitals signs: 17:47 B/P 113/58; HR 89; Temp 99.9 F Oral; RR 20; SpO2 93% RA. CT ABD: 09/[address] CX: 09/17 Mild pulmonary interstitial infiltrates appear improved compared to CT scan yesterday. Improvement more noticeable in the upper lobes. HP: 09/17 Possible acute on chronic cholecystitis. Attending Progress note 09/18: Possible pneumonia, suspect gram negative. Treatment: Antibiotics: 09/16 Piperacillin Sod/Tazobactam Sod 3.375gm IVPB x 1; 09/17 Cefepime HCL 1gm IVPB Q12HR. IV Bolus: 09/16 0.9NS 1L Bolus x 1 In your professional opinion, please clarify if these findings signify one of the following conditions: [ ] Sepsis POA [ ] Sepsis ruled out [ ] Other, please specify [ ] Unable to determine SIRS Criteria: 2 or more of the following may indicate SIRS -Temperature < 96.8F (36C) or > 101.0F (38.3C) -Heart Rate > 90 bpm -Respiratory Rate > 20 breaths/min or PaCO2 < 32 mmHg -White Blood Cell Count > 12,000 or < 4,000 cells/mm3 or > 10% bands (Template Last Reviewed: April 2020) Sepsis ruled out MTDD
--- NOTE | 2020-09-19 13:15 | P.PN ---
Subjective Progress Note Date: 09/19/20 Principal diagnosis: Dyspnea I was asked to evaluate this patient for shortness of breath. She is a pleasant obese female patient with a BMI of 47 who is currently 65 years of age and she has metastatic breast cancer whereas been managed by combination of Abdullahi and Vernoe on outpatient basis. Patient presented to the hospital because of generalized weakness which was gradually getting worse and for that reason she end up coming into the hospital. She was feeling weak and there was some limited confusion at the time of admission. She was becoming more unsteady and she also was having some chronic exertional dyspnea. No significant cough or sputum production. CAT scan of the brain that was done at time of admission showed increased density at the greater wing of the sphenoid bone consistent with meningioma without any acute abnormalities seen. Chest x-ray showed elevation of the right hemidiaphragm which is a chronic elevation and it was seen on previous he of the chest that was done on 09/08/2019. As such, the diaphragmatic elevation and possible dialysis is a chronic finding. During this current admission, the patient underwent a CT angiogram that was done on 09/16/2020 that showed no evidence of any pulmonary embolism and there was some nonspecific interstitial changes in the lung bases. Subsequently, the patient had another computed tomography scan of the chest on 09/17/2020, a noncontrast CAT scan that was done with a high resolution protocol and it showed no evidence of any interstitial fibrosis. There was some mild interstitial infiltrates improved compared to the earlier exam and improvement was noted mainly in the upper lobes. The active issue for now his obstructive jaundice. The patient has elevated bilirubin of 9.6. LFTs are abnormal. CEA 2729 and CA-15-3 are significantly elevated. Her white cell count is at 10. Pro-calcitonin level is at 0.47. Ultrasound of the gallbladder was done and it showed evidence of acute /chronic cholecystitis and there was no evidence of any dilated intrahepatic biliary ducts. Also, a CAT scan of the abdomen and pelvis was done that showed moderate ascites, no hydronephrosis, no abdominal lymphadenopathy, sigmoid diverticuli, liver was seen to be intact, no evidence of any pancreatic mass, no evidence of any gallstones. A PET scan that was done on 10/02/2019 showed metastatic disease involving the skeleton and bilateral legs are low and there was no evidence of any liver metastases. On 09/19/2000 patient seen in follow-up on medical surgical floor, she is awake and alert, oriented 3, she is resting comfortably in bed, she is currently on room air pulse ox is 91-93%, she denies any difficulty breathing, she is afebrile, hemodynamically she stable, lung sounds are clear, but diminished breaths at the bases, no rhonchi no wheezing, no cough or congestion or complaints of chest discomfort. Her abdomen is distended, and she is supposed to undergo paracentesis possibly today however INR is elevated at 1.8. Her CT chest showed mild pulmonary interstitial infiltrates no suspicious pulmonary mass. She has had no fever or chills, blood cultures have shown no growth. Today's labs have been noted. She remains on cefepime for possibility of cholestasis GI service is following, and patient is supposed to have a MRCP possibly today. Objective - Vital Signs Vital signs: Vital Signs Temp 98.3 F 09/19/20 07:30 Pulse 101 H 09/19/20 07:30 Resp 18 09/19/20 07:30 BP 106/61 09/19/20 07:30 Pulse Ox 93 L 09/19/20 07:30 Intake & Output 09/18/20 09/19/20 09/19/20 18:59 06:59 18:59 Other: Voiding Method Bedside Commode Bedside Commode Bedside Commode # Voids 2 2 - Exam GENERAL EXAM: Alert, very pleasant, obese, 65-year-old white female, jaundiced, on room air, breathing comfortably comfortable in no apparent distress. HEAD: Normocephalic/atraumatic. EYES: Normal reaction of pupils, equal size. Conjunctiva pink, sclera white. NOSE: Clear with pink turbinates. THROAT: No erythema or exudates. NECK: No masses, no JVD, no thyroid enlargement, no adenopathy. CHEST: No chest wall deformity. Symmetrical expansion. LUNGS: Equal air entry with no crackles, wheeze, rhonchi or dullness. CVS: Regular rate and rhythm, normal S1 and S2, no gallops, no murmurs, no rubs ABDOMEN: Soft, nontender. No hepatosplenomegaly, normal bowel sounds, no guarding or rigidity. EXTREMITIES: No clubbing, distended, soft, obese no cyanosis, 2+ pulses and upper and lower extremities. MUSCULOSKELETAL: Muscle strength and tone normal. SPINE: No scoliosis or deformity SKIN: No rashes CENTRAL NERVOUS SYSTEM: Alert and oriented -3. No focal deficits, tone is normal in all 4 extremities. PSYCHIATRIC: Alert and oriented -3. Appropriate affect. Intact judgment and insight. - Labs CBC & Chem 7: 09/19/20 07:12 09/19/20 07:12 Labs: Abnormal Lab Results - Last 24 Hours (Table) 09/18/20 09/18/20 09/18/20 Range/Units 15:54 15:54 15:54 WBC (3.8-10.6) k/uL RBC 2.78 L (3.80-5.40) m/uL Hgb 10.5 L (11.4-16.0) gm/dL Hct (34.0-46.0) % MCV 123.3 H (80.0-100.0) fL MCH 37.9 H (25.0-35.0) pg MCHC 30.8 L (31.0-37.0) g/dL RDW 20.6 H (11.5-15.5) % Plt Count 135 L (150-450) k/uL Lymphocytes # 5.7 H (1.0-4.8) k/uL Lymphocytes # (Manual) 5.35 H (1.0-4.8) k/uL Monocytes # 1.5 H (0-1.0) k/uL Monocytes # (Manual) (0-1.0) k/uL Basophils # 0.6 H (0-0.2) k/uL Metamyelocytes # (Man) 0.10 H (0) k/uL Myelocytes # (Manual) (0) k/uL Nucleated RBCs 54 H (0-0) /100 WBC Macrocytosis Marked A PT 19.0 H (9.0-12.0) sec INR 1.9 H (<1.2) Sodium 132 L (137-145) mmol/L Potassium 5.2 H (3.5-5.1) mmol/L Carbon Dioxide 21 L (22-30) mmol/L Glucose 122 H (74-99) mg/dL Total Bilirubin 11.0 H (0.2-1.3) mg/dL AST 247 H (14-36) U/L ALT 51 H (4-34) U/L Total Protein 6.1 L (6.3-8.2) g/dL Albumin 3.0 L (3.5-5.0) g/dL 09/19/20 09/19/20 09/19/20 Range/Units 07:12 07:12 07:12 WBC 14.9 H (3.8-10.6) k/uL RBC 2.68 L (3.80-5.40) m/uL Hgb 10.3 L (11.4-16.0) gm/dL Hct 32.6 L (34.0-46.0) % MCV 121.9 H (80.0-100.0) fL MCH 38.6 H (25.0-35.0) pg MCHC (31.0-37.0) g/dL RDW 20.9 H (11.5-15.5) % Plt Count 136 L (150-450) k/uL Lymphocytes # (1.0-4.8) k/uL Lymphocytes # (Manual) 4.92 H (1.0-4.8) k/uL Monocytes # (0-1.0) k/uL Monocytes # (Manual) 1.79 H (0-1.0) k/uL Basophils # (0-0.2) k/uL Metamyelocytes # (Man) 0.15 H (0) k/uL Myelocytes # (Manual) 0.45 H (0) k/uL Nucleated RBCs 27 H (0-0) /100 WBC Macrocytosis Marked A PT 17.8 H (9.0-12.0) sec INR 1.8 H (<1.2) Sodium 134 L (137-145) mmol/L Potassium (3.5-5.1) mmol/L Carbon Dioxide (22-30) mmol/L Glucose 106 H (74-99) mg/dL Total Bilirubin 12.6 H (0.2-1.3) mg/dL AST 245 H (14-36) U/L ALT 53 H (4-34) U/L Total Protein 5.9 L (6.3-8.2) g/dL Albumin 2.8 L (3.5-5.0) g/dL Microbiology - Last 24 Hours (Table) 09/16/20 18:45 Blood Culture - Preliminary Blood No Growth after 48 hours Assessment and Plan Plan: Assessment: 1 metastatic breast cancer, currently undergoing treatment with medical oncology. Reviewed the series of imaging that was done including a PET scan 2019, CAT scan of the abdomen and pelvis, CT angiogram of the chest and HRCT of the chest that was done during this current admission. She has metastatic disease. Unclear if there is any liver involvement. The patient will buy does have some abdominal ascites and jaundice for now which could be essentially obstructive jaundice. Investigation is in progress 2 shortness of breath, multifactorial, related to her obstructive jaundice/[id number] amount of abdominal ascites, chronic right hemidiaphragmatic elevation, obesity with a BMI of 47.2. 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 I reviewed the nurse practitioner's note and agree with the documented findings and plan of care. Lung sounds are positive for diminished breath sounds at the bases. The findings and the impression was discussed with the patient. I attest to the documentation by the nurse practitioner. Time with Patient: Less than 30
--- NOTE | 2020-09-19 14:21 | P.PN ---
Subjective Progress Note Date: 09/19/20 Principal diagnosis: Cholecystitis Patient remains somewhat confused. No significant pain today. White blood cell count increased at 18.9. Bilirubin increase to 12. Objective - Vital Signs Vital signs: Vital Signs Temp 98.3 F 09/19/20 07:30 Pulse 101 H 09/19/20 07:30 Resp 18 09/19/20 07:30 BP 106/61 09/19/20 07:30 Pulse Ox 93 L 09/19/20 07:30 Intake & Output 09/18/20 09/19/20 09/19/20 18:59 06:59 18:59 Other: Voiding Method Bedside Commode Bedside Commode Bedside Commode # Voids 2 2 - Exam Abdomen: Soft, mild distention, mild diffuse tenderness, no rebound or guarding - Labs CBC & Chem 7: 09/19/20 07:12 09/19/20 07:12 Labs: Abnormal Lab Results - Last 24 Hours (Table) 09/18/20 09/18/20 09/18/20 Range/Units 15:54 15:54 15:54 WBC (3.8-10.6) k/uL RBC 2.78 L (3.80-5.40) m/uL Hgb 10.5 L (11.4-16.0) gm/dL Hct (34.0-46.0) % MCV 123.3 H (80.0-100.0) fL MCH 37.9 H (25.0-35.0) pg MCHC 30.8 L (31.0-37.0) g/dL RDW 20.6 H (11.5-15.5) % Plt Count 135 L (150-450) k/uL Lymphocytes # 5.7 H (1.0-4.8) k/uL Lymphocytes # (Manual) 5.35 H (1.0-4.8) k/uL Monocytes # 1.5 H (0-1.0) k/uL Monocytes # (Manual) (0-1.0) k/uL Basophils # 0.6 H (0-0.2) k/uL Metamyelocytes # (Man) 0.10 H (0) k/uL Myelocytes # (Manual) (0) k/uL Nucleated RBCs 54 H (0-0) /100 WBC Macrocytosis Marked A PT 19.0 H (9.0-12.0) sec INR 1.9 H (<1.2) Sodium 132 L (137-145) mmol/L Potassium 5.2 H (3.5-5.1) mmol/L Carbon Dioxide 21 L (22-30) mmol/L Glucose 122 H (74-99) mg/dL Total Bilirubin 11.0 H (0.2-1.3) mg/dL AST 247 H (14-36) U/L ALT 51 H (4-34) U/L Total Protein 6.1 L (6.3-8.2) g/dL Albumin 3.0 L (3.5-5.0) g/dL 09/19/20 09/19/20 09/19/20 Range/Units 07:12 07:12 07:12 WBC 14.9 H (3.8-10.6) k/uL RBC 2.68 L (3.80-5.40) m/uL Hgb 10.3 L (11.4-16.0) gm/dL Hct 32.6 L (34.0-46.0) % MCV 121.9 H (80.0-100.0) fL MCH 38.6 H (25.0-35.0) pg MCHC (31.0-37.0) g/dL RDW 20.9 H (11.5-15.5) % Plt Count 136 L (150-450) k/uL Lymphocytes # (1.0-4.8) k/uL Lymphocytes # (Manual) 4.92 H (1.0-4.8) k/uL Monocytes # (0-1.0) k/uL Monocytes # (Manual) 1.79 H (0-1.0) k/uL Basophils # (0-0.2) k/uL Metamyelocytes # (Man) 0.15 H (0) k/uL Myelocytes # (Manual) 0.45 H (0) k/uL Nucleated RBCs 27 H (0-0) /100 WBC Macrocytosis Marked A PT 17.8 H (9.0-12.0) sec INR 1.8 H (<1.2) Sodium 134 L (137-145) mmol/L Potassium (3.5-5.1) mmol/L Carbon Dioxide (22-30) mmol/L Glucose 106 H (74-99) mg/dL Total Bilirubin 12.6 H (0.2-1.3) mg/dL AST 245 H (14-36) U/L ALT 53 H (4-34) U/L Total Protein 5.9 L (6.3-8.2) g/dL Albumin 2.8 L (3.5-5.0) g/dL Microbiology - Last 24 Hours (Table) 09/16/20 18:45 Blood Culture - Preliminary Blood No Growth after 48 hours Assessment and Plan (1) Cholecystitis Narrative/Plan: Patient remains somewhat confused. Her breathing seems improved. Oncology evaluation noted. There may be some benefit to diagnostic paracentesis. Will discuss further with oncology. Current Visit: Yes Status: Acute Code(s): K81.9 - CHOLECYSTITIS, UNSPECIFIED SNOMED Code(s): 10665628
--- NOTE | 2020-09-19 16:18 | P.PN ---
Subjective Progress Note Date: 09/19/20 Principal diagnosis: Metastatic Breast Cancer Will hold Verzenio at this time and await MRI/MRCP INR 1.9 - ghassan k 5mg ordered Lactulose initiated Objective - Vital Signs Vital signs: Vital Signs Temp 98 F 09/19/20 14:33 Pulse 104 H 09/19/20 14:33 Resp 17 09/19/20 14:33 BP 115/66 09/19/20 14:33 Pulse Ox 95 09/19/20 14:33 Intake & Output 09/18/20 09/19/20 09/19/20 18:59 06:59 18:59 Other: Voiding Method Bedside Commode Bedside Commode Bedside Commode # Voids 2 2 - Exam Constitutional General appearance: cooperative, morbidly obese - EENT Eyes: scleral icterus ENT: hard of hearing - Neck Neck: normal ROM - Respiratory Respiratory: bilateral: diminished (Bilateral Bases) - Cardiovascular Rhythm: regularly irregular - Gastrointestinal General gastrointestinal: soft, tenderness - Integumentary Integumentary: jaundiced - Neurologic non focal - Musculoskeletal Musculoskeletal: generalized weakness - Psychiatric Lethargic. Psychiatric: A&O x's 3 - Labs CBC & Chem 7: 09/19/20 07:12 09/19/20 07:12 Labs: Abnormal Lab Results - Last 24 Hours (Table) 09/18/20 09/18/20 09/18/20 Range/Units 15:54 15:54 15:54 WBC (3.8-10.6) k/uL RBC 2.78 L (3.80-5.40) m/uL Hgb 10.5 L (11.4-16.0) gm/dL Hct (34.0-46.0) % MCV 123.3 H (80.0-100.0) fL MCH 37.9 H (25.0-35.0) pg MCHC 30.8 L (31.0-37.0) g/dL RDW 20.6 H (11.5-15.5) % Plt Count 135 L (150-450) k/uL Lymphocytes # 5.7 H (1.0-4.8) k/uL Lymphocytes # (Manual) 5.35 H (1.0-4.8) k/uL Monocytes # 1.5 H (0-1.0) k/uL Monocytes # (Manual) (0-1.0) k/uL Basophils # 0.6 H (0-0.2) k/uL Metamyelocytes # (Man) 0.10 H (0) k/uL Myelocytes # (Manual) (0) k/uL Nucleated RBCs 54 H (0-0) /100 WBC Pathologist Review Macrocytosis Marked A PT 19.0 H (9.0-12.0) sec INR 1.9 H (<1.2) Sodium 132 L (137-145) mmol/L Potassium 5.2 H (3.5-5.1) mmol/L Carbon Dioxide 21 L (22-30) mmol/L Glucose 122 H (74-99) mg/dL Total Bilirubin 11.0 H (0.2-1.3) mg/dL AST 247 H (14-36) U/L ALT 51 H (4-34) U/L Total Protein 6.1 L (6.3-8.2) g/dL Albumin 3.0 L (3.5-5.0) g/dL 09/19/20 09/19/20 09/19/20 Range/Units 07:12 07:12 07:12 WBC 14.9 H (3.8-10.6) k/uL RBC 2.68 L (3.80-5.40) m/uL Hgb 10.3 L (11.4-16.0) gm/dL Hct 32.6 L (34.0-46.0) % MCV 121.9 H (80.0-100.0) fL MCH 38.6 H (25.0-35.0) pg MCHC (31.0-37.0) g/dL RDW 20.9 H (11.5-15.5) % Plt Count 136 L (150-450) k/uL Lymphocytes # (1.0-4.8) k/uL Lymphocytes # (Manual) 4.92 H (1.0-4.8) k/uL Monocytes # (0-1.0) k/uL Monocytes # (Manual) 1.79 H (0-1.0) k/uL Basophils # (0-0.2) k/uL Metamyelocytes # (Man) 0.15 H (0) k/uL Myelocytes # (Manual) 0.45 H (0) k/uL Nucleated RBCs 27 H (0-0) /100 WBC Pathologist Review See comment A Macrocytosis Marked A PT 17.8 H (9.0-12.0) sec INR 1.8 H (<1.2) Sodium 134 L (137-145) mmol/L Potassium (3.5-5.1) mmol/L Carbon Dioxide (22-30) mmol/L Glucose 106 H (74-99) mg/dL Total Bilirubin 12.6 H (0.2-1.3) mg/dL AST 245 H (14-36) U/L ALT 53 H (4-34) U/L Total Protein 5.9 L (6.3-8.2) g/dL Albumin 2.8 L (3.5-5.0) g/dL Microbiology - Last 24 Hours (Table) 09/16/20 18:45 Blood Culture - Preliminary Blood No Growth after 48 hours Assessment and Plan (1) Metastatic breast cancer Current Visit: Yes Status: Acute Code(s): C50.919 - MALIGNANT NEOPLASM OF UNSP SITE OF UNSPECIFIED FEMALE BREAST SNOMED Code(s): 738525871 (2) Cholecystitis Current Visit: Yes Status: Acute Code(s): K81.9 - CHOLECYSTITIS, UNSPECIFIED SNOMED Code(s): 84337818 (3) Generalized weakness Current Visit: Yes Status: Acute Code(s): R53.1 - WEAKNESS SNOMED Code(s): 39786339 (4) Hyperbilirubinemia Current Visit: Yes Status: Acute Code(s): E80.6 - OTHER DISORDERS OF BILIRUBIN METABOLISM SNOMED Code(s): 58916440 Plan: Assessment and Recommendations: Metastatic Breast Cancer: - Recent progression with new regimen initiated Cholecystitis: - Unable to further work-up given her habitual size - GI and Gen Surg are following Acute Respiratory Insufficiency: - Pulmonary has been asked to further evaluate - POtential compoenent of shunting from liver failure Increased Liver Function: - MOnitor COags and labs daily, vit K if needed PLan: - Monitor Liver function, CBC, and COags daily - Await MRCP/MRIWill hold Verzenio at this time and await MRI/MRCP INR 1.9 - ghassan k 5mg ordered Lactulose initiated
--- NOTE | 2020-09-19 16:56 | P.PN ---
Subjective Progress Note Date: 09/19/20 Principal diagnosis: Hyperbilirubinemia, cholelithiasis This is a 65-year-old female with a history of metastatic breast cancer diagnosed a year ago with progression in the last month. She's been on oral chemotherapy with medication change about 3-4 weeks ago. She presented to the hospital with painless jaundice with a bilirubin of 10 and new onset ascites. Plan was for the patient to get in MRI of the liver with MRCP, however patient body habitus was too large for the MRI machine. Plan is for open MRI. Patient denies any abdominal pain, nausea, or vomiting. She denies any fevers or chills. Bilirubin continues to increase and is at 12.6 today. Oncology is following patient closely. Objective - Vital Signs Vital signs: Vital Signs Temp 98.3 F 09/19/20 07:30 Pulse 101 H 09/19/20 07:30 Resp 18 09/19/20 07:30 BP 106/61 09/19/20 07:30 Pulse Ox 93 L 09/19/20 07:30 Intake & Output 09/18/20 09/19/20 09/19/20 18:59 06:59 18:59 Other: Voiding Method Bedside Commode Bedside Commode Bedside Commode # Voids 2 2 - Exam General appearance: The patient is alert, oriented, appears in no acute distress. Obese. HET: Head is normocephalic and atraumatic. Conjunctiva pink. Sclera icteric.. Neck: Supple without lymphadenopathy. Abdomen: Soft, obese, upper abdominal tenderness, nondistended with bowel sounds. No guarding or rigidity. Extremities: Normal skin color and turgor. No pedal edema Skin: No rashes, jaundice Neurological: No focal deficits. Alert and oriented 3. - Labs CBC & Chem 7: 09/19/20 07:12 09/19/20 07:12 Labs: Abnormal Lab Results - Last 24 Hours (Table) 09/18/20 09/18/20 09/18/20 Range/Units 15:54 15:54 15:54 WBC (3.8-10.6) k/uL RBC 2.78 L (3.80-5.40) m/uL Hgb 10.5 L (11.4-16.0) gm/dL Hct (34.0-46.0) % MCV 123.3 H (80.0-100.0) fL MCH 37.9 H (25.0-35.0) pg MCHC 30.8 L (31.0-37.0) g/dL RDW 20.6 H (11.5-15.5) % Plt Count 135 L (150-450) k/uL Lymphocytes # 5.7 H (1.0-4.8) k/uL Lymphocytes # (Manual) 5.35 H (1.0-4.8) k/uL Monocytes # 1.5 H (0-1.0) k/uL Monocytes # (Manual) (0-1.0) k/uL Basophils # 0.6 H (0-0.2) k/uL Metamyelocytes # (Man) 0.10 H (0) k/uL Myelocytes # (Manual) (0) k/uL Nucleated RBCs 54 H (0-0) /100 WBC Macrocytosis Marked A PT 19.0 H (9.0-12.0) sec INR 1.9 H (<1.2) Sodium 132 L (137-145) mmol/L Potassium 5.2 H (3.5-5.1) mmol/L Carbon Dioxide 21 L (22-30) mmol/L Glucose 122 H (74-99) mg/dL Total Bilirubin 11.0 H (0.2-1.3) mg/dL AST 247 H (14-36) U/L ALT 51 H (4-34) U/L Total Protein 6.1 L (6.3-8.2) g/dL Albumin 3.0 L (3.5-5.0) g/dL 09/19/20 09/19/20 09/19/20 Range/Units 07:12 07:12 07:12 WBC 14.9 H (3.8-10.6) k/uL RBC 2.68 L (3.80-5.40) m/uL Hgb 10.3 L (11.4-16.0) gm/dL Hct 32.6 L (34.0-46.0) % MCV 121.9 H (80.0-100.0) fL MCH 38.6 H (25.0-35.0) pg MCHC (31.0-37.0) g/dL RDW 20.9 H (11.5-15.5) % Plt Count 136 L (150-450) k/uL Lymphocytes # (1.0-4.8) k/uL Lymphocytes # (Manual) 4.92 H (1.0-4.8) k/uL Monocytes # (0-1.0) k/uL Monocytes # (Manual) 1.79 H (0-1.0) k/uL Basophils # (0-0.2) k/uL Metamyelocytes # (Man) 0.15 H (0) k/uL Myelocytes # (Manual) 0.45 H (0) k/uL Nucleated RBCs 27 H (0-0) /100 WBC Macrocytosis Marked A PT 17.8 H (9.0-12.0) sec INR 1.8 H (<1.2) Sodium 134 L (137-145) mmol/L Potassium (3.5-5.1) mmol/L Carbon Dioxide (22-30) mmol/L Glucose 106 H (74-99) mg/dL Total Bilirubin 12.6 H (0.2-1.3) mg/dL AST 245 H (14-36) U/L ALT 53 H (4-34) U/L Total Protein 5.9 L (6.3-8.2) g/dL Albumin 2.8 L (3.5-5.0) g/dL Microbiology - Last 24 Hours (Table) 09/16/20 18:45 Blood Culture - Preliminary Blood No Growth after 48 hours Assessment and Plan (1) Hyperbilirubinemia Narrative/Plan: New onset jaundice with mild elevation of bilirubin that was initially detected a month ago. During this hospitalization and initial bilirubin up to 10.2 with bilirubin continuing to increase. Mild elevation of serum transaminases noted. CT of the abdomen did not show any evidence of biliary ductal dilation, however there was moderate amount of ascites noted and liver appeared normal. Ultrasound of the abdomen did not show any evidence of biliary ductal dilation either. Patient was scheduled for MRCP however was unable to complete exam due to body habitus. Open MRI MRCP has been ordered. Patient is scheduled to go to [facility] in 2 days. At this time unclear if we are dealing with intrahepatic cholestasis secondary to medications from recent chemotherapy or if there is a component of obstructive jaundice from metastatic breast cancer. Current Visit: Yes Status: Acute Code(s): E80.6 - OTHER DISORDERS OF BILIRUBIN METABOLISM SNOMED Code(s): 11786547 (2) Ascites Current Visit: Yes Status: Acute Code(s): R18.8 - OTHER ASCITES SNOMED Code(s): 638260108 (3) Generalized weakness Current Visit: Yes Status: Acute Code(s): R53.1 - WEAKNESS SNOMED Code(s): 28156248 (4) Metastatic breast cancer Narrative/Plan: Oncology following closely Current Visit: Yes Status: Acute Code(s): C50.919 - MALIGNANT NEOPLASM OF UNSP SITE OF UNSPECIFIED FEMALE BREAST SNOMED Code(s): 458287403 Plan: 1. MRI liver/MRCP ordered, patient awaiting to have open MRI 2. Continue symptomatic and supportive care 3. Patient may have regular diet 4. Daily CMP 5. Repeat PT/INR 6. Paracentesis ordered with fluid studies including cytology Thank you for this consultation, we will continue to follow Dr. J Carlos Pitts I agree with the dictator's note, documented as a scribe by Ligia Cruz.
--- NOTE | 2020-09-19 18:44 | ECHOF ---
Referral Reason:Assess LV function MEASUREMENTS -------- HEIGHT: 152.4 cm WEIGHT: 113.4 kg BP: 94/58 IVSd: 0.8 cm (0.6 - 1.1) LVIDd: 4.2 cm (3.9 - 5.3) LVPWd: 1.4 cm (0.6 - 1.1) EDV(Teich): 80 ml IVSs: 1.3 cm LVIDs: 3.3 cm LVPWs: 1.1 cm %IVS Thck: 64 % ESV(Teich): 43 ml EF(Teich): 46 % %FS: 23 % SV(Teich): 37 ml LA Diam: 4.2 cm (2.7 - 3.8) RVIDd: 2.9 cm (< 3.3) LALs A4C: 4.8 cm LAAs A4C: 17.7 cm LAESV A-L A4C: 55 ml LAESV MOD A4C: 53 ml LALs A2C: 4.9 cm LAAs A2C: 18.5 cm LAESV A-L A2C: 60 ml LAESV MOD A2C: 56 ml LAESV(A-L): 58 ml LAESV Index (A-L): 28.26 ml/m Ao Diam: 2.5 cm (2.0 - 3.7) LA Diam: 4.5 cm (2.7 - 3.8) AV Cusp: 1.8 cm (1.5 - 2.6) EPSS: 0.3 cm MV E Josafat: 1.13 m/s MV DecT: 163 ms MV Dec Anderson: 6.9 m/s MV A Josafat: 1.03 m/s MV E/A Ratio: 1.09 MV PHT: 47 ms LVOT Vmax: 1.44 m/s LVOT maxP.31 mmHg LVOT Vmax: 1.53 m/s LVOT Vmean: 1.05 m/s LVOT maxP.41 mmHg LVOT meanP.03 mmHg LVOT Env.Ti: 277 ms LVOT VTI: 29.0 cm AV Vmax: 2.29 m/s AV maxP.90 mmHg AV Vmax: 2.16 m/s AV Vmean: 1.35 m/s AV maxP.69 mmHg AV meanP.41 mmHg AV Env.Ti: 263 ms AV VTI: 39.4 cm TR Vmax: 3.22 m/s TR maxP.54 mmHg RAP: 10.00 mmHg RVSP: 51.54 mmHg MV EF SLOPE: 78.62 mm/s (70 - 150) MV EXCURSION: 23.60 mm (> 18.000) FINDINGS -------- Sinus rhythm. This was a technically good study. LV size, wall thickness and systolic function are normal, with an EF greater than 55%. The left david tricular size is normal. The right ventricle is normal in size. LA is midly dilated 29-33ml/m2. The right atrial size is normal. There is mild aortic stenosis present. Peak/mean gradient across the Aortic Valve is 21.69mmHg / 10 .41mmHg. Mild mitral annular calcification present. Mild mitral regurgitation is present. Mild tricuspid regurgitation present. There is moderate pulmonary hypertension. The right ventric ular systolic pressure, as measured by Doppler, is 51.54mmHg. There is no pulmonic regurgitation present. There is no pericardial effusion. CONCLUSIONS -------- 1. LV size, wall thickness and systolic function are normal, with an EF greater than 55%. 2. The left ventricular size is normal. 3. The right ventricle is normal in size. 4. LA is midly dilated 29-33ml/m2. 5. The right atrial size is normal. 6. There is mild aortic stenosis present. 7. Peak/mean gradient across the Aortic Valve is 21.69mmHg / 10.41mmHg. 8. Mild mitral annular calcification present. 9. Mild mitral regurgitation is present. 10. Mild tricuspid regurgitation present. 11. There is moderate pulmonary hypertension. 12. The right ventricular systolic pressure, as measured by Doppler, is 51.54mmHg. 13. There is no pericardial effusion. ASSEMBLY LEADER: Yarelis Machuca RDCS
[2020-09-19] MEDS ORDERED: PHYTONADIONE 5 MG in SODIUM CHLORIDE 0.9% 50 ML IVPB STA (19:50)
[2020-09-19] MEDS: GABAPENTIN 100 MG CAP PO SCH (21:11)
[2020-09-19] MEDS: LACTULOSE 20 GM/30 ML CUP PO SCH (21:13)
[2020-09-19] MEDS: LETROZOLE 2.5 MG TAB PO SCH (21:17)
--- NOTE | 2020-09-19 23:09 | P.PN ---
Progress Note - Text Progress Note Date: 09/19/20 Chief Complaint: Increasing confusion History of presenting complaint: This is a 65-year-old patient who follows with Dr. Andrade. Oncologist Dr. De La Paz. Patient had presented to the ER with her son. He reported that the patient has been feeling weak for several days. Has known metastatic breast cancer with bone metastasis and is currently being treated with oral chemotherapy. Patient has been becoming increasingly confused recently. Patient has been becoming uns teady. Patient does live alone. Has a slight cough. Has chronic unchanged dyspnea. Patient slow to answer questions. Denies any headache or vision changes. No chest pain. Decreased appetite. No fever no chills. Admitted with possible pneumonia, acute metabolic encephalopathy. Could not have an MRI because of her habitus. Suspected cholecystitis. Fluoroscopy done for elevated right diaphragm negative for diaphragm paralysis. September 18: Patient unable to have MRI of the brain as she will not fit because of her weight. Tired Laying in bed. September 19: Laying in bed. Tired. Answer simple questions. Eating about 50%. Vitamin K And by hematology. Review of systems: Was done for constitutional, cardiovascular, GI, pulmonary. relevant finding as above Active Medications Benzocaine/Menthol (Benzocaine/Menthol Lozeng 1 Each Lozenge) 1 each MUCOUS MEM Q4HR PRN PRN Reason: Cough Last Admin: 09/18/20 21:48 Dose: 1 each Documented by: Calcium Carbonate/Glycine (Calcium Carbonate 500 Mg Chewable) 500 mg PO QID [facility] Last Admin: 09/19/20 21:11 Dose: 500 mg Documented by: Cholecalciferol (Cholecalciferol 25 Mcg (1000 Iu) Tablet) 125 mcg PO DAILY [facility] Last Admin: 09/19/20 07:17 Dose: 125 mcg Documented by: Cyanocobalamin (Cyanocobalamin 500 Mcg Tab) 1,000 mcg PO DAILY [facility] Last Admin: 09/19/20 07:18 Dose: 1,000 mcg Documented by: Gabapentin (Gabapentin 100 Mg Cap) 200 mg PO HS@2000 [facility] Last Admin: 09/19/20 21:11 Dose: 200 mg Documented by: Sodium Chloride (Saline 0.9%) 1,000 mls @ 80 mls/hr IV .[id number] [facility] Last Admin: 09/19/20 16:34 Dose: 80 mls/hr Documented by: Cefepime HCl 1 gm/ Sodium (Chloride) 50 mls @ 12.5 mls/hr IVPB Q12HR [facility] Last Admin: 09/19/20 21:51 Dose: 12.5 mls/hr Documented by: Lactulose (Lactulose 20 Gm/30 Ml Cup) 20 gm PO BID [facility] Last Admin: 09/19/20 21:13 Dose: 20 gm Documented by: Lisinopril (Lisinopril 20 Mg Tab) 20 mg PO DAILY@0900 [facility] Last Admin: 09/19/20 07:33 Dose: Not Given Documented by: Multivitamins (Multivitamins, Thera 1 Each Tab) 1 each PO DAILY [facility] Last Admin: 09/19/20 07:18 Dose: 1 each Documented by: Letrozole 2.5 Mg Tab 2.5 each PO HS@1999 [facility] Last Admin: 09/19/20 21:17 Dose: Not Given Documented by: Oxybutynin Chloride (Oxybutynin 10 Mg Tab.Er.24) 10 mg PO DAILY@0900 [facility] Last Admin: 09/19/20 07:19 Dose: 10 mg Documented by: Past medical history to include: Metastatic breast cancer with metastases to the bone on oral chemotherapy, hypertension, hyperlipidemia, DJD, Social history: Remote history of smoking. No alcohol. Lives alone. Family history: Cancer Physical examination: VITAL SIGNS: 98, 104, 17, 115 x 16 6, 95% room air GENERAL: BMI 47.2, laying in bed, slightly lethargic but able to answer questions EYES: Pupils equal. Conjunctiva normal. HEENT: External appearance of nose and ears normal, oral cavity grossly normal. NECK: JVD not raised; masses not palpable. HEART: First and second heart sounds are normal; no edema. LUNGS: Respiratory rate increased decreased breath sounds. ABDOMEN: Soft, right upper quadrant tenderness,, liver spleen not palpable, no masses palpable. PSYCH: Patient able to answer simple questions MUSCULAR skeletal: Evidence of OA INVESTIGATIONS, reviewed in the clinical context: September 19: WBC 14.9 and globin 10.3 platelets 136 potassium 5 total bilirubin 12.6 2-D echocardiogram: EF greater than 55%. No wall motion up to monitor. High resolution CT chest: Mild pulmonary interstitial infiltrates. Improved September 18: WBC 10.1 hemoglobin 10.5 platelets 135 potassium 5.2 creatinine 0.71 AST 247 ALT 51 Pro-calcitonin 0.47 CA 15-3 antigen: 1171 CA 27-29 1854 vitamin B12 greater than 4000 WBC 10 hemoglobin 9.8 MCV 125 platelets 113 potassium 4.6 creatinine 0.84 Total bilirubin 9.6 AST 18T ALT 43 alkaline phosphatase 98 albumin 2.7 Admission labs: Potassium 5.4 lactic acid 2.2. Total bilirubin 10.2 AST 205 ALT 43 UA positive for small leukoesterase, 10 WBC COVID 19 negative EKG tracing personally reviewed by me-normal sinus rhythm, nonspecific ST segment changes Gallbladder ultrasound: per lobe liver eyesight chronic contents with human with sludge and with hyperechoic focus in the fundus abnormally thickened wall fluid noted surrounding fundus. CT abdomen fundus: Moderate abdominal ascites. Gallstones. Chest CTA: Negative for PE. New pulmonary interstitial infiltrates CT brain: Encephalomyelitis year no midline shift. Chest x-ray film personally reviewed by me-elevated right diaphragm Assessment and plan: -Acute metabolic encephalopathy: Slow to respond Patient presents with altered mental status, lethargic last few days. No fever no chills. Patient has encephalomalacia on the computed tomography scan. unable to have MRI of the brain. -Possible pneumonia, suspect gram-negative organism On IV cefepime -Metastatic breast cancer with bone metastases On oral chemotherapy. Consult oncology -Morbid obesity BMI 47.2 -Chronic shortness of breath. Multifactorial including possible fibrosis, obesity hypoventilation syndrome -Thrombocytopenia, likely secondary to underlying malignancy and/or chemotherapy Follow CBC -Essential hypertension Prinivil -Peripheral neuropathy On Neurontin -Vitamin B-12 deficiency B12 supplement -Chronic urinary stress incontinence On oxybutynin -Possible acute on chronic cholecystitis slow to respond Follow with surgery. IV cefepime. Continue IV cefepime. Add DuoNeb. other medications to continue. Vitamin K given. Prognosis guarded.
[2020-09-20] MEDS: SODIUM CHLORIDE 0.9% 1,000 ML IV SCH ×3 (02:26→23:58)
[2020-09-20] MEDS: MULTIVITAMINS, THERA 1 EACH TAB PO SCH (07:02)
[2020-09-20] MEDS: CALCIUM CARBONATE 500 MG CHEWABLE PO SCH ×4 (07:02→19:36)
[2020-09-20] MEDS: CHOLECALCIFEROL 25 MCG (1000 IU) TABLET PO SCH (07:02)
[2020-09-20] MEDS: CYANOCOBALAMIN 500 MCG TAB PO SCH (07:02)
[2020-09-20] MEDS: CEFEPIME 1 GM in SODIUM CHLORIDE 0.9% 50 ML IVPB SCH ×2 (07:03→19:36)
[2020-09-20] MEDS: lisinopriL 20 MG TAB PO SCH (07:03)
[2020-09-20] MEDS: OXYBUTYNIN 10 MG TAB.ER.24 PO SCH (07:03)
[2020-09-20] MEDS: LACTULOSE 20 GM/30 ML CUP PO SCH ×2 (07:04→19:36)
[2020-09-20 10:14] LABS: African American GFR (CKD) 104.6 (60.0-200.0); Albumin 2.9 g/dL (3.80-4.90); Albumin/Globulin Ratio 1.21 (1.60-3.17); Anion Gap 8.2 mmol/L (4.00-12.00); BUN/Creat Ratio 22.86 Ratio (12.00-20.00); Calcium 9.2 mg/dL (8.7-10.3); Carbon Dioxide 17.8 mmol/L (21.6-31.8); Globulin 2.4 g/dL (1.6-3.3); Non-African American GFR(CKD) 90.3 (60.0-200.0); Potassium 4.5 mmol/L (3.5-5.5); Total Bilirubin 15.1 mg/dL (0.2-1.2); Total Protein 5.3 g/dL (6.2-8.2)
[2020-09-20 10:38] LABS: HCT 30.4 % (37.2-46.3); HGB 9.7 g/dL (12.0-15.0); MCH 40.1 pg (27.0-32.0); MCHC 31.9 g/dL (32.0-37.0); MCV 125.6 fL (80.0-97.0); Mean Platelet Volume 11.4 fL (9.5-12.2); Platelet Count 127 X 10*3/uL (140-440); RBC 2.42 X 10*6/uL (4.10-5.20); RDW 21.7 % (11.5-14.5); WBC 19.47 X 10*3/uL (4.50-10.00)
[2020-09-20 10:39] LABS: Acanthocytes 2+; Basophils # (M) 0.19 X 10*3/uL (0.00-0.10); Eosinophils # (M) 0.39 X 10*3/uL (0.04-0.35); Lymphocytes # (M) 1.95 X 10*3/uL (0.90-5.00); Macrocytosis (M) 3+; Metamyelocytes % 2 % (0-0); Monocytes # (M) 0.97 X 10*3/uL (0.20-1.00); Myelocytes % 1 % (0-0); Neutrophils # (M) 15.38 X 10*3/uL (2.00-8.90); Neutrophils % (M) 79 %; Polychromasia 2+; Schistocytes 1+
[2020-09-20 10:44] LABS: INR 1.57 (0.90-1.11); Prothrombin Time 16.6 sec (9.9-11.9)
--- NOTE | 2020-09-20 12:50 | P.PN ---
<GloriaNichelle - Last Filed: 09/20/20 12:39> Subjective Progress Note Date: 09/20/20 CHIEF COMPLAINT: Cholecystitis HISTORY OF PRESENT ILLNESS: Patient is sitting up at bedside chair. Surgical service is following regards to her cholecystitis. Patient is unable to have MRCP completed due to her body habitus. actuary manager is working on setting her up to have the MRCP done at [facility] in a couple of days. Patient does complain of right upper quadrant pain and some nausea. No vomiting. Afebrile. She did have some tachycardia now improved. WBC is up at 19.47 hemoglobin 9.7 total bilirubin is up from 12.6-15.1 AST is elevated at 268 and ALT 66 INR 1.57 Interventional radiology consulted for paracentesis today PHYSICAL EXAM: VITAL SIGNS: Reviewed. GENERAL: Well-developed in no acute distress. HEENT: No sclera icterus. Extraocular movements grossly intact. Moist buccal mucosa. Head is atraumatic, normocephalic. ABDOMEN: Soft. Mildly distended. Right upper quadrant tenderness NEUROLOGIC: Alert and oriented. Cranial nerves II through XII grossly intact. ASSESSMENT: 1. Cholecystitis 2. Abdominal ascites 3. Hyperbilirubinemia and elevated LFTs followed by GI service 4. Metastatic breast cancer PLAN: -Patient scheduled for paracentesis today -Patient is awaiting open MRI. Unable to have MRCP due to body habitus -Continue antibiotics Physician Advertising Clerk note has been reviewed by physician. Signing provider agrees with the documented findings, assessment, and plan of care. Objective - Vital Signs Vital signs: Vital Signs Temp 97.7 F 09/20/20 07:12 Pulse 95 09/20/20 07:12 Resp 20 09/20/20 07:15 BP 107/68 09/20/20 07:12 Pulse Ox 98 09/20/20 07:12 Intake & Output 09/19/20 09/20/20 09/20/20 18:59 06:59 18:59 Other: Voiding Method Bedside Commode Bedside Commode Bedside Commode # Voids 2 1 # Bowel Movements 1 - Labs CBC & Chem 7: 09/20/20 05:37 09/20/20 05:37 Labs: Abnormal Lab Results - Last 24 Hours (Table) 09/19/20 09/20/20 09/20/20 Range/Units 07:12 05:37 05:37 WBC 14.9 H 19.47 H (3.8-10.6) k/uL RBC 2.68 L 2.42 L (3.80-5.40) m/uL Hgb 10.3 L 9.7 L (11.4-16.0) gm/dL Hct 32.6 L 30.4 L (34.0-46.0) % MCV 121.9 H 125.6 H (80.0-100.0) fL MCH 38.6 H 40.1 H (25.0-35.0) pg MCHC 31.9 L (32.0-37.0) g/dL RDW 20.9 H 21.7 H (11.5-15.5) % Plt Count 136 L 127 L (150-450) k/uL Plt Count Comment DECREASED A Absolute Nucleated RBC 7.59 H (0.00-0.00) X 10*3/uL Metamyelocytes % 2 H (0-0) % Myelocytes % 1 H (0-0) % Neutrophils # (Manual) 15.38 H (2.00-8.90) X 10*3/uL Lymphocytes # (Manual) 4.92 H (1.0-4.8) k/uL Monocytes # (Manual) 1.79 H (0-1.0) k/uL Eosinophils # (Manual) 0.39 H (0.04-0.35) X 10*3/uL Basophils # (Manual) 0.19 H (0.00-0.10) X 10*3/uL Metamyelocytes # (Man) 0.15 H (0) k/uL Myelocytes # (Manual) 0.45 H (0) k/uL Nucleated RBCs 27 H (0-0) /100 WBC NRBC/100 WBC Diff 39.0 H (0.0-0.0) /100 WBCS Pathologist Review See comment A Macrocytosis Marked A PT (9.9-11.9) sec INR (0.90-1.11) Sodium 134 L (135-145) mmol/L Carbon Dioxide 17.8 L (21.6-31.8) mmol/L BUN/Creatinine Ratio 22.86 H (12.00-20.00) Ratio Total Bilirubin 15.1 H* (0.2-1.2) mg/dL AST 268 H (13-35) U/L ALT 66 H (8-44) U/L Total Protein 5.3 L (6.2-8.2) g/dL Albumin 2.90 L (3.80-4.90) g/dL Albumin/Globulin Ratio 1.21 L (1.60-3.17) g/dL 09/20/ Range/Units 05:37 WBC (3.8-10.6) k/uL RBC (3.80-5.40) m/uL Hgb (11.4-16.0) gm/dL Hct (34.0-46.0) % MCV (80.0-100.0) fL MCH (25.0-35.0) pg MCHC (32.0-37.0) g/dL RDW (11.5-15.5) % Plt Count (150-450) k/uL Plt Count Comment Absolute Nucleated RBC (0.00-0.00) X 10*3/uL Metamyelocytes % (0-0) % Myelocytes % (0-0) % Neutrophils # (Manual) (2.00-8.90) X 10*3/uL Lymphocytes # (Manual) (1.0-4.8) k/uL Monocytes # (Manual) (0-1.0) k/uL Eosinophils # (Manual) (0.04-0.35) X 10*3/uL Basophils # (Manual) (0.00-0.10) X 10*3/uL Metamyelocytes # (Man) (0) k/uL Myelocytes # (Manual) (0) k/uL Nucleated RBCs (0-0) /100 WBC NRBC/100 WBC Diff (0.0-0.0) /100 WBCS Pathologist Review Macrocytosis PT 16.6 H (9.9-11.9) sec INR 1.57 H (0.90-1.11) Sodium (135-145) mmol/L Carbon Dioxide (21.6-31.8) mmol/L BUN/Creatinine Ratio (12.00-20.00) Ratio Total Bilirubin (0.2-1.2) mg/dL AST (13-35) U/L ALT (8-44) U/L Total Protein (6.2-8.2) g/dL Albumin (3.80-4.90) g/dL Albumin/Globulin Ratio (1.60-3.17) g/dL Microbiology - Last 24 Hours (Table) 09/16/20 18:45 Blood Culture - Preliminary Blood No Growth after 72 hours <Soy Gloverony - Last Filed: 09/20/20 15:01> Subjective As above. Denies abdominal pain when asked. Has mild discomfort diffusely. L abs show elevated bilirubin still at this point. Await paracentesis today. Await MRCP. Objective - Vital Signs Vital signs: Vital Signs Temp 98.1 F 09/20/20 13:31 Pulse 100 09/20/20 13:31 Resp 18 09/20/20 13:31 BP 117/65 09/20/20 13:31 Pulse Ox 90 L 09/20/20 13:31 Intake & Output 09/19/20 09/20/20 09/20/20 18:59 06:59 18:59 Other: Voiding Method Bedside Commode Bedside Commode Bedside Commode # Voids 2 1 # Bowel Movements 1 - Labs CBC & Chem 7: 09/20/20 05:37 09/20/20 05:37 Labs: Abnormal Lab Results - Last 24 Hours (Table) 09/20/20 09/20/20 09/20/20 Range/Units 05:37 05:37 05:37 WBC 19.47 H (4.50-10.00) X 10*3/uL RBC 2.42 L (4.10-5.20) X 10*6/uL Hgb 9.7 L (12.0-15.0) g/dL Hct 30.4 L (37.2-46.3) % MCV 125.6 H (80.0-97.0) fL MCH 40.1 H (27.0-32.0) pg MCHC 31.9 L (32.0-37.0) g/dL RDW 21.7 H (11.5-14.5) % Plt Count 127 L (140-440) X 10*3/uL Plt Count Comment DECREASED A Absolute Nucleated RBC 7.59 H (0.00-0.00) X 10*3/uL Metamyelocytes % 2 H (0-0) % Myelocytes % 1 H (0-0) % Neutrophils # (Manual) 15.38 H (2.00-8.90) X 10*3/uL Eosinophils # (Manual) 0.39 H (0.04-0.35) X 10*3/uL Basophils # (Manual) 0.19 H (0.00-0.10) X 10*3/uL NRBC/100 WBC Diff 39.0 H (0.0-0.0) /100 WBCS PT 16.6 H (9.9-11.9) sec INR 1.57 H (0.90-1.11) Sodium 134 L (135-145) mmol/L Carbon Dioxide 17.8 L (21.6-31.8) mmol/L BUN/Creatinine Ratio 22.86 H (12.00-20.00) Ratio Total Bilirubin 15.1 H* (0.2-1.2) mg/dL AST 268 H (13-35) U/L ALT 66 H (8-44) U/L Total Protein 5.3 L (6.2-8.2) g/dL Albumin 2.90 L (3.80-4.90) g/dL Albumin/Globulin Ratio 1.21 L (1.60-3.17) g/dL Microbiology - Last 24 Hours (Table) 09/16/20 18:45 Blood Culture - Preliminary Blood No Growth after 72 hours Assessment and Plan (1) Cholecystitis Current Visit: Yes Status: Acute Code(s): K81.9 - CHOLECYSTITIS, UNSPECIFIED SNOMED Code(s): 76243797
--- NOTE | 2020-09-20 13:05 | P.PN ---
Subjective Progress Note Date: 09/20/20 Principal diagnosis: Hyperbilirubinemia, cholelithiasis This is a 65-year-old female with a history of metastatic breast cancer diagnosed a year ago with progression in the last month. She's been on oral chemotherapy with medication change about 3-4 weeks ago. She presented to the hospital with painless jaundice with a bilirubin of 10 and new onset ascites. Plan was for the patient to get in MRI of the liver with MRCP, however patient body habitus was too large for the MRI machine. Plan is for open MRI at [facility] tomorrow. Patient complaining of upper abdominal pain, denies any nausea or vomiting, is afebrile. Total bilirubin increased 12.6 to 15.1, alkaline phosphatase 1:15, AST 268, ALT 66 WBC 19.4. Patient is scheduled to undergo paracentesis with fluid studies. Oncology is following patient closely. Objective - Vital Signs Vital signs: Vital Signs Temp 97.7 F 09/20/20 07:12 Pulse 95 09/20/20 07:12 Resp 20 09/20/20 07:15 BP 107/68 09/20/20 07:12 Pulse Ox 98 09/20/20 07:12 Intake & Output 09/19/20 09/20/20 09/20/20 18:59 06:59 18:59 Other: Voiding Method Bedside Commode Bedside Commode Bedside Commode # Voids 2 1 # Bowel Movements 1 - Exam General appearance: The patient is alert, oriented, appears in no acute distress. Obese. HET: Head is normocephalic and atraumatic. Conjunctiva pink. Sclera icteric.. Neck: Supple without lymphadenopathy. Abdomen: Soft, obese, upper abdominal tenderness, nondistended with bowel sounds. No guarding or rigidity. Extremities: Normal skin color and turgor. No pedal edema Skin: No rashes, jaundice Neurological: No focal deficits. Alert and oriented 3. - Labs CBC & Chem 7: 09/20/20 05:37 09/20/20 05:37 Labs: Abnormal Lab Results - Last 24 Hours (Table) 09/19/20 Range/Units 07:12 WBC 14.9 H (3.8-10.6) k/uL RBC 2.68 L (3.80-5.40) m/uL Hgb 10.3 L (11.4-16.0) gm/dL Hct 32.6 L (34.0-46.0) % MCV 121.9 H (80.0-100.0) fL MCH 38.6 H (25.0-35.0) pg RDW 20.9 H (11.5-15.5) % Plt Count 136 L (150-450) k/uL Lymphocytes # (Manual) 4.92 H (1.0-4.8) k/uL Monocytes # (Manual) 1.79 H (0-1.0) k/uL Metamyelocytes # (Man) 0.15 H (0) k/uL Myelocytes # (Manual) 0.45 H (0) k/uL Nucleated RBCs 27 H (0-0) /100 WBC Pathologist Review See comment A Macrocytosis Marked A Microbiology - Last 24 Hours (Table) 09/16/20 18:45 Blood Culture - Preliminary Blood No Growth after 72 hours Assessment and Plan (1) Hyperbilirubinemia Narrative/Plan: New onset jaundice with mild elevation of bilirubin that was initially detected a month ago. During this hospitalization and initial bilirubin up to 10.2 with bilirubin continuing to increase. Mild elevation of serum transaminases noted. CT of the abdomen did not show any evidence of biliary ductal dilation, however there was moderate amount of ascites noted and liver appeared normal. Ultrasound of the abdomen did not show any evidence of biliary ductal dilation either. Patient was scheduled for MRCP however was unable to complete exam due to body habitus. Open MRI MRCP has been ordered. Patient is scheduled to go to [facility] in 2 days. At this time unclear if we are dealing with intrahepatic cholestasis secondary to medications from recent chemotherapy or if there is a component of obstructive jaundice from metastatic breast cancer. Current Visit: Yes Status: Acute Code(s): E80.6 - OTHER DISORDERS OF BILIRUBIN METABOLISM SNOMED Code(s): 83337070 (2) Ascites Current Visit: Yes Status: Acute Code(s): R18.8 - OTHER ASCITES SNOMED Code(s): 918735374 (3) Generalized weakness Current Visit: Yes Status: Acute Code(s): R53.1 - WEAKNESS SNOMED Code(s): 15813284 (4) Metastatic breast cancer Narrative/Plan: Oncology following closely Current Visit: Yes Status: Acute Code(s): C50.919 - MALIGNANT NEOPLASM OF UNSP SITE OF UNSPECIFIED FEMALE BREAST SNOMED Code(s): 811913420 Plan: 1. MRI liver/MRCP ordered, patient awaiting to have open MRI 2. Continue symptomatic and supportive care 3. Patient may have regular diet 4. Daily CMP 5. Repeat PT/INR 6. Paracentesis ordered with fluid studies including cytology 7. Further recommendations to follow Thank you for this consultation, we will continue to follow Dr. J Carlos Pitts I agree with the dictator's note, documented as a scribe by Ligia Cruz.
--- NOTE | 2020-09-20 16:22 | P.PN ---
Subjective Progress Note Date: 09/20/20 Principal diagnosis: Metastatic Breast Cancer Still awaiting MRI, hoping to be done haresh Patient has a mutation that can be used in treatment options but need to confirm if metastatic liver disease versus other. TOtal Bili is increased further today, continues on lactulose. Objective - Vital Signs Vital signs: Vital Signs Temp 98.1 F 09/20/20 13:31 Pulse 100 09/20/20 13:31 Resp 18 09/20/20 13:31 BP 117/65 09/20/20 13:31 Pulse Ox 90 L 09/20/20 13:31 Intake & Output 09/19/20 09/20/20 09/20/20 18:59 06:59 18:59 Other: Voiding Method Bedside Commode Bedside Commode Bedside Commode # Voids 2 1 # Bowel Movements 1 - Exam Constitutional General appearance: cooperative, morbidly obese - EENT Eyes: scleral icterus ENT: hard of hearing - Neck Neck: normal ROM - Respiratory Respiratory: bilateral: diminished (Bilateral Bases) - Cardiovascular Rhythm: regularly irregular - Gastrointestinal General gastrointestinal: soft, tenderness - Integumentary Integumentary: jaundiced - Neurologic non focal - Musculoskeletal Musculoskeletal: generalized weakness - Psychiatric Lethargic. Psychiatric: A&O x's 3 - Labs CBC & Chem 7: 09/20/20 05:37 09/20/20 05:37 Labs: Abnormal Lab Results - Last 24 Hours (Table) 09/20/20 09/20/20 09/20/20 Range/Units 05:37 05:37 05:37 WBC 19.47 H (4.50-10.00) X 10*3/uL RBC 2.42 L (4.10-5.20) X 10*6/uL Hgb 9.7 L (12.0-15.0) g/dL Hct 30.4 L (37.2-46.3) % MCV 125.6 H (80.0-97.0) fL MCH 40.1 H (27.0-32.0) pg MCHC 31.9 L (32.0-37.0) g/dL RDW 21.7 H (11.5-14.5) % Plt Count 127 L (140-440) X 10*3/uL Plt Count Comment DECREASED A Absolute Nucleated RBC 7.59 H (0.00-0.00) X 10*3/uL Metamyelocytes % 2 H (0-0) % Myelocytes % 1 H (0-0) % Neutrophils # (Manual) 15.38 H (2.00-8.90) X 10*3/uL Eosinophils # (Manual) 0.39 H (0.04-0.35) X 10*3/uL Basophils # (Manual) 0.19 H (0.00-0.10) X 10*3/uL NRBC/100 WBC Diff 39.0 H (0.0-0.0) /100 WBCS PT 16.6 H (9.9-11.9) sec INR 1.57 H (0.90-1.11) Sodium 134 L (135-145) mmol/L Carbon Dioxide 17.8 L (21.6-31.8) mmol/L BUN/Creatinine Ratio 22.86 H (12.00-20.00) Ratio Total Bilirubin 15.1 H* (0.2-1.2) mg/dL AST 268 H (13-35) U/L ALT 66 H (8-44) U/L Total Protein 5.3 L (6.2-8.2) g/dL Albumin 2.90 L (3.80-4.90) g/dL Albumin/Globulin Ratio 1.21 L (1.60-3.17) g/dL Microbiology - Last 24 Hours (Table) 09/16/20 18:45 Blood Culture - Preliminary Blood No Growth after 72 hours Assessment and Plan (1) Metastatic breast cancer Current Visit: Yes Status: Acute Code(s): C50.919 - MALIGNANT NEOPLASM OF UNSP SITE OF UNSPECIFIED FEMALE BREAST SNOMED Code(s): 978296263 (2) Cholecystitis Current Visit: Yes Status: Acute Code(s): K81.9 - CHOLECYSTITIS, UNSPECIFIED SNOMED Code(s): 80707376 (3) Generalized weakness Current Visit: Yes Status: Acute Code(s): R53.1 - WEAKNESS SNOMED Code(s): 90066646 (4) Hyperbilirubinemia Current Visit: Yes Status: Acute Code(s): E80.6 - OTHER DISORDERS OF BILIRUBIN METABOLISM SNOMED Code(s): 83906687 Plan: Assessment and Recommendations: Metastatic Breast Cancer: - Recent progression with new regimen initiated - She does have more options for treatment although at this time we need MRI to determine plan of care. Cholecystitis versus metastatic progression to liver - Unable to further work-up given her habitual size - GI and Gen Surg are following Acute Respiratory Insufficiency: - Pulmonary has been asked to further evaluate - POtential compoenent of shunting from liver failure Increased Liver Function: - MOnitor COags and labs daily, vit K if needed Metabolic Encephalopathy: - COntinue on Lactulose PLan: - Monitor Liver function, CBC, and COags daily - Await MRCP/MRIWill hold Verzenio at this time and await MRI/MRCP INR 1.5, Status post ghassan k 5mg 11/20 Recheck daily Lactulose to continue Physician Attest: I have completed the full history and physical and agree with above dictation, dictated as a scribe.
--- NOTE | 2020-09-20 18:16 | P.PN ---
Progress Note - Text Progress Note Date: 09/20/20 Chief Complaint: Increasing confusion History of presenting complaint: This is a 65-year-old patient who follows with Dr. Andrade. Oncologist Dr. De La Paz. Patient had presented to the ER with her son. He reported that the patient has been feeling weak for several days. Has known metastatic breast cancer with bone metastasis and is currently being treated with oral chemotherapy. Patient has been becoming increasingly confused recently. Patient has been becoming uns teady. Patient does live alone. Has a slight cough. Has chronic unchanged dyspnea. Patient slow to answer questions. Denies any headache or vision changes. No chest pain. Decreased appetite. No fever no chills. Admitted with possible pneumonia, acute metabolic encephalopathy. Could not have an MRI because of her habitus. Fluoroscopy done for elevated right diaphragm negative for diaphragm paralysis. Discussed with Dr. J Carlos Pitts: Patient has known breast cancer with metastatic to liver. Patient also has known cirrhosis from fatty liver. September 18: Patient unable to have MRI of the brain as she will not fit because of her weight. Tired Laying in bed. September 19: Laying in bed. Tired. Answer simple questions. Eating about 50%. Vitamin K given by hematology. September 20: reclining in a chair. Answer questions. Some right upper abdominal pain. No nausea vomiting. Oral intake fair. Discussed with Dr. Ojeda from general surgery: Not any surgical intervention at present time. Discussed with Dr. J Carlos Pitts from GI. She had early discuss care in detail with Dr. De La Paz from oncology.: Patient has known breast cancer with metastatic disease including liver. Also received immunotherapy. Patient has known cirrhosis. At the present time does not dilatation of ducts hence ERCP not indicated. Most likely this is liver decompensation acutely. Doubt cholecystitis. Also spoke to renal case manager. Open MRI possibly tomorrow or day after Review of systems: Was done for constitutional, cardiovascular, GI, pulmonary. relevant finding as above Active Medications Benzocaine/Menthol (Benzocaine/Menthol Lozeng 1 Each Lozenge) 1 each MUCOUS MEM Q4HR PRN PRN Reason: Cough Last Admin: 09/18/20 21:48 Dose: 1 each Documented by: Calcium Carbonate/Glycine (Calcium Carbonate 500 Mg Chewable) 500 mg PO QID [facility] Last Admin: 09/20/20 16:48 Dose: 500 mg Documented by: Cholecalciferol (Cholecalciferol 25 Mcg (1000 Iu) Tablet) 125 mcg PO DAILY [facility] Last Admin: 09/20/20 07:02 Dose: 125 mcg Documented by: Cyanocobalamin (Cyanocobalamin 500 Mcg Tab) 1,000 mcg PO DAILY [facility] Last Admin: 09/20/20 07:02 Dose: 1,000 mcg Documented by: Gabapentin (Gabapentin 100 Mg Cap) 200 mg PO HS@1999 [facility] Last Admin: 09/19/20 21:11 Dose: 200 mg Documented by: Sodium Chloride (Saline 0.9%) 1,000 mls @ 80 mls/hr IV .[id number] [facility] Last Admin: 09/20/20 04:57 Dose: 80 mls/hr Documented by: Cefepime HCl 1 gm/ Sodium (Chloride) 50 mls @ 12.5 mls/hr IVPB Q12HR [facility] Last Admin: 09/20/20 07:03 Dose: 12.5 mls/hr Documented by: Lactulose (Lactulose 20 Gm/30 Ml Cup) 20 gm PO BID [facility] Last Admin: 09/20/20 07:04 Dose: 20 gm Documented by: Lisinopril (Lisinopril 20 Mg Tab) 20 mg PO DAILY@0900 [facility] Last Admin: 09/20/20 07:03 Dose: Not Given Documented by: Multivitamins (Multivitamins, Thera 1 Each Tab) 1 each PO DAILY [facility] Last Admin: 09/20/20 07:02 Dose: 1 each Documented by: Letrozole 2.5 Mg Tab 2.5 each PO HS@1999 [facility] Last Admin: 09/19/20 21:17 Dose: Not Given Documented by: Oxybutynin Chloride (Oxybutynin 10 Mg Tab.Er.24) 10 mg PO DAILY@0900 [facility] Last Admin: 09/20/20 07:03 Dose: 10 mg Documented by: Past medical history to include: Metastatic breast cancer with metastases to the bone on oral chemotherapy, hypertension, hyperlipidemia, DJD, Social history: Remote history of smoking. No alcohol. Lives alone. Family history: Cancer Physical examination: VITAL SIGNS: 98.1, 100, 18, 117/65, 90% room air GENERAL: Reclining in a chair, awake, tired EYES: Pupils equal. Conjunctiva normal. HEENT: External appearance of nose and ears normal, oral cavity grossly normal. NECK: JVD not raised; masses not palpable. HEART: First and second heart sounds are normal; no edema. LUNGS: Respiratory rate increased decreased breath sounds. ABDOMEN: Soft, right upper quadrant tenderness, no guarding rigidity,, liver spleen not palpable, no masses palpable. PSYCH: Patient able to answer simple questions MUSCULAR skeletal: Evidence of OA INVESTIGATIONS, reviewed in the clinical context: September 20: WBC 19.4 hemoglobin 9.7 which is 127 INR 1.5 potassium 4.5 creatinine 0.7 total bilirubin 15.1 AST 268 ALT 66 September 19: WBC 14.9 and globin 10.3 platelets 136 potassium 5 total bilirubin 12.6 2-D echocardiogram: EF greater than 55%. No wall motion up to monitor. High resolution CT chest: Mild pulmonary interstitial infiltrates. Improved September 18: WBC 10.1 hemoglobin 10.5 platelets 135 potassium 5.2 creatinine 0.71 AST 247 ALT 51 Pro-calcitonin 0.47 CA 15-3 antigen: 1171 CA 27-29 1854 vitamin B12 greater than 4000 WBC 10 hemoglobin 9.8 MCV 125 platelets 113 potassium 4.6 creatinine 0.84 Total bilirubin 9.6 AST 18T ALT 43 alkaline phosphatase 98 albumin 2.7 Admission labs: Potassium 5.4 lactic acid 2.2. Total bilirubin 10.2 AST 205 ALT 43 UA positive for small leukoesterase, 10 WBC COVID 19 negative EKG tracing personally reviewed by me-normal sinus rhythm, nonspecific ST segment changes Gallbladder ultrasound: per lobe liver eyesight chronic contents with human with sludge and with hyperechoic focus in the fundus abnormally thickened wall fluid noted surrounding fundus. CT abdomen fundus: Moderate abdominal ascites. Gallstones. Chest CTA: Negative for PE. New pulmonary interstitial infiltrates CT brain: Encephalomyelitis year no midline shift. Chest x-ray film personally reviewed by me-elevated right diaphragm Assessment and plan: -Acute metabolic encephalopathy: Likely hepatic encephalopathy.: Slow to respond Patient on lactulose. -Possible pneumonia, suspect gram-negative organism On IV cefepime -Likely acute liver decompensation, multifactorial in the setting of underlying cirrhosis, metastatic disease and chemotherapy: Worsening Follow closely -Metastatic breast cancer with bone and liver metastases: With recent progression On oral chemotherapy. Relevant oncology -Morbid obesity BMI 47.2 -Chronic shortness of breath. Multifactorial including possible fibrosis, obesity hypoventilation syndrome -Thrombocytopenia, likely secondary to underlying malignancy and/or chemotherapy Follow CBC -Essential hypertension Prinivil -Peripheral neuropathy On Neurontin -Vitamin B-12 deficiency B12 supplement -Chronic urinary stress incontinence On oxybutynin -Less likely cholecystitis Total time spent today about an hour including 30 minutes of discussion; with Dr. J Carlos Ojeda. Discussed with Dr. Ojeda tomorrow to see if he needs to continue IV cefepime. Pending open MRI. Prognosis guarded. We'll follow with oncology
[2020-09-20] MEDS: LETROZOLE 2.5 MG TAB PO SCH (19:32)
[2020-09-20] MEDS: GABAPENTIN 100 MG CAP PO SCH (19:36)
[2020-09-21 06:38] LABS: INR 1.4 (<1.2); Prothrombin Time 14.3 sec (9.0-12.0)
[2020-09-21 06:39] LABS: ALT 69 U/L (4-34); AST 317 U/L (14-36); African American GFR (CKD) >90 (>60 ml/min/1.73 sqM); Albumin 2.8 g/dL (3.5-5.0); Albumin/Globulin Ratio 0.9; Alkaline Phosphatase 134 U/L (38-126); Anion Gap 4 mmol/L; Blood Urea Nitrogen 15 mg/dL (7-17); Calcium 10.6 mg/dL (8.4-10.2); Carbon Dioxide 22 mmol/L (22-30); Chloride 110 mmol/L (98-107); Glucose 104 mg/dL (74-99); Non-African American GFR(CKD) >90 (>60 ml/min/1.73 sqM); Potassium 4.9 mmol/L (3.5-5.1); Sodium 136 mmol/L (137-145); Total Protein 5.8 g/dL (6.3-8.2)
[2020-09-21 07:03] LABS: Anisocytosis Moderate; HCT 33.7 % (34.0-46.0); HGB 10.3 gm/dL (11.4-16.0); Hypochromasia Marked; MCH 38.1 pg (25.0-35.0); MCHC 30.6 g/dL (31.0-37.0); MCV 124.3 fL (80.0-100.0); Macrocytosis Marked; Mean Platelet Volume 10.8; Platelet Count 135 k/uL (150-450); RBC 2.71 m/uL (3.80-5.40); RDW 21.7 % (11.5-15.5); WBC 19.7 k/uL (3.8-10.6)
[2020-09-21 07:39] LABS: Total Bilirubin 16.1 mg/dL (0.2-1.3)
[2020-09-21] MEDS: LACTULOSE 20 GM/30 ML CUP PO SCH ×2 (08:33→21:40)
[2020-09-21] MEDS: OXYBUTYNIN 10 MG TAB.ER.24 PO SCH (08:33)
[2020-09-21] MEDS: CEFEPIME 1 GM in SODIUM CHLORIDE 0.9% 50 ML IVPB SCH ×2 (08:33→21:40)
[2020-09-21] MEDS: CHOLECALCIFEROL 25 MCG (1000 IU) TABLET PO SCH (08:33)
[2020-09-21] MEDS: CALCIUM CARBONATE 500 MG CHEWABLE PO SCH ×4 (08:33→21:40)
[2020-09-21] MEDS: lisinopriL 20 MG TAB PO SCH (08:33)
[2020-09-21] MEDS: MULTIVITAMINS, THERA 1 EACH TAB PO SCH (08:33)
[2020-09-21] MEDS: CYANOCOBALAMIN 500 MCG TAB PO SCH (08:33)
--- NOTE | 2020-09-21 11:24 | P.PN ---
<Nichelle Castro - Last Filed: 09/21/20 11:15> Subjective Progress Note Date: 09/21/20 CHIEF COMPLAINT: Cholecystitis HISTORY OF PRESENT ILLNESS: Patient is sitting up at bedside chair. Surgical service is following regards to her cholecystitis. Patient complains of some mild diffuse abdominal pain. Patient is unable to have MRCP completed due to her body habitus. Per onsite case manager [facility] does not have availability for another MRI machine. information systems security manager is again working on finding a place for patient to have her MRCP done. Patient is scheduled for paracentesis today. It is not exactly clear why it was not performed yesterday. White count continues to trend upwards 19.7 total bili trending upward 16.1 LFTs are elevated. PHYSICAL EXAM: VITAL SIGNS: Reviewed. GENERAL: Well-developed in no acute distress. HEENT: Positive sclera icterus. Extraocular movements grossly intact. Moist buccal mucosa. Head is atraumatic, normocephalic. ABDOMEN: Soft. Mildly distended. Diffuse tenderness with palpation NEUROLOGIC: Alert and oriented. Cranial nerves II through XII grossly intact. Skin jaundiced ASSESSMENT: 1. Cholecystitis 2. Abdominal ascites 3. Hyperbilirubinemia and elevated LFTs followed by GI service 4. Metastatic breast cancer PLAN: -Patient scheduled for paracentesis today -Patient is awaiting open MRI. Unable to have MRCP due to body habitus -Continue antibiotics Physician Quality System Manager note has been reviewed by physician. Signing provider agrees with the documented findings, assessment, and plan of care. Objective - Vital Signs Vital signs: Vital Signs Temp 98.1 F 09/21/20 07:57 Pulse 100 09/21/20 07:57 Resp 18 09/21/20 07:57 BP 112/67 09/21/20 07:57 Pulse Ox 92 L 09/21/20 07:57 Intake & Output 09/20/20 09/21/20 09/21/20 18:59 06:59 18:59 Intake Total 690 Balance 690 Intake: Intake, IV Titration 690 Amount Cefepime 1 gm In Sodium 50 Chloride 0.9% 50 ml @ 12. 5 mls/hr IVPB Q12HR [facility] Rx#:[id number] Sodium Chloride 0.9% 1, 640 000 ml @ 80 mls/hr IV . [id number] [facility] Rx#:[id number] Other: Voiding Method Bedside Commode Diaper Incontinent # Voids 1 - Labs CBC & Chem 7: 09/21/20 05:43 09/21/20 05:43 Labs: Abnormal Lab Results - Last 24 Hours (Table) 09/21/20 09/21/20 09/21/20 Range/Units 05:43 05:43 05:43 WBC 19.7 H (3.8-10.6) k/uL RBC 2.71 L (3.80-5.40) m/uL Hgb 10.3 L (11.4-16.0) gm/dL Hct 33.7 L (34.0-46.0) % MCV 124.3 H (80.0-100.0) fL MCH 38.1 H (25.0-35.0) pg MCHC 30.6 L (31.0-37.0) g/dL RDW 21.7 H (11.5-15.5) % Plt Count 135 L (150-450) k/uL Macrocytosis Marked A PT 14.3 H (9.0-12.0) sec INR 1.4 H (<1.2) Sodium 136 L (137-145) mmol/L Chloride 110 H (98-107) mmol/L Glucose 104 H (74-99) mg/dL Calcium 10.6 H (8.4-10.2) mg/dL Total Bilirubin 16.1 H* (0.2-1.3) mg/dL AST 317 H (14-36) U/L ALT 69 H (4-34) U/L Alkaline Phosphatase 134 H (38-126) U/L Total Protein 5.8 L (6.3-8.2) g/dL Albumin 2.8 L (3.5-5.0) g/dL Microbiology - Last 24 Hours (Table) 09/16/20 18:45 Blood Culture - Preliminary Blood No Growth after 96 hours <Jose Glover - Last Filed: 09/21/20 12:40> Subjective As above. Patient's white blood cell count remains elevated. Patient to high risk for ERCP and overall suspicion that patient has cholangitis remains fairly low. Having mild abdominal discomfort. No localized tenderness on exam. Continue IV antibiotics. Apparently MRCP not able to be obtained at outside institution so far. Patient may require transfer. Objective - Vital Signs Vital signs: Vital Signs Temp 98.1 F 09/21/20 07:57 Pulse 100 09/21/20 07:57 Resp 18 09/21/20 07:57 BP 112/67 09/21/20 07:57 Pulse Ox 92 L 09/21/20 07:57 Intake & Output 09/20/20 09/21/20 09/21/20 18:59 06:59 18:59 Intake Total 690 Balance 690 Weight 107.8 kg Intake: Intake, IV Titration 690 Amount Cefepime 1 gm In Sodium 50 Chloride 0.9% 50 ml @ 12. 5 mls/hr IVPB Q12HR [facility] Rx#:[id number] Sodium Chloride 0.9% 1, 640 000 ml @ 80 mls/hr IV . [id number] [facility] Rx#:[id number] Other: Voiding Method Bedside Commode Diaper Incontinent # Voids 1 - Labs CBC & Chem 7: 09/21/20 05:43 09/21/20 05:43 Labs: Abnormal Lab Results - Last 24 Hours (Table) 09/21/20 09/21/20 09/21/20 Range/Units 05:43 05:43 05:43 WBC 19.7 H (3.8-10.6) k/uL RBC 2.71 L (3.80-5.40) m/uL Hgb 10.3 L (11.4-16.0) gm/dL Hct 33.7 L (34.0-46.0) % MCV 124.3 H (80.0-100.0) fL MCH 38.1 H (25.0-35.0) pg MCHC 30.6 L (31.0-37.0) g/dL RDW 21.7 H (11.5-15.5) % Plt Count 135 L (150-450) k/uL Macrocytosis Marked A PT 14.3 H (9.0-12.0) sec INR 1.4 H (<1.2) Sodium 136 L (137-145) mmol/L Chloride 110 H (98-107) mmol/L Glucose 104 H (74-99) mg/dL Calcium 10.6 H (8.4-10.2) mg/dL Total Bilirubin 16.1 H* (0.2-1.3) mg/dL AST 317 H (14-36) U/L ALT 69 H (4-34) U/L Alkaline Phosphatase 134 H (38-126) U/L Total Protein 5.8 L (6.3-8.2) g/dL Albumin 2.8 L (3.5-5.0) g/dL Microbiology - Last 24 Hours (Table) 09/16/20 18:45 Blood Culture - Preliminary Blood No Growth after 96 hours Assessment and Plan (1) Cholecystitis Current Visit: Yes Status: Acute Code(s): K81.9 - CHOLECYSTITIS, UNSPECIFIED SNOMED Code(s): 49049938
[2020-09-21 13:17] VITALS: BMI 44.9
--- NOTE | 2020-09-21 15:44 | P.PN ---
Subjective Progress Note Date: 09/21/20 Principal diagnosis: Hyperbilirubinemia, cholelithiasis This is a 65-year-old female with a history of metastatic breast cancer diagnosed a year ago with progression in the last month. She's been on oral chemotherapy with medication change about 3-4 weeks ago. She presented to the hospital with painless jaundice with a bilirubin of 10 and new onset ascites. Plan was for the patient to get in MRI of the liver with MRCP, however patient body habitus was too large for the MRI machine. Plan is for open MRI at [facility] tomorrow. Patient complaining of upper abdominal pain, denies any nausea or vomiting, is afebrile. LFTs continue to increase, total bilirubin up to 16. Patient is scheduled to undergo paracentesis with fluid studies. Oncology is following patient closely. Objective - Vital Signs Vital signs: Vital Signs Temp 98.1 F 09/21/20 07:57 Pulse 100 09/21/20 07:57 Resp 18 09/21/20 07:57 BP 112/67 09/21/20 07:57 Pulse Ox 92 L 09/21/20 07:57 Intake & Output 09/20/20 09/21/20 09/21/20 18:59 06:59 18:59 Other: Voiding Method Bedside Commode Diaper Incontinent # Voids 1 - Exam General appearance: The patient is alert, oriented, appears in no acute distress. Obese. HET: Head is normocephalic and atraumatic. Conjunctiva pink. Sclera icteric.. Neck: Supple without lymphadenopathy. Abdomen: Soft, obese, upper abdominal tenderness, nondistended with bowel sounds. No guarding or rigidity. Extremities: Normal skin color and turgor. No pedal edema Skin: No rashes, jaundice Neurological: No focal deficits. Alert and oriented 3. - Labs CBC & Chem 7: 09/21/20 05:43 09/21/20 05:43 Labs: Abnormal Lab Results - Last 24 Hours (Table) 09/20/20 09/20/20 09/20/20 Range/Units 05:37 05:37 05:37 WBC 19.47 H (4.50-10.00) X 10*3/uL RBC 2.42 L (4.10-5.20) X 10*6/uL Hgb 9.7 L (12.0-15.0) g/dL Hct 30.4 L (37.2-46.3) % MCV 125.6 H (80.0-97.0) fL MCH 40.1 H (27.0-32.0) pg MCHC 31.9 L (32.0-37.0) g/dL RDW 21.7 H (11.5-14.5) % Plt Count 127 L (140-440) X 10*3/uL Plt Count Comment DECREASED A Absolute Nucleated RBC 7.59 H (0.00-0.00) X 10*3/uL Metamyelocytes % 2 H (0-0) % Myelocytes % 1 H (0-0) % Neutrophils # (Manual) 15.38 H (2.00-8.90) X 10*3/uL Eosinophils # (Manual) 0.39 H (0.04-0.35) X 10*3/uL Basophils # (Manual) 0.19 H (0.00-0.10) X 10*3/uL NRBC/100 WBC Diff 39.0 H (0.0-0.0) /100 WBCS Macrocytosis PT 16.6 H (9.9-11.9) sec INR 1.57 H (0.90-1.11) Sodium 134 L (135-145) mmol/L Chloride (98-107) mmol/L Carbon Dioxide 17.8 L (21.6-31.8) mmol/L BUN/Creatinine Ratio 22.86 H (12.00-20.00) Ratio Glucose (74-99) mg/dL Calcium (8.4-10.2) mg/dL Total Bilirubin 15.1 H* (0.2-1.2) mg/dL AST 268 H (13-35) U/L ALT 66 H (8-44) U/L Alkaline Phosphatase (38-126) U/L Total Protein 5.3 L (6.2-8.2) g/dL Albumin 2.90 L (3.80-4.90) g/dL Albumin/Globulin Ratio 1.21 L (1.60-3.17) g/dL 09/21/20 09/21/20 09/21/20 Range/Units 05:43 05:43 05:43 WBC 19.7 H (4.50-10.00) X 10*3/uL RBC 2.71 L (4.10-5.20) X 10*6/uL Hgb 10.3 L (12.0-15.0) g/dL Hct 33.7 L (37.2-46.3) % MCV 124.3 H (80.0-97.0) fL MCH 38.1 H (27.0-32.0) pg MCHC 30.6 L (32.0-37.0) g/dL RDW 21.7 H (11.5-14.5) % Plt Count 135 L (140-440) X 10*3/uL Plt Count Comment Absolute Nucleated RBC (0.00-0.00) X 10*3/uL Metamyelocytes % (0-0) % Myelocytes % (0-0) % Neutrophils # (Manual) (2.00-8.90) X 10*3/uL Eosinophils # (Manual) (0.04-0.35) X 10*3/uL Basophils # (Manual) (0.00-0.10) X 10*3/uL NRBC/100 WBC Diff (0.0-0.0) /100 WBCS Macrocytosis Marked A PT 14.3 H (9.9-11.9) sec INR 1.4 H (0.90-1.11) Sodium 136 L (135-145) mmol/L Chloride 110 H (98-107) mmol/L Carbon Dioxide (21.6-31.8) mmol/L BUN/Creatinine Ratio (12.00-20.00) Ratio Glucose 104 H (74-99) mg/dL Calcium 10.6 H (8.4-10.2) mg/dL Total Bilirubin 16.1 H* (0.2-1.2) mg/dL AST 317 H (13-35) U/L ALT 69 H (8-44) U/L Alkaline Phosphatase 134 H (38-126) U/L Total Protein 5.8 L (6.2-8.2) g/dL Albumin 2.8 L (3.80-4.90) g/dL Albumin/Globulin Ratio (1.60-3.17) g/dL Microbiology - Last 24 Hours (Table) 09/16/20 18:45 Blood Culture - Preliminary Blood No Growth after 96 hours Assessment and Plan (1) Hyperbilirubinemia Narrative/Plan: New onset jaundice with mild elevation of bilirubin that was initially detected a month ago. During this hospitalization and initial bilirubin up to 10.2 with bilirubin continuing to increase. Mild elevation of serum transaminases noted. CT of the abdomen did not show any evidence of biliary ductal dilation, however there was moderate amount of ascites noted and liver appeared normal. Ultrasound of the abdomen did not show any evidence of biliary ductal dilation either. Patient was scheduled for MRCP however was unable to complete exam due to body habitus. Open MRI MRCP has been ordered. At this time unclear if we are dealing with intrahepatic cholestasis secondary to medications from recent chemotherapy or if there is a component of obstructive jaundice from metastatic breast cancer. Likely we are dealing with medication-induced hepatitis with underlying liver disease. Labs are consistent with a cholestatic pattern. Awaiting possibility of outpatient open MRI/MRCP Current Visit: Yes Status: Acute Code(s): E80.6 - OTHER DISORDERS OF BILIRUBIN METABOLISM SNOMED Code(s): 87419233 (2) Ascites Current Visit: Yes Status: Acute Code(s): R18.8 - OTHER ASCITES SNOMED Code(s): 597621099 (3) Generalized weakness Current Visit: Yes Status: Acute Code(s): R53.1 - WEAKNESS SNOMED Code(s): 05062168 (4) Metastatic breast cancer Narrative/Plan: Oncology following closely Current Visit: Yes Status: Acute Code(s): C50.919 - MALIGNANT NEOPLASM OF UNSP SITE OF UNSPECIFIED FEMALE BREAST SNOMED Code(s): 116342389 Plan: 1. MRI liver/MRCP ordered, patient awaiting to have open MRI 2. Continue symptomatic and supportive care 3. Patient may have regular diet 4. Daily CMP 5. Repeat PT/INR 6. Paracentesis ordered with fluid studies including cytology 7. Further recommendations to follow Thank you for this consultation, we will continue to follow Dr. J Carlos Pitts I agree with the dictator's note, documented as a scribe by Ligia Cruz.
[2020-09-21] MEDS: SODIUM CHLORIDE 0.9% 1,000 ML IV SCH (15:45)
--- NOTE | 2020-09-21 16:45 | US ---
EXAMINATION TYPE: US paracentesis abd w/image DATE OF EXAM: 09/21/2020 CLINICAL HISTORY: Ascites COMPARISON: CT abdomen pelvis 09/16/2020 CHIEF AIRPORT GUIDE: Dr. Tara Benavides PROCEDURE: Preprocedure preliminary ultrasound imaging demonstrates small volume ascites in the left lower quadr ant. Informed consent was obtained from the patient's son. The procedure was also discussed with the patie nt. The patient was placed supine on the ultrasound table and prepped and draped in the usual sterile fas hion. All elements of maximal barrier technique were utilized. Under ultrasound guidance, access into the left lower quadrant was obtained with a 5 Vietnamese one-step centesis catheter. Approximately 1.1 liters of clear bright yellow serous fluid was removed. Catheter was removed and st erile bandage was applied. The patient was stable throughout the procedure and remained stable upon d ischarge from Department of Radiology. IMPRESSION: Successful ultrasound-guided diagnostic paracentesis, with removal of 1.1 liters of clear bright yell ow fluid.
[2020-09-21 18:03] LABS: Appearance,BF Hazy; Color,BF Yellow; Nucleated Cells, Body Fluid 330 /uL; RBC, Body Fluid 1090 /uL
[2020-09-21 18:09] LABS: Mononuclear WBC,Body Fluid 99 %; Polynuclear WBC,Body Fluid 1 %; Total Cells Counted,Body Fluid 100
[2020-09-21 18:35] LABS: Anisocytosis Moderate; HCT 34.6 % (34.0-46.0); HGB 10.8 gm/dL (11.4-16.0); Hypochromasia Marked; MCH 39.3 pg (25.0-35.0); MCHC 31.1 g/dL (31.0-37.0); Macrocytosis Marked; Mean Platelet Volume 9.4; Platelet Count 101 k/uL (150-450); RBC 2.74 m/uL (3.80-5.40); RDW 21.2 % (11.5-15.5)
[2020-09-21 18:37] LABS: MCV 126.3 fL (80.0-100.0)
--- NOTE | 2020-09-21 18:59 | P.PN ---
Subjective Progress Note Date: 09/21/20 Principal diagnosis: Metastatic Breast Cancer Patient's increased lethargy, she was scheduled MRI to open MRI today, although they cancelled due to inability to do contrast. Patients clinical status is worsening and a decision regarding treatment is needed quickly. Therefore we will check PT/INR tonight and plan liver biopsy tomorrow. I have spoken to Moe ennis MRI, [facility], Florian Roland, Armando mullen MRI, Hospitalist (possible transfer in am) Objective - Vital Signs Vital signs: Vital Signs Temp 97.8 F 09/21/20 14:58 Pulse 98 09/21/20 17:15 Resp 20 09/21/20 14:58 BP 92/48 09/21/20 17:15 Pulse Ox 95 09/21/20 15:00 Intake & Output 09/20/20 09/21/20 09/21/20 18:59 06:59 18:59 Intake Total 690 Balance 690 Weight 107.8 kg Intake: Intake, IV Titration 690 Amount Cefepime 1 gm In Sodium 50 Chloride 0.9% 50 ml @ 12. 5 mls/hr IVPB Q12HR [facility] Rx#:[id number] Sodium Chloride 0.9% 1, 640 000 ml @ 80 mls/hr IV . [id number] [facility] Rx#:[id number] Other: Voiding Method Bedside Commode Diaper Incontinent # Voids 1 - Exam Constitutional General appearance: cooperative, morbidly obese - EENT Eyes: scleral icterus ENT: hard of hearing - Neck Neck: normal ROM - Respiratory Respiratory: bilateral: diminished (Bilateral Bases) - Cardiovascular Rhythm: regularly irregular - Gastrointestinal General gastrointestinal: soft, tenderness - Integumentary Integumentary: jaundiced - Neurologic non focal - Musculoskeletal Musculoskeletal: generalized weakness - Psychiatric Lethargic. Psychiatric: A&O x's 3 - Labs CBC & Chem 7: 09/21/20 18:20 09/21/20 05:43 Labs: Abnormal Lab Results - Last 24 Hours (Table) 09/21/20 09/21/20 09/21/20 Range/Units 05:43 05:43 05:43 WBC 19.7 H (3.8-10.6) k/uL RBC 2.71 L (3.80-5.40) m/uL Hgb 10.3 L (11.4-16.0) gm/dL Hct 33.7 L (34.0-46.0) % MCV 124.3 H (80.0-100.0) fL MCH 38.1 H (25.0-35.0) pg MCHC 30.6 L (31.0-37.0) g/dL RDW 21.7 H (11.5-15.5) % Plt Count 135 L (150-450) k/uL Macrocytosis Marked A PT 14.3 H (9.0-12.0) sec INR 1.4 H (<1.2) Sodium 136 L (137-145) mmol/L Chloride 110 H (98-107) mmol/L Glucose 104 H (74-99) mg/dL Calcium 10.6 H (8.4-10.2) mg/dL Total Bilirubin 16.1 H* (0.2-1.3) mg/dL AST 317 H (14-36) U/L ALT 69 H (4-34) U/L Alkaline Phosphatase 134 H (38-126) U/L Total Protein 5.8 L (6.3-8.2) g/dL Albumin 2.8 L (3.5-5.0) g/dL 09/21/20 Range/Units 18:20 WBC 24.5 H (3.8-10.6) k/uL RBC 2.74 L (3.80-5.40) m/uL Hgb 10.8 L (11.4-16.0) gm/dL Hct (34.0-46.0) % MCV 126.3 H (80.0-100.0) fL MCH 39.3 H (25.0-35.0) pg MCHC (31.0-37.0) g/dL RDW 21.2 H (11.5-15.5) % Plt Count 101 L (150-450) k/uL Macrocytosis Marked A PT (9.0-12.0) sec INR (<1.2) Sodium (137-145) mmol/L Chloride (98-107) mmol/L Glucose (74-99) mg/dL Calcium (8.4-10.2) mg/dL Total Bilirubin (0.2-1.3) mg/dL AST (14-36) U/L ALT (4-34) U/L Alkaline Phosphatase (38-126) U/L Total Protein (6.3-8.2) g/dL Albumin (3.5-5.0) g/dL Microbiology - Last 24 Hours (Table) 09/16/20 18:45 Blood Culture - Preliminary Blood No Growth after 96 hours Assessment and Plan (1) Metastatic breast cancer Current Visit: Yes Status: Acute Code(s): C50.919 - MALIGNANT NEOPLASM OF UNSP SITE OF UNSPECIFIED FEMALE BREAST SNOMED Code(s): 828128652 (2) Cholecystitis Current Visit: Yes Status: Acute Code(s): K81.9 - CHOLECYSTITIS, UNSPECIFIED SNOMED Code(s): 96785184 (3) Generalized weakness Current Visit: Yes Status: Acute Code(s): R53.1 - WEAKNESS SNOMED Code(s): 18058271 (4) Hyperbilirubinemia Current Visit: Yes Status: Acute Code(s): E80.6 - OTHER DISORDERS OF BILI [place] METABOLISM SNOMED Code(s): 52098780 Plan: Assessment and Recommendations: Metastatic Breast Cancer: - Recent progression with new regimen initiated - She does have more options for treatment although at this time we need MRI to determine plan of care. Cholecystitis versus metastatic progression to liver - Unable to further work-up given her habitual size - GI and Gen Surg are following Acute Respiratory Insufficiency: - Pulmonary has been asked to further evaluate - POtential compoenent of shunting from liver failure Increased Liver Function: - MOnitor COags and labs daily, vit K if needed Metabolic Encephalopathy: - COntinue on Lactulose PLan: - Monitor Liver function, CBC, and COags daily - Transfer to tertiary care for open MRI versus Liver Biopsy INR 1.5, Status post ghassan k 5mg 11/20 Recheck daily Lactulose to continue Patient's increased lethargy, she was scheduled MRI to open MRI today, although they cancelled due to inability to do contrast. Patients clinical status is worsening and a decision regarding treatment is needed quickly. Therefore we will check PT/INR tonight and plan liver biopsy tomorrow. I have spoken to [facility] BERRY, [facility], Armando Larsen, Hospitalist (possible transfer in am) Physician Attest: I have completed the full history and physical and agree with above dictation, dictated as a scribe.
[2020-09-21 19:02] LABS: Band Neutrophils % 7 %; Metamyelocytes % 1 %; Neutrophils % (M) 39 %; Nucleated Red Blood Cells 70 /100 WBC (0-0); Total Cells Counted 200
[2020-09-21 19:03] LABS: Lymphocytes # (M) 5.18 k/uL (1.0-4.8); Metamyelocytes # (M) 0.14 k/uL (0); Monocytes # (M) 2.45 k/uL (0-1.0); WBC 14.4 k/uL (3.8-10.6)
[2020-09-21 19:04] LABS: Anisocytosis (M) Present; Poikilocytosis (M) Present; Polychromasia Present; RBC Fragments Present
[2020-09-21] MEDS ORDERED: PHYTONADIONE ORAL 5 MG/5 ML ORAL.SYRG PO STA (20:00)
--- NOTE | 2020-09-21 20:05 | P.PN ---
Progress Note - Text Progress Note Date: 09/21/20 Chief Complaint: Increasing confusion History of presenting complaint: This is a 65-year-old patient who follows with Dr. Andrade. Oncologist Dr. De La Paz. Patient had presented to the ER with her son. He reported that the patient has been feeling weak for several days. Has known metastatic breast cancer with bone metastasis and is currently being treated with oral chemotherapy. Patient has been becoming increasingly confused recently. Patient has been becoming uns teady. Patient does live alone. Has a slight cough. Has chronic unchanged dyspnea. Patient slow to answer questions. Denies any headache or vision changes. No chest pain. Decreased appetite. No fever no chills. Admitted with possible pneumonia, acute metabolic encephalopathy. Could not have an MRI because of her habitus. Fluoroscopy done for elevated right diaphragm negative for diaphragm paralysis. Discussed with Dr. J Carlos Pitts: Patient has known breast cancer with metastatic to liver. Patient also has known cirrhosis from fatty liver. September 18: Patient unable to have MRI of the brain as she will not fit because of her weight. Tired Laying in bed. September 19: Laying in bed. Tired. Answer simple questions. Eating about 50%. Vitamin K given by hematology. September 20: reclining in a chair. Answer questions. Some right upper abdominal pain. No nausea vomiting. Oral intake fair. Discussed with Dr. Ojeda from general surgery: Not any surgical intervention at present time. Discussed with Dr. J Carlos Pitts from GI. She had early discuss care in detail with Dr. De La Paz from oncology.: Patient has known breast cancer with metastatic disease including liver. Also received immunotherapy. Patient has known cirrhosis. At the present time does not dilatation of ducts hence ERCP not indicated. Most likely this is liver decompensation acutely. Doubt cholecystitis. Also spoke to disability case manager. Open MRI possibly tomorrow or day after September 21: Patient still complaining of some right upper quadrant pain. Discussed with Dr. J Carlos Pitts. Sheridan to be cholecystitis unlikely. Communicative Dr. Ojeda.-To keep antibiotics on for now. Late in the day discussed with Dr. De La Paz from oncology. Patient most likely has diffuse metastatic disease in the liver. Which may not show up on the PET scan. Plan is for a liver biopsy tomorrow. Open MRI slots not available in town. 1.1 L of diagnostic paracentesis carried out today. Bright yellow fluid. Review of systems: Was done for constitutional, cardiovascular, GI, pulmonary. relevant finding as above Active Medications Benzocaine/Menthol (Benzocaine/Menthol Lozeng 1 Each Lozenge) 1 each MUCOUS MEM Q4HR PRN PRN Reason: Cough Last Admin: 09/18/20 21:48 Dose: 1 each Documented by: Calcium Carbonate/Glycine (Calcium Carbonate 500 Mg Chewable) 500 mg PO QID [facility] Last Admin: 09/21/20 15:46 Dose: 500 mg Documented by: Cholecalciferol (Cholecalciferol 25 Mcg (1000 Iu) Tablet) 125 mcg PO DAILY [facility] Last Admin: 09/21/20 08:33 Dose: 125 mcg Documented by: Cyanocobalamin (Cyanocobalamin 500 Mcg Tab) 1,000 mcg PO DAILY [facility] Last Admin: 09/21/20 08:33 Dose: 1,000 mcg Documented by: Gabapentin (Gabapentin 100 Mg Cap) 200 mg PO HS@2000 [facility] Last Admin: 09/20/20 19:36 Dose: 200 mg Documented by: Sodium Chloride (Saline 0.9%) 1,000 mls @ 80 mls/hr IV .[id number] [facility] Last Admin: 09/21/20 15:45 Dose: 80 mls/hr Documented by: Cefepime HCl 1 gm/ Sodium (Chloride) 50 mls @ 12.5 mls/hr IVPB Q12HR [facility] Last Admin: 09/21/20 08:33 Dose: 12.5 mls/hr Documented by: Lactulose (Lactulose 20 Gm/30 Ml Cup) 20 gm PO BID [facility] Last Admin: 09/21/20 08:33 Dose: 20 gm Documented by: Lisinopril (Lisinopril 20 Mg Tab) 20 mg PO DAILY@0900 [facility] Last Admin: 09/21/20 08:33 Dose: 20 mg Documented by: Multivitamins (Multivitamins, Thera 1 Each Tab) 1 each PO DAILY [facility] Last Admin: 09/21/20 08:33 Dose: 1 each Documented by: Oxybutynin Chloride (Oxybutynin 10 Mg Tab.Er.24) 10 mg PO DAILY@0900 [facility] Last Admin: 09/21/20 08:33 Dose: 10 mg Documented by: Phytonadione (Phytonadione Oral 5 Mg/5 Ml Oral.Syrg) 5 mg PO ONCE STA Stop: 09/21/20 20:01 Past medical history to include: Metastatic breast cancer with metastases to the bone on oral chemotherapy, hypertension, hyperlipidemia, DJD, Social history: Remote history of smoking. No alcohol. Lives alone. Family history: Cancer Physical examination: VITAL SIGNS: 97.9, 92, 18, 100/47, 91% room air GENERAL: Reclining in bed awake, tired EYES: Pupils equal. Conjunctiva normal. HEENT: External appearance of nose and ears normal, oral cavity grossly normal. NECK: JVD not raised; masses not palpable. HEART: First and second heart sounds are normal; no edema. LUNGS: Respiratory rate increased decreased breath sounds. ABDOMEN: Soft, right upper quadrant tenderness, no guarding rigidity,, liver spleen not palpable, no masses palpable. PSYCH: Patient able to answer simple questions MUSCULAR skeletal: Evidence of OA INVESTIGATIONS, reviewed in the clinical context: September 21: WBC 14.4 hemoglobin 10.8 platelets 101 potassium 4.9 creatinine 0.62 total bilirubin 16.4 AST 317 ALT 69 September 20: WBC 19.4 hemoglobin 9.7 which is 127 INR 1.5 potassium 4.5 creatinine 0.7 total bilirubin 15.1 AST 268 ALT 66 September 19: WBC 14.9 and globin 10.3 platelets 136 potassium 5 total bilirubin 12.6 2-D echocardiogram: EF greater than 55%. No wall motion up to monitor. High resolution CT chest: Mild pulmonary interstitial infiltrates. Improved September 18: WBC 10.1 hemoglobin 10.5 platelets 135 potassium 5.2 creatinine 0.71 AST 247 ALT 51 Pro-calcitonin 0.47 CA 15-3 antigen: 1171 CA 27-29 1854 vitamin B12 greater than 4000 WBC 10 hemoglobin 9.8 MCV 125 platelets 113 potassium 4.6 creatinine 0.84 Total bilirubin 9.6 AST 18T ALT 43 alkaline phosphatase 98 albumin 2.7 Admission labs: Potassium 5.4 lactic acid 2.2. Total bilirubin 10.2 AST 205 ALT 43 UA positive for small leukoesterase, 10 WBC COVID 19 negative EKG tracing personally reviewed by me-normal sinus rhythm, nonspecific ST segment changes Gallbladder ultrasound: per lobe liver eyesight chronic contents with human with sludge and with hyperechoic focus in the fundus abnormally thickened wall fluid noted surrounding fundus. CT abdomen fundus: Moderate abdominal ascites. Gallstones. Chest CTA: Negative for PE. New pulmonary interstitial infiltrates CT brain: Encephalomyelitis year no midline shift. Chest x-ray film personally reviewed by me-elevated right diaphragm Assessment and plan: -Acute metabolic encephalopathy: Likely hepatic encephalopathy.: Some improvement Patient on lactulose. -Possible pneumonia, suspect gram-negative organism-improved On IV cefepime -Likely acute liver decompensation, multifactorial in the setting of underlying cirrhosis, suspected metastatic disease possible chemotherapy: Worsening Patient to get a liver biopsy tomorrow. Per interventional radiology. -Metastatic breast cancer with bone and suspected liver metastases: With recent progression On oral chemotherapy. Liver biopsy tomorrow for further confirmation of diagnosis. -Morbid obesity BMI 47.2 -Chronic shortness of breath. Multifactorial including possible fibrosis, obesity hypoventilation syndrome -Thrombocytopenia, likely secondary to underlying malignancy and/or chemotherapy Follow CBC -Essential hypertension Prinivil -Peripheral neuropathy On Neurontin -Vitamin B-12 deficiency B12 supplement -Chronic urinary stress incontinence On oxybutynin -Less likely cholecystitis Continue cefepime 0.0. Position not available. For open MRI. Give vitamin K. For liver biopsy tomorrow. Pending on that decision be made by oncology about chemotherapy. Total time spent today about 1 hour with over 40 minutes of discussion.
[2020-09-21 20:59] LABS: ALT 67 U/L (4-34); AST 321 U/L (14-36); African American GFR (CKD) 84 (>60 ml/min/1.73 sqM); Albumin 2.6 g/dL (3.5-5.0); Albumin/Globulin Ratio 0.8; Alkaline Phosphatase 117 U/L (38-126); Anion Gap 5 mmol/L; Blood Urea Nitrogen 21 mg/dL (7-17); Calcium 10.4 mg/dL (8.4-10.2); Carbon Dioxide 17 mmol/L (22-30); Chloride 112 mmol/L (98-107); Globulin 3.3 g/dL; Glucose 104 mg/dL (74-99); Non-African American GFR(CKD) 73 (>60 ml/min/1.73 sqM); Potassium 5.3 mmol/L (3.5-5.1); Sodium 134 mmol/L (137-145); Total Protein 5.9 g/dL (6.3-8.2)
[2020-09-21 21:08] LABS: Total Bilirubin 15.7 mg/dL (0.2-1.3)
[2020-09-21] MEDS: GABAPENTIN 100 MG CAP PO SCH (21:40)
[2020-09-22 01:26] LABS: Total Protein, Body Fluid 950 mg/dL
[2020-09-22 01:58] LABS: Albumin, Fluid Source Paracentesis Fluid
[2020-09-22 02:09] LABS: ALT 65 U/L (4-34); AST 286 U/L (14-36); African American GFR (CKD) 67 (>60 ml/min/1.73 sqM); Albumin 2.4 g/dL (3.5-5.0); Albumin/Globulin Ratio 0.8; Alkaline Phosphatase 114 U/L (38-126); Anion Gap 5 mmol/L; Blood Urea Nitrogen 23 mg/dL (7-17); Calcium 10.5 mg/dL (8.4-10.2); Carbon Dioxide 19 mmol/L (22-30); Chloride 111 mmol/L (98-107); Globulin 2.9 g/dL; Glucose 104 mg/dL (74-99); Non-African American GFR(CKD) 58 (>60 ml/min/1.73 sqM); Potassium 4.6 mmol/L (3.5-5.1); Sodium 135 mmol/L (137-145)
[2020-09-22 02:16] LABS: Total Protein 5.3 g/dL (6.3-8.2)
[2020-09-22 02:17] LABS: INR 1.6 (<1.2); Partial Thromboplastin Time 29.6 sec (22.0-30.0); Prothrombin Time 16.2 sec (9.0-12.0)
[2020-09-22 02:34] LABS: Anisocytosis Moderate; HCT 31.6 % (34.0-46.0); HGB 9.8 gm/dL (11.4-16.0); Hypochromasia Marked; MCH 38.8 pg (25.0-35.0); MCHC 30.9 g/dL (31.0-37.0); MCV 125.5 fL (80.0-100.0); Macrocytosis Marked; Mean Platelet Volume 11.4; Platelet Count 135 k/uL (150-450); RBC 2.52 m/uL (3.80-5.40); RDW 21.7 % (11.5-15.5)
[2020-09-22] MEDS ORDERED: PHYTONADIONE 5 MG in SODIUM CHLORIDE 0.9% 50 ML IVPB STA (03:03)
[2020-09-22 03:35] LABS: Band Neutrophils % 3 %; Metamyelocytes % 2 %; Neutrophils % (M) 50 %; Nucleated Red Blood Cells 92 /100 WBC (0-0); Total Cells Counted 200
[2020-09-22 03:36] LABS: Anisocytosis (M) Present; Basophils # (M) 0.13 k/uL (0-0.2); Eosinophils # (M) 0.26 k/uL (0-0.7); Howell-Jolly Bodies Present; Lymphocytes # (M) 4.29 k/uL (1.0-4.8); Metamyelocytes # (M) 0.26 k/uL (0); Monocytes # (M) 1.43 k/uL (0-1.0); Poikilocytosis (M) Present; Polychromasia Present
[2020-09-22] MEDS: SODIUM CHLORIDE 0.9% 1,000 ML IV SCH ×2 (03:43→17:22)
[2020-09-22 06:49] LABS: INR 1.5 (<1.2); Prothrombin Time 15.5 sec (9.0-12.0)
[2020-09-22] MEDS: CALCIUM CARBONATE 500 MG CHEWABLE PO SCH ×3 (07:53→18:53)
[2020-09-22] MEDS: CEFEPIME 1 GM in SODIUM CHLORIDE 0.9% 50 ML IVPB SCH (07:54)
[2020-09-22] MEDS: CHOLECALCIFEROL 25 MCG (1000 IU) TABLET PO SCH (07:55)
[2020-09-22] MEDS: MULTIVITAMINS, THERA 1 EACH TAB PO SCH (07:55)
[2020-09-22] MEDS: CYANOCOBALAMIN 500 MCG TAB PO SCH (07:55)
[2020-09-22] MEDS: OXYBUTYNIN 10 MG TAB.ER.24 PO SCH (07:55)
[2020-09-22] MEDS: lisinopriL 20 MG TAB PO SCH (07:56)
[2020-09-22] MEDS: LACTULOSE 20 GM/30 ML CUP PO SCH (07:56)
[2020-09-22] MEDS ORDERED: ONDANSETRON 4 MG/2 ML VIAL IVP PRN (09:20)
--- NOTE | 2020-09-22 11:23 | P.OP ---
Date of Procedure: 09/22/20 Preoperative Diagnosis: LIVER DISEASE. HISTORY OF BREAST CANCER. Postoperative Diagnosis: SAME Procedure(s) Performed: ULTRASOUND GUIDED RANDOM LIVER PARENCHYMAL BIOPSY Anesthesia: local Surgeon: Tara Benavides Estimated Blood Loss (ml): 0 Pathology: other (2 18G CORES SENT FOR HISTOPATHOLOGY) Condition: stable Disposition: floor Description of Procedure: LEFT LOBE LIVER TARGETED FOR RANDOM LIVER BIOPSY
--- NOTE | 2020-09-22 11:36 | P.PN ---
<Nichelle Castro - Last Filed: 09/22/20 13:23> Subjective Progress Note Date: 09/22/20 CHIEF COMPLAINT: Cholecystitis HISTORY OF PRESENT ILLNESS: Surgical service is following regards to her cholecystitis. Patient is lying in bed. She is more confused today. She denies any abdominal pain. She does report feeling nauseous. She had liver biopsy completed today. Patient had paracentesis completed yesterday with 1.5 L removed. Possible transfer to [place] in process. Patient is unable to have MRCP at this facility. Afebrile. WBC trending down to 13.0. Total bilirubin is up from 15.7-16 AST 286 and ALT 65 PHYSICAL EXAM: VITAL SIGNS: Reviewed. GENERAL: Well-developed in no acute distress. HEENT: Positive sclera icterus. Extraocular movements grossly intact. Moist buccal mucosa. Head is atraumatic, normocephalic. ABDOMEN: Soft. Mildly distended. Diffuse tenderness with palpation NEUROLOGIC: Confused Skin:jaundiced ASSESSMENT: 1. Cholecystitis 2. Abdominal ascites 3. Hyperbilirubinemia and elevated LFTs followed by GI service 4. Metastatic breast cancer PLAN: -Patient is awaiting open MRI. Unable to have MRCP due to body habitus -Continue antibiotics -Follow up on paracentesis cultures and cytology -Continue GI and oncology workup -Continue supportive care Physician Cultural [employer] Manager note has been reviewed by physician. Signing provider agrees with the documented findings, assessment, and plan of care. Objective - Vital Signs Vital signs: Vital Signs Temp 98.6 F 09/22/20 04:14 Pulse 97 09/22/20 11:25 Resp 16 09/22/20 11:25 BP 103/51 09/22/20 11:25 Pulse Ox 92 L 09/22/20 11:25 Intake & Output 09/21/20 09/22/20 09/22/20 18:59 06:59 18:59 Intake Total 690 50 Balance 690 50 Weight 107.8 kg Intake: Intake, IV Titration 690 50 Amount Cefepime 1 gm In Sodium 50 50 Chloride 0.9% 50 ml @ 12. 5 mls/hr IVPB Q12HR [facility] Rx#:[id number] Sodium Chloride 0.9% 1, 640 000 ml @ 80 mls/hr IV . [id number] [facility] Rx#:[id number] Other: Voiding Method Diaper Incontinent # Voids 3 - Labs CBC & Chem 7: 09/22/20 01:44 09/22/20 01:44 Labs: Abnormal Lab Results - Last 24 Hours (Table) 09/21/20 09/21/20 09/22/20 Range/Units 18:20 20:09 01:44 WBC 14.4 H 13.0 H (3.8-10.6) k/uL RBC 2.74 L 2.52 L (3.80-5.40) m/uL Hgb 10.8 L 9.8 L (11.4-16.0) gm/dL Hct 31.6 L (34.0-46.0) % MCV 126.3 H 125.5 H (80.0-100.0) fL MCH 39.3 H 38.8 H (25.0-35.0) pg MCHC 30.9 L (31.0-37.0) g/dL RDW 21.2 H 21.7 H (11.5-15.5) % Plt Count 101 L 135 L (150-450) k/uL Lymphocytes # (Manual) 5.18 H (1.0-4.8) k/uL Monocytes # (Manual) 2.45 H 1.43 H (0-1.0) k/uL Metamyelocytes # (Man) 0.14 H 0.26 H (0) k/uL Nucleated RBCs 70 H 92 H (0-0) /100 WBC Macrocytosis Marked A Marked A PT (9.0-12.0) sec INR (<1.2) Sodium 134 L (137-145) mmol/L Potassium 5.3 H (3.5-5.1) mmol/L Chloride 112 H (98-107) mmol/L Carbon Dioxide 17 L (22-30) mmol/L BUN 21 H (7-17) mg/dL Glucose 104 H (74-99) mg/dL Calcium 10.4 H (8.4-10.2) mg/dL Total Bilirubin 15.7 H* (0.2-1.3) mg/dL AST 321 H (14-36) U/L ALT 67 H (4-34) U/L Total Protein 5.9 L (6.3-8.2) g/dL Albumin 2.6 L (3.5-5.0) g/dL 09/22/20 09/22/20 09/22/20 Range/Units 01:44 01:44 05:41 WBC (3.8-10.6) k/uL RBC (3.80-5.40) m/uL Hgb (11.4-16.0) gm/dL Hct (34.0-46.0) % MCV (80.0-100.0) fL MCH (25.0-35.0) pg MCHC (31.0-37.0) g/dL RDW (11.5-15.5) % Plt Count (150-450) k/uL Lymphocytes # (Manual) (1.0-4.8) k/uL Monocytes # (Manual) (0-1.0) k/uL Metamyelocytes # (Man) (0) k/uL Nucleated RBCs (0-0) /100 WBC Macrocytosis PT 16.2 H 15.5 H (9.0-12.0) sec INR 1.6 H 1.5 H (<1.2) Sodium 135 L (137-145) mmol/L Potassium (3.5-5.1) mmol/L Chloride 111 H (98-107) mmol/L Carbon Dioxide 19 L (22-30) mmol/L BUN 23 H (7-17) mg/dL Glucose 104 H (74-99) mg/dL Calcium 10.5 H (8.4-10.2) mg/dL Total Bilirubin 16.0 H* (0.2-1.3) mg/dL AST 286 H (14-36) U/L ALT 65 H (4-34) U/L Total Protein 5.3 L (6.3-8.2) g/dL Albumin 2.4 L (3.5-5.0) g/dL Microbiology - Last 24 Hours (Table) 09/21/20 14:20 Gram Stain - Preliminary Paracentesis Fluid Body Fluid Culture - Preliminary 09/21/20 14:20 Anaerobic Culture - Preliminary Paracentesis Fluid 09/16/20 18:45 Blood Culture - Preliminary Blood No Growth after 120 hours <Jose Glover - Last Filed: 09/22/20 14:41> Subjective As above. Patient went for paracentesis and liver biopsy. Apparently frozen section from liver biopsy confirms metastatic disease. Patient will be starting chemotherapy at this time. Spoke with oncology and primary service. We'll sign off. Please call if needed. Objective - Vital Signs Vital signs: Vital Signs Temp 97.9 F 09/22/20 13:30 Pulse 100 09/22/20 13:30 Resp 18 09/22/20 13:30 BP 104/60 09/22/20 13:30 Pulse Ox 93 L 09/22/20 14:36 Intake & Output 09/21/20 09/22/20 09/22/20 18:59 06:59 18:59 Intake Total 690 50 Balance 690 50 Weight 107.8 kg Intake: Intake, IV Titration 690 50 Amount Cefepime 1 gm In Sodium 50 50 Chloride 0.9% 50 ml @ 12. 5 mls/hr IVPB Q12HR [facility] Rx#:[id number] Sodium Chloride 0.9% 1, 640 000 ml @ 80 mls/hr IV . [id number] [facility] Rx#:[id number] Other: Voiding Method Diaper Incontinent # Voids 3 - Labs CBC & Chem 7: 09/22/20 01:44 09/22/20 01:44 Labs: Abnormal Lab Results - Last 24 Hours (Table) 09/21/20 09/21/20 09/22/20 Range/Units 18:20 20:09 01:44 WBC 14.4 H 13.0 H (3.8-10.6) k/uL RBC 2.74 L 2.52 L (3.80-5.40) m/uL Hgb 10.8 L 9.8 L (11.4-16.0) gm/dL Hct 31.6 L (34.0-46.0) % MCV 126.3 H 125.5 H (80.0-100.0) fL MCH 39.3 H 38.8 H (25.0-35.0) pg MCHC 30.9 L (31.0-37.0) g/dL RDW 21.2 H 21.7 H (11.5-15.5) % Plt Count 101 L 135 L (150-450) k/uL Lymphocytes # (Manual) 5.18 H (1.0-4.8) k/uL Monocytes # (Manual) 2.45 H 1.43 H (0-1.0) k/uL Metamyelocytes # (Man) 0.14 H 0.26 H (0) k/uL Nucleated RBCs 70 H 92 H (0-0) /100 WBC Macrocytosis Marked A Marked A PT (9.0-12.0) sec INR (<1.2) Sodium 134 L (137-145) mmol/L Potassium 5.3 H (3.5-5.1) mmol/L Chloride 112 H (98-107) mmol/L Carbon Dioxide 17 L (22-30) mmol/L BUN 21 H (7-17) mg/dL Glucose 104 H (74-99) mg/dL Calcium 10.4 H (8.4-10.2) mg/dL Total Bilirubin 15.7 H* (0.2-1.3) mg/dL AST 321 H (14-36) U/L ALT 67 H (4-34) U/L Total Protein 5.9 L (6.3-8.2) g/dL Albumin 2.6 L (3.5-5.0) g/dL 09/22/20 09/22/20 09/22/20 Range/Units 01:44 01:44 05:41 WBC (3.8-10.6) k/uL RBC (3.80-5.40) m/uL Hgb (11.4-16.0) gm/dL Hct (34.0-46.0) % MCV (80.0-100.0) fL MCH (25.0-35.0) pg MCHC (31.0-37.0) g/dL RDW (11.5-15.5) % Plt Count (150-450) k/uL Lymphocytes # (Manual) (1.0-4.8) k/uL Monocytes # (Manual) (0-1.0) k/uL Metamyelocytes # (Man) (0) k/uL Nucleated RBCs (0-0) /100 WBC Macrocytosis PT 16.2 H 15.5 H (9.0-12.0) sec INR 1.6 H 1.5 H (<1.2) Sodium 135 L (137-145) mmol/L Potassium (3.5-5.1) mmol/L Chloride 111 H (98-107) mmol/L Carbon Dioxide 19 L (22-30) mmol/L BUN 23 H (7-17) mg/dL Glucose 104 H (74-99) mg/dL Calcium 10.5 H (8.4-10.2) mg/dL Total Bilirubin 16.0 H* (0.2-1.3) mg/dL AST 286 H (14-36) U/L ALT 65 H (4-34) U/L Total Protein 5.3 L (6.3-8.2) g/dL Albumin 2.4 L (3.5-5.0) g/dL Microbiology - Last 24 Hours (Table) 09/21/20 14:20 Gram Stain - Preliminary Paracentesis Fluid Body Fluid Culture - Preliminary 09/21/20 14:20 Anaerobic Culture - Preliminary Paracentesis Fluid 09/16/20 18:45 Blood Culture - Preliminary Blood No Growth after 120 hours Assessment and Plan (1) Cholecystitis Current Visit: Yes Status: Acute Code(s): K81.9 - CHOLECYSTITIS, UNSPECIFIED SNOMED Code(s): 13103060
--- NOTE | 2020-09-22 14:34 | P.PN ---
Subjective Progress Note Date: 09/22/20 Principal diagnosis: Metastatic Breast Cancer Preliminary pathology on liver today does reveal diffuse liver mets, IV Salvage chemo for rapidly progressing breast cancer ordered. Later seen patient again and son and daughter in law at bedtime, patient anxious and family has josie nsidered salvage therapy and would like to move forward with hospice comfort only Objective - Vital Signs Vital signs: Vital Signs Temp 97.9 F 09/22/20 13:30 Pulse 100 09/22/20 13:30 Resp 18 09/22/20 13:30 BP 85/48 09/22/20 13:30 Pulse Ox 91 L 09/22/20 13:30 Intake & Output 09/21/20 09/22/20 09/22/20 18:59 06:59 18:59 Intake Total 690 50 Balance 690 50 Weight 107.8 kg Intake: Intake, IV Titration 690 50 Amount Cefepime 1 gm In Sodium 50 50 Chloride 0.9% 50 ml @ 12. 5 mls/hr IVPB Q12HR [facility] Rx#:[id number] Sodium Chloride 0.9% 1, 640 000 ml @ 80 mls/hr IV . [id number] [facility] Rx#:[id number] Other: Voiding Method Diaper Incontinent # Voids 3 - Exam Constitutional General appearance: cooperative, morbidly obese - EENT Eyes: scleral icterus ENT: hard of hearing - Neck Neck: normal ROM - Respiratory Respiratory: bilateral: diminished (Bilateral Bases) - Cardiovascular Rhythm: regularly irregular - Gastrointestinal General gastrointestinal: soft, tenderness - Integumentary Integumentary: jaundiced - Neurologic non focal - Musculoskeletal Musculoskeletal: generalized weakness - Psychiatric Lethargic. Psychiatric: A&O x's 3 - Labs CBC & Chem 7: 09/22/20 01:44 09/22/20 01:44 Labs: Abnormal Lab Results - Last 24 Hours (Table) 09/21/20 09/21/20 09/22/20 Range/Units 18:20 20:09 01:44 WBC 14.4 H 13.0 H (3.8-10.6) k/uL RBC 2.74 L 2.52 L (3.80-5.40) m/uL Hgb 10.8 L 9.8 L (11.4-16.0) gm/dL Hct 31.6 L (34.0-46.0) % MCV 126.3 H 125.5 H (80.0-100.0) fL MCH 39.3 H 38.8 H (25.0-35.0) pg MCHC 30.9 L (31.0-37.0) g/dL RDW 21.2 H 21.7 H (11.5-15.5) % Plt Count 101 L 135 L (150-450) k/uL Lymphocytes # (Manual) 5.18 H (1.0-4.8) k/uL Monocytes # (Manual) 2.45 H 1.43 H (0-1.0) k/uL Metamyelocytes # (Man) 0.14 H 0.26 H (0) k/uL Nucleated RBCs 70 H 92 H (0-0) /100 WBC Macrocytosis Marked A Marked A PT (9.0-12.0) sec INR (<1.2) Sodium 134 L (137-145) mmol/L Potassium 5.3 H (3.5-5.1) mmol/L Chloride 112 H (98-107) mmol/L Carbon Dioxide 17 L (22-30) mmol/L BUN 21 H (7-17) mg/dL Glucose 104 H (74-99) mg/dL Calcium 10.4 H (8.4-10.2) mg/dL Total Bilirubin 15.7 H* (0.2-1.3) mg/dL AST 321 H (14-36) U/L ALT 67 H (4-34) U/L Total Protein 5.9 L (6.3-8.2) g/dL Albumin 2.6 L (3.5-5.0) g/dL 09/22/20 09/22/20 09/22/20 Range/Units 01:44 01:44 05:41 WBC (3.8-10.6) k/uL RBC (3.80-5.40) m/uL Hgb (11.4-16.0) gm/dL Hct (34.0-46.0) % MCV (80.0-100.0) fL MCH (25.0-35.0) pg MCHC (31.0-37.0) g/dL RDW (11.5-15.5) % Plt Count (150-450) k/uL Lymphocytes # (Manual) (1.0-4.8) k/uL Monocytes # (Manual) (0-1.0) k/uL Metamyelocytes # (Man) (0) k/uL Nucleated RBCs (0-0) /100 WBC Macrocytosis PT 16.2 H 15.5 H (9.0-12.0) sec INR 1.6 H 1.5 H (<1.2) Sodium 135 L (137-145) mmol/L Potassium (3.5-5.1) mmol/L Chloride 111 H (98-107) mmol/L Carbon Dioxide 19 L (22-30) mmol/L BUN 23 H (7-17) mg/dL Glucose 104 H (74-99) mg/dL Calcium 10.5 H (8.4-10.2) mg/dL Total Bilirubin 16.0 H* (0.2-1.3) mg/dL AST 286 H (14-36) U/L ALT 65 H (4-34) U/L Total Protein 5.3 L (6.3-8.2) g/dL Albumin 2.4 L (3.5-5.0) g/dL Microbiology - Last 24 Hours (Table) 09/21/20 14:20 Gram Stain - Preliminary Paracentesis Fluid Body Fluid Culture - Preliminary 09/21/20 14:20 Anaerobic Culture - Preliminary Paracentesis Fluid 09/16/20 18:45 Blood Culture - Preliminary Blood No Growth after 120 hours Assessment and Plan (1) Metastatic breast cancer Current Visit: Yes Status: Acute Code(s): C50.919 - MALIGNANT NEOPLASM OF UNSP SITE OF UNSPECIFIED FEMALE BREAST SNOMED Code(s): 553538469 (2) Cholecystitis Current Visit: Yes Status: Acute Code(s): K81.9 - CHOLECYSTITIS, UNSPECIFIED SNOMED Code(s): 34042955 (3) Generalized weakness Current Visit: Yes Status: Acute Code(s): R53.1 - WEAKNESS SNOMED Code(s): 48876204 (4) Hyperbilirubinemia Current Visit: Yes Status: Acute Code(s): E80.6 - OTHER DISORDERS OF BILIRUBIN METABOLISM SNOMED Code(s): 54225723 Plan: Assessment and Recommendations: Metastatic Breast Cancer: - Recent progression with new regimen initiated - She does have more options for treatment although at this time we need MRI to determine plan of care. Cholecystitis versus metastatic progression to liver - Unable to further work-up given her habitual size - GI and Gen Surg are following Acute Respiratory Insufficiency: - Pulmonary has been asked to further evaluate - POtential compoenent of shunting from liver failure Increased Liver Function: - MOnitor COags and labs daily, vit K if needed Metabolic Encephalopathy: - Continue on Lactulose PLan: - Status post frozen section liver biopsy, discussed in detail with Dr. Benavides. Preliminary with diffuse metastatic breast cancer. With rapid progres tala salvage chemotherapy today carboplatin and taxol. - Discussed with primary team and general surgery Addendum: - Re-called to room to talk with family. Long discussion and final decision to forgo chemotherapy and to move forward with comfort measures hospice care only. Physician attest: I have completed the full history and physical and agree with above dictation, dictated as a ascribe
--- NOTE | 2020-09-22 14:52 | P.PN ---
Subjective Progress Note Date: 09/22/20 Principal diagnosis: Hyperbilirubinemia, cholelithiasis This is a 65-year-old female with a history of metastatic breast cancer diagnosed a year ago with progression in the last month. She's been on oral chemotherapy with medication change about 3-4 weeks ago. She presented to the hospital with painless jaundice with a bilirubin of 10 and new onset ascites. Plan was for the patient to get in MRI of the liver with MRCP, however patient body habitus was too large for the MRI machine. Plan is for open MRI at [facility] tomorrow. Patient complaining of upper abdominal pain, denies any nausea or vomiting, is afebrile. LFTs are trending down, total bilirubin up to 16. Patient had Paracentesis yesterday. Fluid studies pending. Today she is supposed to undergo Liver biopsy. Objective - Vital Signs Vital signs: Vital Signs Temp 98.6 F 09/22/20 04:14 Pulse 97 09/22/20 11:25 Resp 16 09/22/20 11:25 BP 103/51 09/22/20 11:25 Pulse Ox 92 L 09/22/20 11:25 Intake & Output 09/21/20 09/22/20 09/22/20 18:59 06:59 18:59 Intake Total 690 50 Balance 690 50 Weight 107.8 kg Intake: Intake, IV Titration 690 50 Amount Cefepime 1 gm In Sodium 50 50 Chloride 0.9% 50 ml @ 12. 5 mls/hr IVPB Q12HR [facility] Rx#:[id number] Sodium Chloride 0.9% 1, 640 000 ml @ 80 mls/hr IV . [id number] [facility] Rx#:[id number] Other: Voiding Method Diaper Incontinent # Voids 3 - Exam General appearance: The patient is alert, oriented, appears in no acute dis tress. Obese. HET: Head is normocephalic and atraumatic. Conjunctiva pink. Sclera icteric.. Neck: Supple without lymphadenopathy. Abdomen: Soft, obese, upper abdominal tenderness, nondistended with bowel sounds. No guarding or rigidity. Extremities: Normal skin color and turgor. No pedal edema Skin: No rashes, jaundice Neurological: No focal deficits. Alert and oriented 3. - Labs CBC & Chem 7: 09/22/20 01:44 09/22/20 01:44 Labs: Abnormal Lab Results - Last 24 Hours (Table) 09/21/20 09/21/20 09/22/20 Range/Units 18:20 20:09 01:44 WBC 14.4 H 13.0 H (3.8-10.6) k/uL RBC 2.74 L 2.52 L (3.80-5.40) m/uL Hgb 10.8 L 9.8 L (11.4-16.0) gm/dL Hct 31.6 L (34.0-46.0) % MCV 126.3 H 125.5 H (80.0-100.0) fL MCH 39.3 H 38.8 H (25.0-35.0) pg MCHC 30.9 L (31.0-37.0) g/dL RDW 21.2 H 21.7 H (11.5-15.5) % Plt Count 101 L 135 L (150-450) k/uL Lymphocytes # (Manual) 5.18 H (1.0-4.8) k/uL Monocytes # (Manual) 2.45 H 1.43 H (0-1.0) k/uL Metamyelocytes # (Man) 0.14 H 0.26 H (0) k/uL Nucleated RBCs 70 H 92 H (0-0) /100 WBC Macrocytosis Marked A Marked A PT (9.0-12.0) sec INR (<1.2) Sodium 134 L (137-145) mmol/L Potassium 5.3 H (3.5-5.1) mmol/L Chloride 112 H (98-107) mmol/L Carbon Dioxide 17 L (22-30) mmol/L BUN 21 H (7-17) mg/dL Glucose 104 H (74-99) mg/dL Calcium 10.4 H (8.4-10.2) mg/dL Total Bilirubin 15.7 H* (0.2-1.3) mg/dL AST 321 H (14-36) U/L ALT 67 H (4-34) U/L Total Protein 5.9 L (6.3-8.2) g/dL Albumin 2.6 L (3.5-5.0) g/dL 09/22/20 09/22/20 09/22/20 Range/Units 01:44 01:44 05:41 WBC (3.8-10.6) k/uL RBC (3.80-5.40) m/uL Hgb (11.4-16.0) gm/dL Hct (34.0-46.0) % MCV (80.0-100.0) fL MCH (25.0-35.0) pg MCHC (31.0-37.0) g/dL RDW (11.5-15.5) % Plt Count (150-450) k/uL Lymphocytes # (Manual) (1.0-4.8) k/uL Monocytes # (Manual) (0-1.0) k/uL Metamyelocytes # (Man) (0) k/uL Nucleated RBCs (0-0) /100 WBC Macrocytosis PT 16.2 H 15.5 H (9.0-12.0) sec INR 1.6 H 1.5 H (<1.2) Sodium 135 L (137-145) mmol/L Potassium (3.5-5.1) mmol/L Chloride 111 H (98-107) mmol/L Carbon Dioxide 19 L (22-30) mmol/L BUN 23 H (7-17) mg/dL Glucose 104 H (74-99) mg/dL Calcium 10.5 H (8.4-10.2) mg/dL Total Bilirubin 16.0 H* (0.2-1.3) mg/dL AST 286 H (14-36) U/L ALT 65 H (4-34) U/L Total Protein 5.3 L (6.3-8.2) g/dL Albumin 2.4 L (3.5-5.0) g/dL Microbiology - Last 24 Hours (Table) 09/21/20 14:20 Gram Stain - Preliminary Paracentesis Fluid Body Fluid Culture - Preliminary 09/21/20 14:20 Anaerobic Culture - Preliminary Paracentesis Fluid 09/16/20 18:45 Blood Culture - Preliminary Blood No Growth after 120 hours Assessment and Plan (1) Hyperbilirubinemia Narrative/Plan: New onset jaundice with mild elevation of bilirubin that was initially detected a month ago. During this hospitalization and initial bilirubin up to 10.2 with bilirubin continuing to increase. Mild elevation of serum transaminases noted. CT of the abdomen did not show any evidence of biliary ductal dilation, however there was moderate amount of ascites noted and liver appeared normal. Ultrasound of the abdomen did not show any evidence of biliary ductal dilation either. Patient was scheduled for MRCP however was unable to complete exam due to body habitus. Open MRI MRCP has been ordered. At this time unclear if we are dealing with intrahepatic cholestasis secondary to medications from recent chemotherapy or if there is a component of obstructive jaundice from metastatic breast cancer. Likely we are dealing with medication-induced hepatitis with underlying liver disease. Labs are consistent with a cholestatic pattern. Paracentesis with fluid studies completed, fluid studies show ascites consistent with liver disease. Patient undergoing liver biopsy. Current Visit: Yes Status: Acute Code(s): E80.6 - OTHER DISORDERS OF BILIRUBIN METABOLISM SNOMED Code(s): 86866852 (2) Ascites Current Visit: Yes Status: Acute Code(s): R18.8 - OTHER ASCITES SNOMED Code(s): 998199732 (3) Generalized weakness Current Visit: Yes Status: Acute Code(s): R53.1 - WEAKNESS SNOMED Code(s): 99401741 (4) Metastatic breast cancer Narrative/Plan: Oncology following closely Current Visit: Yes Status: Acute Code(s): C50.919 - MALIGNANT NEOPLASM OF UNSP SITE OF UNSPECIFIED FEMALE BREAST SNOMED Code(s): 734826266 Plan: 1. MRI liver/MRCP ordered, unable to get patient outpatient open MRI 2. Continue symptomatic and supportive care 3. Patient may have regular diet 4. Daily CMP 5. Repeat PT/INR 6. Paracentesis completed with fluid studies, ascites consistent with liver disease, cytology pending 7. Liver biopsy ordered per oncology Thank you for this consultation, we will continue to follow Dr. J Carlos Pitts I agree with the dictator's note, documented as a scribe by Ligia Cruz.
[2020-09-22] MEDS ORDERED: LORazepam 2 MG/ML INJ IV ONE (17:08)
[2020-09-22] MEDS ORDERED: HYDROmorphone 0.5 MG/0.5 ML SYRINGE IVP STA ×2 (17:09→17:21)
[2020-09-22] MEDS ORDERED: diphenhydrAMINE 50 MG/ML 1 ML VIAL IVP ONE (17:30)
[2020-09-22] MEDS ORDERED: FAMOTIDINE 20 MG/2 ML VIAL IVP ONE (17:30)
[2020-09-22] MEDS ORDERED: ONDANSETRON 16 MG in SODIUM CHLORIDE 0.9% 50 ML IVPB ONE (17:30)
[2020-09-22] MEDS ORDERED: DEXAMETHASONE SOD PHOSPHATE 10 MG/ML 1 ML VIAL IV ONE (17:30)
--- NOTE | 2020-09-22 17:40 | P.PN ---
Progress Note - Text Progress Note Date: 09/22/20 Chief Complaint: Increasing confusion History of presenting complaint: This is a 65-year-old patient who follows with Dr. Andrade. Oncologist Dr. De La Paz. Patient had presented to the ER with her son. He reported that the patient has been feeling weak for several days. Has known metastatic breast cancer with bone metastasis and is currently being treated with oral chemotherapy. Patient has been becoming increasingly confused recently. Patient has been becoming uns teady. Patient does live alone. Has a slight cough. Has chronic unchanged dyspnea. Patient slow to answer questions. Denies any headache or vision changes. No chest pain. Decreased appetite. No fever no chills. Admitted with possible pneumonia, acute metabolic encephalopathy. Could not have an MRI because of her habitus. Fluoroscopy done for elevated right diaphragm negative for diaphragm paralysis. Discussed with Dr. J Carlos Pitts: Patient has known breast cancer with metastatic to liver. Patient also has known cirrhosis from fatty liver. September 18: Patient unable to have MRI of the brain as she will not fit because of her weight. Tired Laying in bed. September 19: Laying in bed. Tired. Answer simple questions. Eating about 50%. Vitamin K given by hematology. September 20: reclining in a chair. Answer questions. Some right upper abdominal pain. No nausea vomiting. Oral intake fair. Discussed with Dr. Ojeda from general surgery: Not any surgical intervention at present time. Discussed with Dr. J Carlos Pitts from GI. She had early discuss care in detail with Dr. De La Paz from oncology.: Patient has known breast cancer with metastatic disease including liver. Also received immunotherapy. Patient has known cirrhosis. At the present time does not dilatation of ducts hence ERCP not indicated. Most likely this is liver decompensation acutely. Doubt cholecystitis. Also spoke to shoe caser. Open MRI possibly tomorrow or day after September 21: Patient still complaining of some right upper quadrant pain. Discussed with Dr. J Carlos Pitts. Matthews to be cholecystitis unlikely. Communicative Dr. Ojeda.-To keep antibiotics on for now. Late in the day discussed with Dr. De La Paz from oncology. Patient most likely has diffuse metastatic disease in the liver. Which may not show up on the PET scan. Plan is for a liver biopsy tomorrow. Open MRI slots not available in town. 1.1 L of diagnostic paracentesis carried out today. Bright yellow fluid. September 22: Patient underwent liver biopsy. Later Mary REVERBERAT[employer] FURNACE SUPERVISOR from oncology: Called to inform me that the frozen section did come back showing metastatic disease. The plan to start chemotherapy today. Making arrangements for the same. Patient is a bit tired. Resting Review of systems: Was done for constitutional, cardiovascular, GI, pulmonary. relevant finding as above Active Medications Benzocaine/Menthol (Benzocaine/Menthol Lozeng 1 Each Lozenge) 1 each MUCOUS MEM Q4HR PRN PRN Reason: Cough Last Admin: 09/18/20 21:48 Dose: 1 each Documented by: Calcium Carbonate/Glycine (Calcium Carbonate 500 Mg Chewable) 500 mg PO QID [facility] Last Admin: 09/22/20 12:22 Dose: Not Given Documented by: Cholecalciferol (Cholecalciferol 25 Mcg (1000 Iu) Tablet) 125 mcg PO DAILY [facility] Last Admin: 09/22/20 07:55 Dose: 125 mcg Documented by: Cyanocobalamin (Cyanocobalamin 500 Mcg Tab) 1,000 mcg PO DAILY [facility] Last Admin: 09/22/20 07:55 Dose: 1,000 mcg Documented by: Gabapentin (Gabapentin 100 Mg Cap) 200 mg PO HS@2000 [facility] Last Admin: 09/21/20 21:40 Dose: 200 mg Documented by: Sodium Chloride (Saline 0.9%) 1,000 mls @ 80 mls/hr IV .[id number] [facility] Last Admin: 09/22/20 17:22 Dose: 80 mls/hr Documented by: Paclitaxel 360 mg/ Sodium (Chloride) 560 mls @ 50 mls/hr IV ONCE ONE; Protocol Stop: 09/23/20 06:41 Carboplatin 330 mg/ Sodium (Chloride) 283 mls @ 283 mls/hr IV ONCE ONE Stop: 09/22/20 18:59 Ondansetron HCl 16 mg/ Sodium (Chloride) 58 mls @ 232 mls/hr IVPB ONCE ONE Stop: 09/22/20 17:44 Lactulose (Lactulose 20 Gm/30 Ml Cup) 20 gm PO BID [facility] Last Admin: 09/22/20 07:56 Dose: 20 gm Documented by: Lisinopril (Lisinopril 20 Mg Tab) 20 mg PO DAILY@0900 [facility] Last Admin: 09/22/20 07:56 Dose: Not Given Documented by: Multivitamins (Multivitamins, Thera 1 Each Tab) 1 each PO DAILY [facility] Last Admin: 09/22/20 07:55 Dose: 1 each Documented by: Ondansetron HCl (Ondansetron 4 Mg/2 Ml Vial) 4 mg IVP Q6HR PRN PRN Reason: Nausea And Vomiting Oxybutynin Chloride (Oxybutynin 10 Mg Tab.Er.24) 10 mg PO DAILY@0900 [facility] Last Admin: 09/22/20 07:55 Dose: 10 mg Documented by: Past medical history to include: Metastatic breast cancer with metastases to the bone on oral chemotherapy, hypertension, hyperlipidemia, DJD, Social history: Remote history of smoking. No alcohol. Lives alone. Family history: Cancer Physical examination: VITAL SIGNS: 97.9, 100, 18, 104/60, 91% room air GENERAL: Reclining in bed awake, tired EYES: Pupils equal. Conjunctiva normal. HEENT: External appearance of nose and ears normal, oral cavity grossly normal. NECK: JVD not raised; masses not palpable. HEART: First and second heart sounds are normal; no edema. LUNGS: Respiratory rate increased decreased breath sounds. ABDOMEN: Soft, right upper quadrant tenderness, no guarding rigidity,, liver spleen not palpable, no masses palpable. PSYCH: Patient able to answer simple questions MUSCULAR skeletal: Evidence of OA INVESTIGATIONS, reviewed in the clinical context: September 22: WBC 13 hemoglobin 9.8 INR 1.5 potassium 4.6 creatinine 1.02. Total bilirubin 16 AST 286 ALT 65 albumin 2.4 September 21: WBC 14.4 hemoglobin 10.8 platelets 101 potassium 4.9 creatinine 0.62 total bilirubin 16.4 AST 317 ALT 69 September 20: WBC 19.4 hemoglobin 9.7 which is 127 INR 1.5 potassium 4.5 creatinine 0.7 total bilirubin 15.1 AST 268 ALT 66 September 19: WBC 14.9 and globin 10.3 platelets 136 potassium 5 total bilirubin 12.6 2-D echocardiogram: EF greater than 55%. No wall motion up to monitor. High resolution CT chest: Mild pulmonary interstitial infiltrates. Improved September 18: WBC 10.1 hemoglobin 10.5 platelets 135 potassium 5.2 creatinine 0.71 AST 247 ALT 51 Pro-calcitonin 0.47 CA 15-3 antigen: 1171 CA 27-29 1854 vitamin B12 greater than 4000 WBC 10 hemoglobin 9.8 MCV 125 platelets 113 potassium 4.6 creatinine 0.84 Total bilirubin 9.6 AST 18T ALT 43 alkaline phosphatase 98 albumin 2.7 Admission labs: Potassium 5.4 lactic acid 2.2. Total bilirubin 10.2 AST 205 ALT 43 UA positive for small leukoesterase, 10 WBC COVID 19 negative EKG tracing personally reviewed by me-normal sinus rhythm, nonspecific ST segment changes Gallbladder ultrasound: per lobe liver eyesight chronic contents with human with sludge and with hyperechoic focus in the fundus abnormally thickened wall fluid noted surrounding fundus. CT abdomen fundus: Moderate abdominal ascites. Gallstones. Chest CTA: Negative for PE. New pulmonary interstitial infiltrates CT brain: Encephalomyelitis year no midline shift. Chest x-ray film personally reviewed by me-elevated right diaphragm Assessment and plan: -Acute metabolic encephalopathy: Likely hepatic encephalopathy.: Some improvement lactulose. -Possible pneumonia, suspect gram-negative organism-improved On IV cefepime-completed course - acute liver decompensation, multifactorial in the setting of underlying cirrhosis, metastatic disease possible chemotherapy: Worsening Metastatic disease confirmed on liver biopsy/frozen section -Metastatic breast cancer with bone and confirmed liver metastases on liver biopsy: With progression Patient to be started on chemotherapy for salvage per oncology -Morbid obesity BMI 47.2 -Chronic shortness of breath. Multifactorial including possible fibrosis, obesity hypoventilation syndrome -Thrombocytopenia, likely secondary to underlying malignancy and/or chemotherapy Follow CBC -Essential hypertension Prinivil -Peripheral neuropathy On Neurontin -Vitamin B-12 deficiency B12 supplement -Chronic urinary stress incontinence On oxybutynin -Diagnoses of cholecystitis dropped DC cefepime Continue current medication. And treatment plan. Chemotherapy as per oncology. Prognosis guarded..
--- NOTE | 2020-09-22 17:45 | US ---
EXAMINATION TYPE: US biopsy liver DATE OF EXAM: 09/22/2020 HISTORY: Elevated liver function tests. History of breast cancer. Concern for metastatic disease. COMPARISON: Gallbladder ultrasound 09/16/2020. CT abdomen pelvis 09/16/2020. PET/CT 10/02/2019. CT chest a bdomen pelvis 09/08/2019. SOLE CUTTER: Dr. Tara Benavides PROCEDURE: Preliminary preprocedure ultrasound imaging demonstrates diffusely coarsened hepatic echotexture with no discrete mass. Informed consent was obtained from the patient's son. The procedure was also discussed with the patie nt. Patient was positioned supine. Maximal barrier technique was utilized. The skin overlying a suitable path to the liver was localized using ultrasound, the skin was prepped and draped. Ultrasound was uti lized with sterile technique. Lidocaine was used for local anesthesia. A skin charity made with a scalpe l. Under direct ultrasound guidance, a 17-gauge introducer needle was advanced into the left liver, the stylet was removed, and 18-gauge core biopsy needle was advanced into the liver and core biopsy o btained. 2 core biopsy specimens were obtained in total. 1 core biopsy was submitted fresh for froze n section. 1 core biopsy was submitted in formalin for histopathology. Hemostasis was achieved. There was no immediate complication and patient remained in stable condition. Post procedure ultrasound imaging demonstrates no significant hemorrhage. IMPRESSION: Status post ultrasound-guided random liver parenchymal core biopsy. 2 18-gauge core biopsy specimens obtained. Pathology pending.
[2020-09-22] MEDS ORDERED: SODIUM CHLORIDE 0.9% IV ONE ×2 (18:00→19:30)
[2020-09-22] MEDS ORDERED: CARBOPLATIN IV ONE (18:00)
[2020-09-22] MEDS ORDERED: LORazepam 2 MG/ML INJ IV PRN (18:50)
[2020-09-22] MEDS ORDERED: PACLITAXEL IV ONE (19:30)
[2020-09-22] MEDS: HYDROmorphone 0.5 MG/0.5 ML SYRINGE IVP PRN (20:05)
[2020-09-22] MEDS: DEXTROSE 5%-0.9% NACL 1,000 ML IV SCH (20:06)
[2020-09-23] MEDS: HYDROmorphone 0.5 MG/0.5 ML SYRINGE IVP PRN ×3 (03:56→17:44)
[2020-09-23 05:01] VITALS: BP 78/49; PULSE 90; RESP 18; TEMP 98.3
[2020-09-23] MEDS: DEXTROSE 5%-0.9% NACL 1,000 ML IV SCH (07:50)
--- NOTE | 2020-09-23 10:17 | P.PN ---
Subjective Progress Note Date: 09/23/20 Principal diagnosis: Metastatic Breast Cancer PLan is patient to go hospice home with hospice care, discussed with case management. Objective - Vital Signs Vital signs: Vital Signs Temp 98.3 F 09/23/20 05:00 Pulse 90 09/23/20 05:00 Resp 18 09/23/20 05:00 BP 78/49 09/23/20 05:00 Pulse Ox 94 L 09/23/20 05:00 Intake & Output 09/22/20 09/23/20 09/23/20 18:59 06:59 18:59 Intake Total 50 747 Output Total 20 Balance 50 727 Intake: Intake, IV Titration 50 747 Amount Cefepime 1 gm In Sodium 50 Chloride 0.9% 50 ml @ 12. 5 mls/hr IVPB Q12HR [facility] Rx#:[id number] Dextrose 5%-0.9% NaCl 1, 747 000 ml @ 83 mls/hr IV . Q12H3M [facility] Rx#:[id number] Output: Urine 20 Other: Voiding Method Diaper Diaper Incontinent Incontinent - Exam Constitutional General appearance: cooperative, morbidly obese - EENT Eyes: scleral icterus ENT: hard of hearing - Neck Neck: normal ROM - Respiratory Respiratory: bilateral: diminished (Bilateral Bases) - Cardiovascular Rhythm: regularly irregular - Gastrointestinal General gastrointestinal: soft, tenderness - Integumentary Integumentary: jaundiced - Neurologic non focal - Musculoskeletal Musculoskeletal: generalized weakness - Psychiatric Lethargic. Psychiatric: anxious lethargic - Labs CBC & Chem 7: 09/22/20 01:44 09/22/20 01:44 Labs: Microbiology - Last 24 Hours (Table) 09/16/20 18:45 Blood Culture - Final Blood No Growth after 144 hours 09/21/20 14:20 Gram Stain - Preliminary Paracentesis Fluid Body Fluid Culture - Preliminary Assessment and Plan (1) Metastatic breast cancer Status: Acute Code(s): C50.919 - MALIGNANT NEOPLASM OF UNSP SITE OF UNSPECIFIED FEMALE BREAST SNOMED Code(s): 432484347 (2) Cholecystitis Status: Acute Code(s): K81.9 - CHOLECYSTITIS, UNSPECIFIED SNOMED Code(s): 50395013 (3) Generalized weakness Status: Acute Code(s): R53.1 - WEAKNESS SNOMED Code(s): 43012743 (4) Hyperbilirubinemia Status: Acute Code(s): E80.6 - OTHER DISORDERS OF BILIRUBIN METABOLISM SNOMED Code(s): 56816692 Plan: Assessment and Recommendations: Metastatic Breast Cancer: - Recent progression with new regimen initiated - She does have more options for treatment although at this time we need MRI to determine plan of care. - Rapid progression in lover overall poor prognosis Cholecystitis versus metastatic progression to liver Acute Respiratory Insufficiency: Increased Liver Function: Metabolic Encephalopathy: PLan: - Status post frozen section liver biopsy, discussed in detail with Dr. Benavides. Preliminary with diffuse metastatic breast cancer. With rapid progression salvage chemotherapy today carboplatin and taxol. - Discussed with primary team and general surgery Addendum: - Re-called to room to talk with family. Long discussion and final decision to forgo chemotherapy and to move forward with comfort measures hospice care only. Plan is home with [facility]NA or hospice house hospice today, ok to manage orders. COntinue supportive comfort measures only
--- NOTE | 2020-09-23 22:54 | P.DS ---
Providers Date of admission: 09/16/20 22:35 Expected date of discharge: 09/23/20 Attending physician: Shaun De La Fuente Consults: 09/16/20 22:31 Consult Physician Urgent Consulting Provider: Za Pitts Consult Reason/Comments: Hyperbilirubinemia, gallstones Do you want consulting provider notified?: Yes 09/16/20 22:34 Consult Physician Urgent Consulting Provider: Davy De La Paz Consult Reason/Comments: metastatic breast cancer Do you want consulting provider notified?: Yes 09/17/20 17:41 Consult Physician Routine Consulting Provider: Pedro Dean Consult Reason/Comments: Shortness of breath Do you want consulting provider notified?: Yes Primary care physician: [facility] Course: Chief Complaint: Increasing confusion History of presenting complaint: This is a 65-year-old patient who follows with Dr. Andrade. Oncologist Dr. De La Paz. Patient had presented to the ER with her son. He reported that the patient has been feeling weak for several days. Has known metastatic breast cancer with bone metastasis and is currently being treated with oral chemotherapy. Patient has been becoming increasingly confused recently. Patient has been becoming unsteady. Patient does live alone. Has a slight cough. Has chronic unchanged dyspnea. Patient slow to answer questions. Denies any headache or vision changes. No chest pain. Decreased appetite. No fever no chills. Admitted with possible pneumonia, acute metabolic encephalopathy. Could not have an MRI because of her habitus. Fluoroscopy done for elevated right diaphragm negative for diaphragm paralysis. Discussed with Dr. J Carlos Pitts: Patient has known breast cancer with metastatic to liver. Patient also has known cirrhosis from fatty liver. September 18: Patient unable to have MRI of the brain as she will not fit because of her weight. Tired Laying in bed. September 19: Laying in bed. Tired. Answer simple questions. Eating about 50%. Vitamin K given by hematology. September 20: reclining in a chair. Answer questions. Some right upper abdominal pain. No nausea vomiting. Oral intake fair. Discussed with Dr. Ojeda from general surgery: Not any surgical intervention at present time. Discussed with Dr. J Carlos Pitts from GI. She had early discuss care in detail with Dr. De La Paz from oncology.: Patient has known breast cancer with metastatic disease including liver. Also received immunotherapy. Patient has known cirrhosis. At the present time does not dilatation of ducts hence ERCP not indicated. Most likely this is liver decompensation acutely. Doubt cholecystitis. Also spoke to case hardener. Open MRI possibly tomorrow or day after September 21: Patient still complaining of some right upper quadrant pain. Discussed with Dr. J Carlos Pitts. [place] to be cholecystitis unlikely. Communicative Dr. Ojeda.-To keep antibiotics on for now. Late in the day discussed with Dr. De La Paz from oncology. Patient most likely has diffuse metastatic disease in the liver. Which may not show up on the PET scan. Plan is for a liver biopsy tomorrow. Open MRI slots not available in [facility]. 1.1 L of diagnostic paracentesis carried out today. Bright yellow fluid. September 22: Patient underwent liver biopsy. Later Mary [employer] from oncology: Called to inform me that the frozen section did come back showing metastatic disease. The plan to start chemotherapy today. Making arrangements for the same. Patient is a bit tired. Resting September 23: Dr. De La Paz called me yesterday evening. Patient had declined. Family decided proceed with hospice. Patient be willing later today to go to hospice in [place]. Medications discontinued. Son at the bedside. Patient rather lethargic. Comfort measures in place. Discussion and discharge planning more than 35 minutes Consultation: Dr. correa from oncology Dr. J Carlos Pitts from GI Dr. Ojeda general surgery Dr. No pulmonary Past medical history to include: Metastatic breast cancer with metastases to the bone on oral chemotherapy, hyper tension, hyperlipidemia, DJD, Social history: Remote history of smoking. No alcohol. Lives alone. Family history: Cancer Physical examination: VITAL SIGNS: 98.3, 90, 18, 78/49, 94% to liters General: Laying in bed, lethargic, barely arousable INVESTIGATIONS, reviewed in the clinical context: September 22: WBC 13 hemoglobin 9.8 INR 1.5 potassium 4.6 creatinine 1.02. Total bilirubin 16 AST 286 ALT 65 albumin 2.4 September 21: WBC 14.4 hemoglobin 10.8 platelets 101 potassium 4.9 creatinine 0.62 total bilirubin 16.4 AST 317 ALT 69 September 20: WBC 19.4 hemoglobin 9.7 which is 127 INR 1.5 potassium 4.5 creatinine 0.7 total bilirubin 15.1 AST 268 ALT 66 September 19: WBC 14.9 and globin 10.3 platelets 136 potassium 5 total bilirubin 12.6 2-D echocardiogram: EF greater than 55%. No wall motion up to monitor. High resolution CT chest: Mild pulmonary interstitial infiltrates. Improved September 18: WBC 10.1 hemoglobin 10.5 platelets 135 potassium 5.2 creatinine 0.71 AST 247 ALT 51 Pro-calcitonin 0.47 CA 15-3 antigen: 1171 CA 27-29 1854 vitamin B12 greater than 4000 WBC 10 hemoglobin 9.8 MCV 125 platelets 113 potassium 4.6 creatinine 0.84 Total bilirubin 9.6 AST 18T ALT 43 alkaline phosphatase 98 albumin 2.7 Admission labs: Potassium 5.4 lactic acid 2.2. Total bilirubin 10.2 AST 205 ALT 43 UA positive for small leukoesterase, 10 WBC COVID 19 negative EKG tracing personally reviewed by me-normal sinus rhythm, nonspecific ST segment changes Gallbladder ultrasound: per lobe liver eyesight chronic contents with human with sludge and with hyperechoic focus in the fundus abnormally thickened wall fluid noted surrounding fundus. CT abdomen fundus: Moderate abdominal ascites. Gallstones. Chest CTA: Negative for PE. New pulmonary interstitial infiltrates CT brain: Encephalomyelitis year no midline shift. Chest x-ray film personally reviewed by me-elevated right diaphragm Assessment and plan: -Acute metabolic encephalopathy: Likely hepatic encephalopathy.: Worsening lactulose. -Possible pneumonia, suspect gram-negative organism-improved On IV cefepime-completed course - acute liver decompensation, multifactorial in the setting of underlying cirrhosis, metastatic disease : Worsening Metastatic disease confirmed on liver biopsy/frozen section -Metastatic breast cancer with bone and confirmed liver metastases on liver biopsy: With progression -Morbid obesity BMI 47.2 -Chronic shortness of breath. Multifactorial including possible fibrosis, obesity hypoventilation syndrome -Thrombocytopenia, likely secondary to underlying malignancy and/or chemotherapy Follow CBC -Essential hypertension Prinivil -Peripheral neuropathy On Neurontin -Vitamin B-12 deficiency B12 supplement -Chronic urinary stress incontinence On oxybutynin -Diagnoses of cholecystitis dropped DC cefepime Disposition: [facility] hospice. Under hospice Patient Condition at Discharge: Stable Plan - Discharge Summary Discharge Rx Participant: No New Discharge Prescriptions: Discontinued lisinopriL [Prinivil] 20 mg PO DAILY@0900 Oxybutynin Chloride [Oxybutynin Chloride ER] 10 mg PO DAILY@0900 Multivitamins, Thera [Multivitamin (formulary)] 1 tab PO DAILY Gabapentin [Neurontin] 200 mg PO HS@2000 Cyanocobalamin (Vitamin B-12) [Vitamin B-12] 1,000 mcg PO DAILY Cholecalciferol (Vitamin D3) [Vitamin D3] 125 mcg PO DAILY Calcium Carbonate [Calcium] 600 mg PO DAILY Ferrous Sulfate [Feosol] 325 mg PO DAILY Calcium Carbonate [Tums] 500 mg PO QID Ondansetron [Zofran] 4 mg PO Q6H PRN PRN Reason: Nausea Letrozole [Femara] 2.5 mg PO HS@2000 Abemaciclib [Verzenio] 50 mg PO BID@1000,2100 Follow up Appointment(s)/Referral(s): Jorge Andrade DO [Primary Care Provider] - As Needed Activity/Diet/Wound Care/Special Instructions: PATIENTS HOME CHEMO MEDICATIONS ARE IN PATIENT PHARMACY BIN: LETROZOLE & VERZENIO Patient is scheduled for MRI/MRCP at [facility] on 09/30/20 at 8:45 a.m. Patient should have nothing by mouth 6 hours before the procedure. Discharge Disposition: DISCH TO HOSPICE MED FACILTY
== END 2020-09-23 19:22 | disposition hospice, inpatient (51) | DRG 435 ==
LOC: EC 17:42 → 4SSUR 22:35 → 5NMEDONC 09-22 18:13
PROVIDERS: ADMIT Hospitalist; ATTEND Hospitalist
PROC: 0W9G3ZX Drainage of Peritoneal Cavity, Percutaneous Approach, Diagnostic (ICD-10-PCS; principal; 2020-09-21)
PROC: 0FB03ZX Excision of Liver, Percutaneous Approach, Diagnostic (ICD-10-PCS; 2020-09-22)
DX: C78.7 Secondary malignant neoplasm of liver and intrahepatic bile duct (principal); G93.41 Metabolic encephalopathy; J15.6 Pneumonia due to other Gram-negative bacteria; C77.3 Secondary and unspecified malignant neoplasm of axilla and upper limb lymph nodes; C79.51 Secondary malignant neoplasm of bone; E66.2 Morbid (severe) obesity with alveolar hypoventilation; Z68.42 Body mass index [BMI] 45.0-49.9, adult; R18.8 Other ascites; J45.909 Unspecified asthma, uncomplicated; K72.90 Hepatic failure, unspecified without coma; C50.919 Malignant neoplasm of unspecified site of unspecified female breast; D69.59 Other secondary thrombocytopenia; K74.60 Unspecified cirrhosis of liver; K76.0 Fatty (change of) liver, not elsewhere classified; G93.89 Other specified disorders of brain; D32.9 Benign neoplasm of meninges, unspecified; Z51.5 Encounter for palliative care; Z20.822 Contact with and (suspected) exposure to COVID-19; I10 Essential (primary) hypertension; E78.5 Hyperlipidemia, unspecified; G62.9 Polyneuropathy, unspecified; E80.6 Other disorders of bilirubin metabolism; E53.8 Deficiency of other specified B group vitamins; N39.3 Stress incontinence (female) (male); H91.92 Unspecified hearing loss, left ear; K59.00 Constipation, unspecified; G89.29 Other chronic pain; M54.5 Low back pain; M19.90 Unspecified osteoarthritis, unspecified site; Z60.2 Problems related to living alone; Z79.811 Long term (current) use of aromatase inhibitors; Z79.899 Other long term (current) drug therapy; Z91.81 History of falling; Z87.891 Personal history of nicotine dependence; Z96.653 Presence of artificial knee joint, bilateral; Z87.39 Personal history of other diseases of the musculoskeletal system and connective tissue; Z98.42 Cataract extraction status, left eye; Z96.1 Presence of intraocular lens; Z87.440 Personal history of urinary (tract) infections; Z98.890 Other specified postprocedural states; Z71.3 Dietary counseling and surveillance; Z80.9 Family history of malignant neoplasm, unspecified
CPT/HCPCS: 36415; 47000; 49083; 70450; 71045; 71250; 71275; 74177; 76000; 76705; 76942; 80053; 81001; 82042; 82140; 82306; 82607; 83540; 83550; 83605; 83615; 83735; 83880; 83921; 84145; 84157; 84484; 84550; 85025; 85027; 85045; 85379; 85610; 85730; 86300; 87040; 87070; 87075; 87205; 87635; 88108; 88305; 88307; 88331; 88341; 88342; 89050; 93005; 93306; 96361; 96365; 99285